=== PATIENT | male | born 1950 | race Two or more races ===

== ENCOUNTER 2024-02-25 15:04 | Inpatient (IN) | payer MEDICARE, MEDICAID ==
[~2024-02-25] VITALS: Ht 172.7 cm; Wt 60.9 kg
[2024-02-25] MEDS ORDERED: METHADONE HCL 10 MG TAB PO ONE ×2 (17:00)
[2024-02-25] MEDS ORDERED: SODIUM CHLORIDE 0.9% 1,000 ML IV ONE (17:00)
--- NOTE | 2024-02-25 17:06 | ED.PDOC ---
History of Present Illness HPI Comments 73 year old male brought in by EMS presents to the ED with a chief complaint of generalized weakness onset today. Patient states he woke up today experiencing weakness. Patient has been experiencing a productive cough for the past 3 months that has not improved. Upon ED arrival O2 sat was 98% with no respiratory distress noted. PMHx HTN, anemia, GERD, HLD, Liver cirrhosis, DM. Denies chest pain, shortness of breath, fever, congestion, sore throat, dizziness, headache, nausea, vomiting, diarrhea. No other symptoms or modifying factors present at this time. Chief Complaint: Shortness of Breath Time Seen by MD: 16:47 Primary Care Provider: GA Reviewed Notes: Medications, Allergies Allergies: Coded Allergies: Sulfamethoxazole w/Trimethoprim (Verified Allergy, Intermediate, 02/25/24) Codeine (Verified Allergy, Mild, 02/25/24) Information Source: Patient, Emergency Med Personnel Mode of Arrival: EMS Severity: Moderate Timing: Hours Duration: Since onset Prehospital treatment: None Past Medical History PAST MEDICAL HISTORY: Anemia, DM, GERD, High Lipids, HTN, Liver Surgical History (Other): RT leg bypass Family History Family History: Unknown Social History Smoker: Non-Smoker Alcohol: Denies ETOH Use Drugs: Denies Drug Use Constitutional: reports: weakness; denies: chills, diaphoresis, fatigue, fever, malaise, sweats, others EENTM: denies: blurred vision, double vision, ear bleeding, ear discharge, ear drainage, ear pain, ear ringing, eye pain, eye redness, hearing loss, mouth pain, mouth swelling, nasal discharge, nose bleeding, nose congestion, nose pain, photophobia, tearing, throat pain, throat swelling, voice changes, others Respiratory: reports: cough; denies: hemoptysis, orthopnea, SOB at rest, shortness of breath, SOB with excertion, stridor, wheezing, others Cardiovascular: denies: chest pain, dizzy spells, diaphoresis, Dyspnea on exertion, edema, irregular heart beat, left arm pain, lightheadedness, palpitations, PND, syncope, others Gastrointestinal: denies: abdomen distended, abdominal pain, blood streaked bowels, constipated, diarrhea, dysphagia, difficulty swallowing, hematemesis, melena, nausea, poor appetite, poor fluid intake, rectal bleeding, rectal pain, vomiting, others Genitourinary: denies: burning, dysuria, flank pain, frequency, hematuria, incontinence, penile discharge, penile sore, pain, testicle pain, testicle swelling, urgency, others Neurological: reports: weakness; denies: dizziness, fainting, headache, left sided numbness, left sided weakness, numbness, paresthesia, pre-existing deficit, right sided numbness, right sided weakness, seizure, speech problems, tingling, tremors, others Musculoskeletal: denies: back pain, gout, joint pain, joint swelling, muscle pain, muscle stiffness, neck pain, others Integumetry: denies: bruises, change in color, change in hair/nails, dryness, laceration, lesions, lumps, rash, wounds, others Allergic/Immunocompromised: denies: Difficulty Healing, Frequent Infections, Hives, Itching, others Hematologic/Lymphatic: denies: anemia, blood clots, easy bleeding, easy bruising, swollen glands, others Endocrine: denies: excessive hunger, excessive sweating, excessive thirst, excessive urination, flushing, intolerance to cold, intolerance to heat, unexplained weight gain, unexplained weight loss, others Psychiatric: denies: anxiety, bipolar disorder, depression, hopeless, panic disorder, schizophrenia, sleepless, suicidal, others All Other Systems: Reviewed and Negative Physical Exam General Appearance: No Apparent Distress, Thin HEENT: Normal ENT Inspection, PERRL/EOMI Neck: Full Range of Motion, Non-Tender, Normal, Normal Inspection Respiratory: Chest Non-Tender, Lungs Clear, No Accessory Muscle Use, No Respiratory Distress, Normal Breath Sounds Cardiovascular: No Edema, No JVD, No Murmur, No Gallop, Normal Peripheral Pulses, Regular Rate/Rhythm Breast Exam: Deferred Gastrointestinal: No Organomegaly, Non Tender, No Pulsatile Mass, Normal Bowel Sounds, Soft Genitalia: Deferred Pelvic: Deferred Rectal: Deferred Extremities: No calf tenderness, Normal capillary refill, Normal inspection, Normal range of motion, Non-tender, No pedal edema Neurologic: Alert, turf sales person II-XII nml as Tested, No Motor Deficits, Normal Affect, Normal Mood, No Sensory Deficits Cerebellar Function: Normal Reflexes: Normal Skin: Dry, Normal Color, Warm Peripheral Pulses: 1+ carotid (R), 1+ carotid (L) Lymphatic: No Adenopathy Was a procedure done? Was a procedure done?: No EKG EKG : Pulse Rate (adult): 53 Shanks: RAD Cardiac Rhythm: PAC's Block: RBBB Differential Dx Considerations may include: Electrolyte disorder myocardial infarction angina pneumonia CHF pulmonary embolism atrial fibrillation COPD exacerbation X-Ray, Labs, Meds, VS Vital Signs Date Time Temp Pulse Resp B/P (MAP) Pulse Ox O2 Delivery O2 Flow Rate FiO2 02/25/24 17:43 53 02/25/24 15:15 18 98 Room Air* 0 21 02/25/24 15:13 53 02/25/24 15:10 98.1 59 16 133/70 (91) 98 Lab Test 02/25/24 17:44 Range/Units White Blood Count 13.4 H 4.4-10.8 10^3/uL Red Blood Count 4.02 L 4.5-5.90 10^6/uL Hemoglobin 13.1 L 13.5-17.5 g/dL Hematocrit 39.3 L 41.0-53.0 % Mean Corpuscular Volume 97.9 80.0-100.0 fL Mean Corpuscular Hemoglobin 32.7 H 28.0-32.0 pg Mean Corpuscular Hemoglobin Concent 33.4 32.0-36.0 g/dL Red Cell Distribution Width 14.5 H 11.8-14.3 % Platelet Count 377 140-450 10^3/uL Mean Platelet Volume 7.3 6.9-10.8 fL Neutrophils (%) (Auto) 61.1 37.0-80.0 % Lymphocytes (%) (Auto) 30.0 10.0-50.0 % Monocytes (%) (Auto) 7.4 0.0-12.0 % Eosinophils (%) (Auto) 1.3 0.0-7.0 % Basophils (%) (Auto) 0.2 0.0-2.0 % Neutrophils # (Auto) 8.2 1.6-8.6 10 ^3/uL Lymphocytes # (Auto) 4.0 0.4-5.4 10 ^3/uL Monocytes # (Auto) 1.0 0-1.3 10 ^3/uL Eosinophils # (Auto) 0.2 0-0.8 10 ^3/uL Basophils # (Auto) 0 0-0.2 10 ^3/uL Nucleated Red Blood Cells 0.2 % D-Dimer, Quantitative 0.37 0.0-0.49 mg/L FEU Sodium Level 144 136-145 mmol/L Potassium Level 4.5 3.5-5.1 mmol/L Chloride Level 108 H 98-107 mmol/L Carbon Dioxide Level 29 20-31 mmol/L Anion Gap 7 5-15 Blood Urea Nitrogen 12 9-23 mg/dL Creatinine 0.93 0.700-1.30 mg/dL Glomerular Filtration Rate Calc 87 >90 mL/min BUN/Creatinine Ratio 12.9 10.0-20.0 Serum Glucose 82 74-106 mg/dL Calcium Level 10.0 8.7-10.4 mg/dL Magnesium Level 2.1 1.6-2.6 mg/dL Total Bilirubin 0.5 0.2-1.0 mg/dL Aspartate Amino Transferase (AST) 26 13-40 U/L Alanine Aminotransferase (ALT) 42 H 7-40 U/L Alkaline Phosphatase 97 46-116 U/L Troponin I High Sensitivity 4 </=54 ng/L Total Protein 6.0 5.7-8.2 g/dL Albumin 4.2 3.2-4.8 g/dL [place] [id number] Ph: [phone] DIAGNOSTIC IMAGING Diagnostic Imaging Report : [id number] Signed PATIENT: TIERA SALMERON ACCT: [id number] UNIT: [id number] : 1950 LOC: ER ROOM / BED: / AGE / SEX: 73 / M ADM STATUS: REG ER SERVICE 51 ORDERING PHYSICIAN: JUDY MARI MD PROCEDURE(s): CXR2 - CHEST TWO VIEWS ROUTINE REASON: sob ORDER NUMBER(s): [id number], ACCESSION NUMBER(s): [id number] EXAM: XR Chest, 2 Views CLINICAL INDICATION: sob TECHNIQUE: Frontal and lateral views of the chest. COMPARISON: None FINDINGS: LUNGS AND PLEURAL SPACES: Unremarkable. No consolidation. No pneumothorax. HEART: Unremarkable. No cardiomegaly. MEDIASTINUM: Unremarkable. Normal mediastinal contour. BONES/JOINTS: Unremarkable. No acute fracture. OTHER FINDINGS: . . . IMPRESSION: No acute cardiopulmonary process. HS:Y ATED BY: JAMES MARTINEZ MD DICTATED DATE/TIME: 02/25/241719 SIGNED BY: JAMES MARTINEZ MD SIGNED DATE/TIME: 02/25/241719 CC: X-Ray, Labs, Meds, VS Comment Course in the emergency department eventful patient came in complaining of generalized weakness shortness of breath chest pain and for the past three months cough and congestion patient with a history of irregular heartbeat hypertension COPD DM and CHF The chest x-ray is normal EKG shows normal sinus rhythm next 53 with PACs right bundle-branch block and right axis deviation Troponin at four CMP normal D-dimer 0.37 Urine pending Magnesium 2.1 CBC [id number] with 61% neutrophils normal H&H Patient will be admitted for further care Time of 1ST Reevaluation: 17:17 Reevaluation 1ST: Unchanged Time of 2ND Reevaluation: 18:38 Reevaluation 2ND: Improved Patient Education/Counseling: Diagnosis, Treatment, Prognosis Family Education/Counseling: No Family Present Additional Information The following tests were ordered, and results were reviewed by me: TROP. CBC, CMP, D-DIMER, UA, XY CHEST 2 VIEWS, MAGNESIUM, EKG, BLOOD CULTURE Additional Information was gathered from interviewing the following independent historians: EMS I reviewed and agreed with the following test results read by other providers: XY CHEST 2 VIEWS I discussed treatment and results with medical personnel and: patient Departure 1 Departure Time of Disposition: 18:39 Impression: Primary Impression: COPD with exacerbation Additional Impressions: Generalized weakness Chest pain Disposition: ADMITTED INPATIENT Admit to: Tele Condition: Fair Critical Care Note Critical Care Time?: No Stability Stability form required: Yes Unstable for transfer: Telemetry monitoring (Telemetry monitoring required), Requires medication (Requires Med for stabilization) Heart Score Heart Score: Heart Score Response (Comments) Value History Moderate Suspicious 1 EKG Repolarization Disturb 1 Age >65 2 Risk Factors >3 or Hx ASHD 2 Troponin Normal limit 0 Total 6 I personally scribed for JUDY MARI MD ([email or web address]) on 02/25/24 at 17:06. Electronically submitted by Breanna Mcconnell ([email or web address]). I personally scribed for JUDY MARI MD ([email or web address]) on 02/25/24 at 17:11. Electronically submitted by Breanna Mcconnell ([email or web address]). I personally scribed for JUDY MARI MD ([email or web address]) on 02/25/24 at 17:35. Electronically submitted by Breanna Mcconnell ([email or web address]). JUDY MARI MD Feb 25, 2024 17:06
--- NOTE | 2024-02-25 17:22 | DVH ---
EXAM: XR Chest, 2 Views CLINICAL INDICATION: sob TECHNIQUE: Frontal and lateral views of the chest. COMPARISON: None FINDINGS: LUNGS AND PLEURAL SPACES: Unremarkable. No consolidation. No pneumothorax. HEART: Unremarkable. No cardiomegaly. MEDIASTINUM: Unremarkable. Normal mediastinal contour. BONES/JOINTS: Unremarkable. No acute fracture. OTHER FINDINGS: . . . IMPRESSION: No acute cardiopulmonary process. HS:Y
[2024-02-25 18:12] LABS: Basophils # (auto) 0 10 ^3/uL (0-0.2); Basophils % (auto) 0.2 % (0.0-2.0); Eosinophils # (auto) 0.2 10 ^3/uL (0-0.8); Eosinophils % (auto) 1.3 % (0.0-7.0); Hematocrit 39.3 % (41.0-53.0); Hemoglobin 13.1 g/dL (13.5-17.5); Mean Corpuscular Hemoglobin 32.7 pg (28.0-32.0); Mean Corpuscular Hgb Conc. 33.4 g/dL (32.0-36.0); Mean Corpuscular Volume 97.9 fL (80.0-100.0); Monocytes % (auto) 7.4 % (0.0-12.0); Neutrophils # (auto) 8.2 10 ^3/uL (1.6-8.6); Neutrophils % (auto) 61.1 % (37.0-80.0); Nucleated Red Blood Cells % 0.2 %; Platelet Count (auto) 377 10^3/uL (140-450); Red Blood Cells 4.02 10^6/uL (4.5-5.90); Red Cell Distribution Width 14.5 % (11.8-14.3); White Blood Cell 13.4 10^3/uL (4.4-10.8)
[2024-02-25 18:17] LABS: Albumin 4.2 g/dL (3.2-4.8); Alkaline Phosphatase 97 U/L (46-116); Anion Gap 7 (5-15); Aspartate Aminotransferase 26 U/L (13-40); BUN/Creatinine Ratio 12.9 (10.0-20.0); Bilirubin, Total 0.5 mg/dL (0.2-1.0); Blood Urea Nitrogen 12 mg/dL (9-23); Carbon Dioxide 29 mmol/L (20-31); Glucose 82 mg/dL (74-106); Magnesium 2.1 mg/dL (1.6-2.6); Potassium 4.5 mmol/L (3.5-5.1); Sodium 144 mmol/L (136-145)
[2024-02-25 18:23] LABS: Alanine Aminotransferase 42 U/L (7-40); Chloride 108 mmol/L (98-107)
--- NOTE | 2024-02-25 23:28 | DVHHPRES ---
History of Present Illness Resident Creating Document: ALEKSANDRA NAJERA RESIDENT History of Present Illness Patient is a 73-year-old male with past medical history of hypertension, questionable liver cirrhosis, peripheral arterial disease, chronic sinusitis, dyslipidemia, anemia, GERD who came in due to shortness of breath generalized weakness. According to the patient, since January he has been experiencing a productive cough with yellowish phlegm along with shortness of breaths and dizziness. Patient notes that his doctor [facility] informed him that he has "nodules in his lung". Patient also notes a weight loss of approximately 20 lb in the past 6 months. On review of systems, patient complains of fatigue, chills, productive cough, dyspnea, wheezing, palpitations. Past Medical History hypertension, questionable liver cirrhosis, peripheral arterial disease, chronic sinusitis, dyslipidemia, anemia, GERD Past Surgical History Appendectomy, right leg angioplasty in 2016, bunion surgery, hammertoe repair surgery Past Social History Smoking, half pack per day for the last 50 years Alcohol: Quit drinking in 2011, prior to that was drinking heavily. 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 Dyspnea, Edema, Lt Headedness, Other Gastrointestinal: No: Nausea, Vomiting, Abdominal Pain, Diarrhea, Constipation, Melena, Hematochezia, Other Genitourinary: No Dysuria, No Frequency, No Incontinence, No Hematuria, No Retention, No Other Musculoskeletal: No: other, neck pain, shoulder pain, arm pain, back pain, hand pain, leg pain, foot pain Skin: No: Rash, Lesions, Jaundice, Bruising, Other Neurological: No: Weakness, Numbness, Incoordination, Change in speech, Confusion, Seizures, Other Allergies: Coded Allergies: Sulfamethoxazole w/Trimethoprim (Verified Allergy, Intermediate, 02/25/24) Codeine (Verified Allergy, Mild, 02/25/24) Exam Vital Signs Vital Signs Date Time Temp Pulse Resp B/P (MAP) Pulse Ox O2 Delivery O2 Flow Rate FiO2 02/25/24 17:43 53 02/25/24 15:15 18 98 Room Air* 0 21 02/25/24 15:10 98.1 133/70 (91) General Appearance: Alert, Oriented X3, Cooperative, No acute distress, Other (Temporal wasting noted) HEENT: Atraumatic, PERRLA, EOMI, Mucous membr. moist/pink Respiratory: Clear to auscultation Cardiovascular: Regular rate, Normal S1, Normal S2, No murmurs Abdominal: Normal bowel sounds, Soft, No tenderness Extremities: No cyanosis, No edema Skin: No rashes, No breakdown, No significant lesion Neuro: Normal speech, Strength at 5/5 X4 ext, Sensation intact Psych/Mental Status: Mental status NL, Mood NL Labs/Xrays Labs Test 02/25/24 17:44 Range/Units White Blood Count 13.4 H 4.4-10.8 10^3/uL Red Blood Count 4.02 L 4.5-5.90 10^6/uL Hemoglobin 13.1 L 13.5-17.5 g/dL Hematocrit 39.3 L 41.0-53.0 % Mean Corpuscular Volume 97.9 80.0-100.0 fL Mean Corpuscular Hemoglobin 32.7 H 28.0-32.0 pg Mean Corpuscular Hemoglobin Concent 33.4 32.0-36.0 g/dL Red Cell Distribution Width 14.5 H 11.8-14.3 % Platelet Count 377 140-450 10^3/uL Mean Platelet Volume 7.3 6.9-10.8 fL Neutrophils (%) (Auto) 61.1 37.0-80.0 % Lymphocytes (%) (Auto) 30.0 10.0-50.0 % Monocytes (%) (Auto) 7.4 0.0-12.0 % Eosinophils (%) (Auto) 1.3 0.0-7.0 % Basophils (%) (Auto) 0.2 0.0-2.0 % Neutrophils # (Auto) 8.2 1.6-8.6 10 ^3/uL Lymphocytes # (Auto) 4.0 0.4-5.4 10 ^3/uL Monocytes # (Auto) 1.0 0-1.3 10 ^3/uL Eosinophils # (Auto) 0.2 0-0.8 10 ^3/uL Basophils # (Auto) 0 0-0.2 10 ^3/uL Nucleated Red Blood Cells 0.2 % D-Dimer, Quantitative 0.37 0.0-0.49 mg/L FEU Sodium Level 144 136-145 mmol/L Potassium Level 4.5 3.5-5.1 mmol/L Chloride Level 108 H 98-107 mmol/L Carbon Dioxide Level 29 20-31 mmol/L Anion Gap 7 5-15 Blood Urea Nitrogen 12 9-23 mg/dL Creatinine 0.93 0.700-1.30 mg/dL Glomerular Filtration Rate Calc 87 >90 mL/min BUN/Creatinine Ratio 12.9 10.0-20.0 Serum Glucose 82 74-106 mg/dL Calcium Level 10.0 8.7-10.4 mg/dL Magnesium Level 2.1 1.6-2.6 mg/dL Total Bilirubin 0.5 0.2-1.0 mg/dL Aspartate Amino Transferase (AST) 26 13-40 U/L Alanine Aminotransferase (ALT) 42 H 7-40 U/L Alkaline Phosphatase 97 46-116 U/L Troponin I High Sensitivity 4 </=54 ng/L Total Protein 6.0 5.7-8.2 g/dL Albumin 4.2 3.2-4.8 g/dL Assessment/Plan Assessment/Plan COPD exacerbation Possible community-acquired pneumonia: Gram-positive versus Gram-negative - CXR: No acute cardiopulmonary process - IV azithromycin, IV ceftriaxone - ipratropium and albuterol med nebs - did sputum culture, ESR, CRP 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 Cirrhotic liver. - HIV negative, ordered hepatitis panel - ordered AFP, CEA, CA 19 9 Peripheral arterial disease Dyslipidemia - resumed home medication Plavix 75 mg - atorvastatin 40 mg p.o. daily Goals of care: Full code, discussed for >16 minutes on 02/25/24 Plan discussed with patient Plan discussed with Dr. Menezes Plan discussed with: Patient, Other (RN) Date of Service: Feb 25, 2024 Billing Provider: SHUKRI MENEZES MD Common Visit Codes: 97702-[id number] INP/OBS CARE (HIGH) Secondary Visit Codes: 73751-[id number] CARE PLAN 30 MINUTES ALEKSANDRA NAJERA RESIDENT Feb 25, 2024 23:28 SHUKRI MENEZES MD Feb 26, 2024 10:07
[2024-02-26] VITALS (15 sets, daily range): BP systolic 95–151; BP diastolic 47–75; PULSE 53–83; RESP 16–20; TEMP 97.7–98.5; O2SAT 95–100
--- NOTE | 2024-02-26 00:08 | DVH ---
INDICATION: cirrhosis TECHNIQUE: Multiple real-time sonographic images were obtained of the right upper quadrant. COMPARISON: None FINDINGS: The liver demonstrates heterogeneous coarse echotexture without focal mass lesions. The li colleen measures 13.8 cm. There is no intrahepatic or extrahepatic ductal dilatation. The common duct measures 0.5 cm. The gallbladder is without evidence of stone or sludge. The gallbladder wall measures 0.2 cm and is within normal limits. The right kidney measures 9.1 cm. The right kidney is normal in contour, size, and shape. The echog enicity is normal. There is no hydronephrosis. Multiple simple cysts are seen in the right kidney, t he largest measuring up to 1.5 cm. The pancreas is not well visualized due to overlying bowel gas. IMPRESSION: 1. No evidence of cholecystitis. 2. Cirrhotic liver.
[2024-02-26 00:32] LABS: INR 1.06 (0.9-1.15); Prothrombin Time 11.2 sec (9.3-11.8)
[2024-02-26 00:33] LABS: Albumin 3.8 g/dL (3.2-4.8)
[2024-02-26 00:54] LABS: Erythrocyte Sedimentation Rate 7 mm/hr (0-20)
[2024-02-26 01:34] LABS: CRP High Sensitivity 0.3 mg/dL (<1.0)
[2024-02-26] MEDS: cefTRIAXone 1GM/50ML D5W 50 ML IV ONE (01:36)
[2024-02-26] MEDS: AZITHROMYCIN 500MG/ 250ML 250 ML IV ONE (01:41)
[2024-02-26 05:00] LABS: Urine Bacteria None Seen /hpf (None Seen)
[2024-02-26 05:30] LABS: Calcium 8.7 mg/dL (8.7-10.4); Sodium 141 mmol/L (136-145)
[2024-02-26 05:31] LABS: Anion Gap 6 (5-15); Carbon Dioxide 26 mmol/L (20-31)
[2024-02-26 05:36] LABS: BUN/Creatinine Ratio 16.9 (10.0-20.0); Blood Urea Nitrogen 15 mg/dL (9-23)
[2024-02-26 05:37] LABS: Chloride 109 mmol/L (98-107); Glucose 152 mg/dL (74-106); Potassium 3.3 mmol/L (3.5-5.1)
[2024-02-26 05:56] LABS: Urine Blood Negative /uL (Negative); Urine Clarity Clear (Clear); Urine Color Yellow (Yellow); Urine Mucus FEW (None Seen); Urine Protein, UAD Negative (Negative); Urine Squamous Epithelial Cell FEW /hpf (<5); Urine Urobilinogen Normal (Negative); Urine WBC 1 /hpf (0 - 3)
[2024-02-26] MEDS: POTASSIUM EFFERVESENT TAB 25 MEQ PO ONE (06:08)
[2024-02-26] MEDS: ALBUTEROL SULF 2.5 MG/0.5ML(0.5%) NEB SOLN NEB SCH (06:50)
[2024-02-26] MEDS: IPRATROPIUM BROM 0.5 MG/2.5ML INH SOL NEB SCH (06:51)
--- NOTE | 2024-02-26 09:40 | DVH ---
EXAM: CT Chest Without Intravenous Contrast CLINICAL INDICATION: recent weight loss with previos hx of lung nodules TECHNIQUE: Axial computed tomography images of the chest without intravenous contrast. This CT exam was performed using one or more of the following dose reduction techniques: automated exposure cont rol, adjustment of the mA and/or kV according to patient size, and/or use of iterative reconstruction technique. RADIATION DOSE: CTDlvol= 6 mGy, DLP= 255.08 mGy-cm COMPARISON: None FINDINGS: LUNGS AND PLEURAL SPACES: Moderate centrilobular emphysema. No consolidation. No pneumothorax. No significant effusion. No suspicious pulmonary nodules. HEART: Unremarkable. No cardiomegaly. No significant pericardial effusion. No significant coronar y artery calcifications. MEDIASTINUM: Small esophageal hiatal hernia. BONES/JOINTS: Unremarkable. No acute fracture. No dislocation. SOFT TISSUES: Unremarkable. VASCULATURE: Aortic disease . No thoracic aortic aneurysm. LYMPH NODES: Unremarkable. No enlarged lymph nodes. OTHER FINDINGS: . . . IMPRESSION: 1. No suspicious pulmonary nodules. 2. Small esophageal hiatal hernia. 3. Moderate centrilobular emphysema. HS:Y
[2024-02-26] MEDS: KETOROLAC TROMETH 30 MG/ML 1ML VIAL IV ONE (09:53)
[2024-02-26] MEDS: CLOPIDOGREL BISULFATE 75 MG TAB PO SCH (09:55)
--- NOTE | 2024-02-26 11:09 | DVHPNRES ---
Progress Note Date Seen: Feb 26, 2024 Resident Creating Document: MARIA LUZ GIL RESIDENT Has the PT tested + for MRSA If YES, has PT been informed?: No Medical Necessity Reason Pt with a Central, PICC or Fol: No Subjective Review of Systems This is a 73-year-old male with past medical history of hypertension, COPD, liver cirrhosis, peripheral arterial disease, chronic sinusitis, dyslipidemia, anemia, GERD who came in due to shortness of breath generalized weakness. According to the patient, since January he has been experiencing a productive cough with yellowish phlegm along with shortness of breaths and dizziness. Patient notes that his doctor at the [facility] informed him that he has "nodules in his lung". Patient also notes a weight loss of approximately 20 lb in the past 6 months. Upon admission, The patient was complaining of fatigue, gen weakness, chills and reported fever at home. He also mentioned that woke up sweating the night before coming to the ED. CT of the chest was ordered and showed emphysematous changes but no evidence of pulmonary nodules, consolidations, pleural effusions or any other lung abnormalities. The patient was started on IV antibiotics for possible pneumonia, which seems like a COPD exacerbation. The patient was admitted for assessment and management. Patient seen and examined at bedside. The patient is complaining of mild shortness of breath, cough, generalized weakness and fatigue. The patient also reported associated headache for which one dose of ketorolac 50 mg IV was administered. We will start the patient on methylprednisolone 40 mg daily, continue respiratory therapy with albuterol and ipratropium med nebs and IV antibiotics. CT of the chest ruled out previous possible pulmonary nodules, there are no consolidations, pleural effusion or other lung abnormalities. We will keep monitoring closely saturation. Patient is currently on room air saturating 98%. ROS Constitutional: Reports generalized weakness, fatigue and recent weight loss in the last six months. Denies fever and chills. HEENT: Denies changes in vision and hearing. Respiratory: Reports mild shortness of breath and cough Cardiovascular: Denies chest discomfort or palpitations GI: Denies abdominal pain, nausea, vomiting and diarrhea. : Denies dysuria and urinary frequency. Musculoskeletal: Denies myalgias and joint pain Skin: Denies rash and pruritus. Neurological: Reports headache.Denies dizziness, vision or hearing problems Objective vital signs Vital Sign Date Time Temp Pulse Resp B/P (MAP) Pulse Ox O2 Delivery O2 Flow Rate FiO2 02/26/24 10:00 99 Room Air* 0 21 02/26/24 09:00 98.5 53 16 95/47 (63) 98.5 medications Current Medications Medications Dose Ordered Sig/Georgie Route Start Time Stop Time Status Last Admin Dose Admin Albuterol 2.5 mg Q6HWA NEB 02/26/24 06:00 02/26/24 06:50 2.5 MG Ipratropium [place] 0.5 mg Q6HWA NEB 02/26/24 06:00 02/26/24 06:51 0.5 MG Azithromycin 250 ml @ 125 mls/hr DAILY IV 02/27/24 10:00 Ceftriaxone Sodium 50 ml @ 100 mls/hr DAILY@09 IV 02/27/24 09:00 Clopidogrel Bisulfate 75 mg DAILY PO 02/26/24 10:00 02/26/24 09:55 75 MG Atorvastatin Calcium 40 mg HS PO 02/26/24 22:00 Examination Physical Examination General: Patient alert and oriented in person, place and time. Patient has generalized weakness and fatigue. Patient following commands. HEENT: Normocephalic, atraumatic, moist mucous membranes Respiratory/pulmonary: There is decreased bilateral lung sounds and decreased air movement on bilateral lung gudino. No crackles, wheezes or bronchus auscultated at this time. Cardiovascular: Normal heart sounds S1 and S2 with no associated murmurs Abdomen: Abdomen nondistended, there is no pain to palpation in any of the abdominal quadrants, no palpable masses. Extremities: There is no peripheral edema present at the lower extremities. Peripheral Pulses: 3+ Radial (R). 3+ Radial (L). 3+ Dorsalis pedis (R). 3+ Dorsalis pedis(L) Skin: No rashes or pruritus, there is no sacral edema present at this time. Neurological: Intact cranial nerves with no focal neurologic deficits laboratory and microbiology Laboratory Tests 02/26/24 04:00 02/25/24 17:44 Test 02/26/24 04:00 Range/Units Serum Glucose 152 H 74-106 mg/dL Problem List/Assessment/Plan Problem List/Assessment/Plan Assessment/plan Acute respiratory distress likely due to COPD exacerbation R/O bacterial gram +/- pneumonia -initial chest x-ray was showing bilateral hyperinflation of the lungs without any evidence of consolidations or vascular congestion. -CT scan of the chest was ordered to rule out possible previous pulmonary nodules, which came back showing no evidence of consolidations, pleural effusions, pulmonary nodules or any other lung abnormalities aside from emphysematous changes. -continue azithromycin IV -start methylprednisolone 40 mg IV daily -respiratory therapy with albuterol and ipratropium med nebs -close monitor of saturation Possible pulmonary nodules -patient stated that in previous [facility] they mentioned pulmonary nodules -CT scan of the chest was ordered to rule out possible previous pulmonary nodules, which came back showing no evidence of consolidations, pleural effusions, pulmonary nodules or any other lung abnormalities aside from emphysematous changes. Primary hypertension -blood pressure is currently running on the lower side, we will hold medications and reassess -monitor blood pressure closely Liver cirrhosis -AST and ALT were 26 and 42 respectively -ultrasound of the liver showed changes consistent of liver cirrhosis and there was no cholecystitis or cholelithiasis -monitor liver enzymes History of peripheral artery disease -continue on clopidogrel 75 mg daily -continue atorvastatin 40 mg daily Dyslipidemia -ordered lipid panel -continue atorvastatin 40 mg daily GERD -Pantoprazole 40mg daily Goals of care discussed with the patient at bedside for 25min, FULL CODE Plan discussed with Dr. Fitzpatrick Plan discussed with: Patient My Orders My Orders Orders - MARIA LUZ GIL Procedure Category Date Status Time Chest Without Contrast CT 02/26/24 Resulted 09:01 Covid19 Antigen Neetu LAB 02/26/24 Logged Rapid Influenza A&B LAB 02/26/24 Logged 10:27 Methylprednisolone PHA 02/26/24 Transmitted Sod Succ (Solu Medrol 11:00 MARIA LUZ GIL RESIDENT Feb 26, 2024 11:09
[2024-02-26 11:52] LABS: COVID19 ANTIGEN SOFIA FIA NEGATIVE (NEGATIVE); Rapid Influenza A Negative (Negative); Rapid Influenza B Negative (Negative)
[2024-02-26 11:55] LABS: Triglycerides 48 mg/dL (< 150)
[2024-02-26 11:56] LABS: LDL Cholesterol 25 mg/dL (< 100)
[2024-02-26 11:57] LABS: Cholesterol 73 mg/dL (< 200)
[2024-02-26 12:16] LABS: HDL Cholesterol 36 mg/dL (40-59)
[2024-02-26] MEDS: methylPREDNISolone SOD SUCC 40 MG/ML VL IV SCH (12:20)
[2024-02-26] MEDS ORDERED: CLOP75TA70 PO (17:49)
[2024-02-26] MEDS ORDERED: LISI40TA16 PO (17:49)
[2024-02-26] MEDS ORDERED: HYDR-4795 PO (17:49)
[2024-02-26] MEDS ORDERED: CYCL-839 PO (17:49)
[2024-02-26] MEDS ORDERED: FERR325T24 PO (17:49)
[2024-02-26] MEDS: ATORVASTATIN 20 MG TAB PO SCH (21:55)
[2024-02-27] VITALS (10 sets, daily range): BP systolic 123–134; BP diastolic 61–86; PULSE 56–82; RESP 16–20; TEMP 36.6; O2SAT 96–100
[2024-02-27] MEDS: PANTOPRAZOLE 40 MG TAB PO SCH (05:36)
[2024-02-27 07:44] LABS: Alanine Aminotransferase 33 U/L (7-40); Albumin 3.7 g/dL (3.2-4.8); Alkaline Phosphatase 88 U/L (46-116); Anion Gap 6 (5-15); Aspartate Aminotransferase 21 U/L (13-40); BUN/Creatinine Ratio 18.6 (10.0-20.0); Blood Urea Nitrogen 16 mg/dL (9-23); Calcium 9.9 mg/dL (8.7-10.4); Carbon Dioxide 26 mmol/L (20-31); Glucose 104 mg/dL (74-106); Magnesium 2.3 mg/dL (1.6-2.6); Potassium 4.7 mmol/L (3.5-5.1); Sodium 140 mmol/L (136-145)
[2024-02-27 07:45] LABS: Bilirubin, Total 0.5 mg/dL (0.2-1.0)
[2024-02-27 07:55] LABS: Basophils # (auto) 0 10 ^3/uL (0-0.2); Eosinophils # (auto) 0 10 ^3/uL (0-0.8); Hematocrit 37.3 % (41.0-53.0); Hemoglobin 12.7 g/dL (13.5-17.5); Lymphocytes # (auto) 2.7 10 ^3/uL (0.4-5.4); Lymphocytes % (auto) 13.4 % (10.0-50.0); Mean Corpuscular Hemoglobin 32.9 pg (28.0-32.0); Mean Corpuscular Hgb Conc. 34.1 g/dL (32.0-36.0); Mean Corpuscular Volume 96.4 fL (80.0-100.0); Monocytes # (auto) 0.9 10 ^3/uL (0-1.3); Monocytes % (auto) 4.7 % (0.0-12.0); Neutrophils # (auto) 16.4 10 ^3/uL (1.6-8.6); Neutrophils % (auto) 81.9 % (37.0-80.0); Nucleated Red Blood Cells % 0.1 %; Platelet Count (auto) 379 10^3/uL (140-450); Red Blood Cells 3.87 10^6/uL (4.5-5.90); Red Cell Distribution Width 14.1 % (11.8-14.3)
[2024-02-27 07:59] LABS: Chloride 108 mmol/L (98-107)
[2024-02-27] MEDS: cefTRIAXone 1GM/50ML D5W 50 ML IV SCH (10:59)
[2024-02-27] MEDS ORDERED: PRED20TA2 PO (14:06)
[2024-02-27] MEDS ORDERED: AZIT500T66 PO (14:06)
[2024-02-27] MEDS ORDERED: PANT40TA2 PO (14:06)
[2024-02-27] MEDS ORDERED: ATOR40TA52 PO (14:06)
[2024-02-27] MEDS ORDERED: ALBUAER3 IN (14:10)
[2024-02-27] MEDS ORDERED: BUDE1AER5 IN (14:10)
[2024-02-27] MEDS: AZITHROMYCIN 500MG/ 250ML 250 ML IV SCH (14:17)
--- NOTE | 2024-02-27 15:03 | DVHDSRES ---
Discharge Summary Date of Admission Resident Creating Document: MARIA LUZ GIL RESIDENT Feb 25, 2024 at 23:24 Date of Discharge: Feb 27, 2024 Admitting Diagnosis Acute respiratory failure secondary to COPD exacerbation Wounds: No wound was present Labs/Diagnostic Data: Laboratory Results Test 02/27/24 06:39 02/26/24 10:45 02/26/24 04:00 02/26/24 00:00 White Blood Count 20.0 10^3/uL (4.4-10.8) Red Blood Count 3.87 10^6/uL (4.5-5.90) Hemoglobin 12.7 g/dL (13.5-17.5) Hematocrit 37.3 % (41.0-53.0) Mean Corpuscular Volume 96.4 fL (80.0-100.0) Mean Corpuscular Hemoglobin 32.9 pg (28.0-32.0) Mean Corpuscular Hemoglobin Concent 34.1 g/dL (32.0-36.0) Red Cell Distribution Width 14.1 % (11.8-14.3) Platelet Count 379 10^3/uL (140-450) Mean Platelet Volume 7.4 fL (6.9-10.8) Neutrophils (%) (Auto) 81.9 % (37.0-80.0) Lymphocytes (%) (Auto) 13.4 % (10.0-50.0) Monocytes (%) (Auto) 4.7 % (0.0-12.0) Eosinophils (%) (Auto) 0.0 % (0.0-7.0) Basophils (%) (Auto) 0.0 % (0.0-2.0) Neutrophils # (Auto) 16.4 10 ^3/uL (1.6-8.6) Lymphocytes # (Auto) 2.7 10 ^3/uL (0.4-5.4) Monocytes # (Auto) 0.9 10 ^3/uL (0-1.3) Eosinophils # (Auto) 0 10 ^3/uL (0-0.8) Basophils # (Auto) 0 10 ^3/uL (0-0.2) Nucleated Red Blood Cells 0.1 % Sodium Level 140 mmol/L (136-145) Potassium Level 4.7 mmol/L (3.5-5.1) Chloride Level 108 mmol/L (98-107) Carbon Dioxide Level 26 mmol/L (20-31) Anion Gap 6 (5-15) Blood Urea Nitrogen 16 mg/dL (9-23) Creatinine 0.86 mg/dL (0.700-1.30) Glomerular Filtration Rate Calc 91 mL/min (>90) BUN/Creatinine Ratio 18.6 (10.0-20.0) Serum Glucose 104 mg/dL (74-106) Calcium Level 9.9 mg/dL (8.7-10.4) Magnesium Level 2.3 mg/dL (1.6-2.6) Total Bilirubin 0.5 mg/dL (0.2-1.0) Aspartate Amino Transferase (AST) 21 U/L (13-40) Alanine Aminotransferase (ALT) 33 U/L (7-40) Alkaline Phosphatase 88 U/L (46-116) Total Protein 6.0 g/dL (5.7-8.2) Albumin 3.7 g/dL (3.2-4.8) Influenza Type A Antigen Negative (Negative) Influenza Type B Antigen Negative (Negative) SARS-CoV-2 Antigen (Rapid) Negative (NEGATIVE) Hemoglobin A1c 5.3 % A1C (<5.7) Triglycerides Level 48 mg/dL (< 150) Cholesterol Level 73 mg/dL (< 200) LDL Cholesterol 25 mg/dL (< 100) HDL Cholesterol 36 mg/dL (40-59) Urine Color Yellow (Yellow) Urine Clarity Clear (Clear) Urine pH 6.0 (5.0-9.0) Urine Specific [place] 1.020 (1.001-1.035) Urine Protein Negative (Negative) Urine Ketones Negative (Negative) Urine Blood Negative /uL (Negative) Urine Nitrite Negative (Negative) Urine Bilirubin Negative (Negative) Urine Urobilinogen Normal mg/dL (Negative) Urine Leukocyte Esterase Negative /uL (Negative) Urine RBC <1 /hpf (0 - 3) Urine WBC 1 /hpf (0 - 3) Urine Squamous Epithelial Cells Few /hpf (<5) Urine Bacteria None seen /hpf (None Seen) Urine Mucus Few (None Seen) Urine Glucose Normal mg/dL (Normal) Test 02/25/24 23:59 02/25/24 17:44 Erythrocyte Sedimentation Rate 7 mm/hr (0-20) Prothrombin Time 11.2 sec (9.3-11.8) Prothrombin Time INR 1.06 (0.9-1.15) Activated Partial Thromboplast Time 27.0 SEC (24.5-34.5) C-Reactive Protein High Sensitivity 0.30 mg/dL (<1.0) Carcinoembryonic Antigen 2.00 ng/mL (<=5.0) HIV (1&2) Antibody Negative (Negative) D-Dimer, Quantitative 0.37 mg/L FEU (0.0-0.49) Troponin I High Sensitivity 4 ng/L (</=54) Other Laboratory Tests 02/27/24 06:39 Brief Hx & Hospital Course: This is a 73-year-old male with past medical history of hypertension, COPD, liver cirrhosis, peripheral arterial disease, chronic sinusitis, dyslipidemia, anemia, GERD who came in due to shortness of breath generalized weakness. According to the patient, since January he has been experiencing a productive cough with yellowish phlegm along with shortness of breaths and dizziness. Patient notes that his doctor at the [facility] informed him that he has "nodules in his lung". Patient also notes a weight loss of approximately 20 lb in the past 6 months. Upon admission, The patient was complaining of fatigue, gen weakness, chills and reported fever at home. CT of the chest showed emphysematous changes but no evidence of pulmonary nodules, consolidations, pleural effusions or any other lung abnormalities. Patient was treated with med neb with albuterol and ipratropium q.6hr., IV methylprednisolone 40 mg daily and IV ceftriaxone and IV azithromycin . Today morning patient mentioned improvement of his symptoms in terms of breathing and cough and discharge plan was discussed with the patient and all questions were answered. Patient is being discharged to home. Discharge diagnosis: Acute respiratory failure secondary to COPD exacerbation Ruled out community acquired bacterial gram +/- pneumonia Ruled out Possible pulmonary nodules Primary hypertension History of liver cirrhosis History of peripheral artery disease Dyslipidemia GERD Discharge disposition : Home Medications : Azithromycin 500 mg p.o. daily for 4 days, prednisolone 40 mg daily for 5 days, atorvastatin 40 mg at HS for 1 month, Protonix 40 mg p.o. daily for 1 month, inhaler 1 puff as needed for 1 month and budesonide formoterol fumarate inhaler 1 puff daily for 30 days. Follow up : Follow up with PCP in 1 week. Consults/Reason for consult No consultation was done. Operations or Procedures EXAM: CT Chest Without Intravenous Contrast CLINICAL INDICATION: recent weight loss with previos hx of lung nodules TECHNIQUE: Axial computed tomography images of the chest without intravenous contrast. This CT exam was performed using one or more of the following dose reduction techniques: automated exposure control, adjustment of the mA and/or kV according to patient size, and/or use of iterative reconstruction technique. RADIATION DOSE: CTDlvol= 6 mGy, DLP= 255.08 mGy-cm COMPARISON: None FINDINGS: LUNGS AND PLEURAL SPACES: Moderate centrilobular emphysema. No consolidation. No pneumothorax. No significant effusion. No suspicious pulmonary nodules. HEART: Unremarkable. No cardiomegaly. No significant pericardial effusion. No significant coronary artery calcifications. MEDIASTINUM: Small esophageal hiatal hernia. BONES/JOINTS: Unremarkable. No acute fracture. No dislocation. SOFT TISSUES: Unremarkable. VASCULATURE: Aortic disease . No thoracic aortic aneurysm. LYMPH NODES: Unremarkable. No enlarged lymph nodes. OTHER FINDINGS: . . . IMPRESSION: 1. No suspicious pulmonary nodules. 2. Small esophageal hiatal hernia. 3. Moderate centrilobular emphysema. EXAM: XR Chest, 2 Views CLINICAL INDICATION: sob TECHNIQUE: Frontal and lateral views of the chest. COMPARISON: None FINDINGS: LUNGS AND PLEURAL SPACES: Unremarkable. No consolidation. No pneumothorax. HEART: Unremarkable. No cardiomegaly. MEDIASTINUM: Unremarkable. Normal mediastinal contour. BONES/JOINTS: Unremarkable. No acute fracture. OTHER FINDINGS: . . . IMPRESSION: No acute cardiopulmonary process. INDICATION: cirrhosis TECHNIQUE: Multiple real-time sonographic images were obtained of the right upper quadrant. COMPARISON: None FINDINGS: The liver demonstrates heterogeneous coarse echotexture without focal mass lesions. The liver measures 13.8 cm. There is no intrahepatic or extrahepatic ductal dilatation. The common duct measures 0.5 cm. The gallbladder is without evidence of stone or sludge. The gallbladder wall measures 0.2 cm and is within normal limits. The right kidney measures 9.1 cm. The right kidney is normal in contour, size, and shape. The echogenicity is normal. There is no hydronephrosis. Multiple simple cysts are seen in the right kidney, the largest measuring up to 1.5 cm. The pancreas is not well visualized due to overlying bowel gas. IMPRESSION: 1. No evidence of cholecystitis. 2. Cirrhotic liver. Condition at Discharge: Fair Final Diagnosis/Problems List Acute respiratory failure secondary to COPD exacerbation Ruled out community acquired bacterial gram +/- pneumonia Ruled out Possible pulmonary nodules Primary hypertension History of liver cirrhosis History of peripheral artery disease Dyslipidemia GERD Discharge Disposition: Home Discharge Instruct/Medications Diet: Cardiac 2g Na,low cholest Activity: No Restrictions, As Tolerated Follow Up/Referral: Follow up with PCP in 1 week. Medications: Azithromycin 500 mg PO daily for 5 days. Prednisolone 40 mg daily for 5 days. Discharge Statement: "Patient was advised to return to the ER or call 911 if any headaches, dizziness, shortness of breath, chest pain, abdominal pain, bleeding, fevers, or worsening of medical condition. Patient was counseled about treatment plan, medications, possible side effects, patientverbalized understanding. All questions were answered to the best of my ability. This discharge took greater then 30 minutes in planning, reviewing documentation, counseling the patient, and discussing with other team members." ASSESSMENT ASSESSMENT Assessment Acute respiratory failure secondary to COPD exacerbation Ruled out community acquired bacterial gram +/- pneumonia Ruled out Possible pulmonary nodules Primary hypertension History of liver cirrhosis History of peripheral artery disease Dyslipidemia GERD GLORIA MAS RESIDENT Feb 27, 2024 15:03
[2024-02-28 09:31] LABS: Hepatitis B Surface Antigen Negative (Negative)
--- NOTE | 2024-02-28 09:50 | ECG ---
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
[2024-02-28 10:08] LABS: Hepatitis A Ab IgM Negative; Hepatitis B Core IgM Negative (Negative); Hepatitis C Antibody Negative (Negative)
[2024-02-28] MEDS ORDERED: ALBUAER3 IN (15:51)
[2024-02-28] MEDS ORDERED: BUDE1AER4 IN (15:51)
[2024-02-29 01:06] LABS: AFP Serum Tumor Marker 2.3 ng/mL (0.0-8.4)
== END 2024-02-27 18:01 | disposition home or self-care (01) | DRG 189 ==
LOC: ER 15:04 → EDBD 15:04 → OVERFLOW 23:24 → WEST WING 02-26 16:35
PROVIDERS: ADMIT Hospitalist; ATTEND Hospitalist
DX: J96.00 Acute respiratory failure, unspecified whether with hypoxia or hypercapnia (principal); J44.1 Chronic obstructive pulmonary disease with (acute) exacerbation; K74.60 Unspecified cirrhosis of liver; Z20.822 Contact with and (suspected) exposure to COVID-19; E78.5 Hyperlipidemia, unspecified; I10 Essential (primary) hypertension; K21.9 Gastro-esophageal reflux disease without esophagitis; E11.51 Type 2 diabetes mellitus with diabetic peripheral angiopathy without gangrene; Z79.4 Long term (current) use of insulin; Z79.899 Other long term (current) drug therapy; Z88.5 Allergy status to narcotic agent; Z88.2 Allergy status to sulfonamides
CPT/HCPCS: 36415; 71046; 71250; 76705; 80048; 80053; 80061; 80074; 81001; 82040; 82105; 82378; 83036; 83735; 84484; 85025; 85379; 85610; 85652; 85730; 86141; 86301; 86703; 87040; 87426; 87804; 93005; 94640; G0378; J1885

== ENCOUNTER 2024-03-27 17:48 | Emergency (ER) | payer MEDICARE, MEDICAID ==
[~2024-03-27] VITALS: Ht 177.8 cm; Wt 75.0 kg
[~2024-03-27 17:48] MED LIST: ALBUAER3 IN; ATOR40TA52 PO; AZIT500T66 PO; BUDE1AER4 IN; CLOP75TA70 PO; CYCL-839 PO; FERR325T24 PO; HYDR-4795 PO; LISI40TA16 PO; PANT40TA2 PO; PRED20TA2 PO
--- NOTE | 2024-03-27 18:33 | ECG ---
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
--- NOTE | 2024-03-27 20:51 | DVH ---
EXAM: CT HEAD WITHOUT CONTRAST INDICATION: nielsen TECHNIQUE: CT of the head without intravenous contrast. Radiation Dose Information: CT Dose: CTDI volume is 61.41 mGy. Dose-length product is 1107.17 mGy*cm The dose indicators for CT are the volume Computed Tomography (CT) Dose Index (CTDIvol) and the Dose Length Product (DLP), and are measured in units of mGy and mGy-cm, respectively. These indicators are not patient dose, but values generated from the CT scanner acquisition factors. The report includes radiation exposure data for exposures received during this examination. COMPARISON: None FINDINGS: There is no evidence of acute intracranial hemorrhage, extra-axial collection, mass effect, midline s hift, herniation or hydrocephalus. Partially calcified dural mass left frontal lobe ( series 2 images 45- 50) this may represent a small meningioma. The ventricles, sulci and cisterns are age appropriate. The peña-white differentiation is intact. Patchy periventricular and subcortical white matter hypoattenuation is nonspecific but may be related to small vessel ischemic disease. The visualized paranasal sinuses and mastoid air cells are clear. The surrounding soft tissues and osseous structures are unremarkable. IMPRESSION: 1. Partially calcified dural-based mass left frontal lobe measuring 2.3 x 1.3 cm. (series 2 images 45 - 50)
--- NOTE | 2024-03-27 21:37 | ED.PDOC ---
HPI (NEURO) HPI Comments 74-year-old male brought in by EMS. Patient states he has been having headache, came on randomly. States he was concerned because it was started having dizziness and blurred vision. Upon arrival EMS states he was blood pressure was 200s over 100. 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 Seen at [facility]. Patient denies any weakness in his extremities. Chief Complaint: Headache Time Seen by MD: 17:56 Primary Care Provider: ABAD Osuna Notes: Nurses Notes Information Source: Patient Mode of Arrival: EMS Severity: Mild Past Medical History PAST MEDICAL HISTORY: Anemia, DM, GERD, High Lipids, HTN, Liver Family History Family History: Unknown Social History Smoker: Non-Smoker Alcohol: Denies ETOH Use Drugs: Denies Drug Use Constitutional: denies: chills, diaphoresis, fatigue, fever, malaise, sweats, weakness, others EENTM: reports: blurred vision; denies: double vision, ear bleeding, ear discharge, ear drainage, ear pain, ear ringing, eye pain, eye redness, hearing loss, mouth pain, mouth swelling, nasal discharge, nose bleeding, nose congestion, nose pain, photophobia, tearing, throat pain, throat swelling, voice changes, others Respiratory: denies: cough, hemoptysis, orthopnea, SOB at rest, shortness of breath, SOB with excertion, stridor, wheezing, others Cardiovascular: denies: chest pain, dizzy spells, diaphoresis, Dyspnea on exertion, edema, irregular heart beat, left arm pain, lightheadedness, palpitations, PND, syncope, others Gastrointestinal: denies: abdomen distended, abdominal pain, blood streaked bowels, constipated, diarrhea, dysphagia, difficulty swallowing, hematemesis, melena, nausea, poor appetite, poor fluid intake, rectal bleeding, rectal pain, vomiting, others Genitourinary: denies: burning, dysuria, flank pain, frequency, hematuria, incontinence, penile discharge, penile sore, pain, testicle pain, testicle swelling, urgency, others Neurological: reports: headache; denies: dizziness, fainting, left sided numbness, left sided weakness, numbness, paresthesia, pre-existing deficit, right sided numbness, right sided weakness, seizure, speech problems, tingling, tremors, weakness, others Musculoskeletal: denies: back pain, gout, joint pain, joint swelling, muscle pain, muscle stiffness, neck pain, others Integumetry: denies: bruises, change in color, change in hair/nails, dryness, laceration, lesions, lumps, rash, wounds, others Allergic/Immunocompromised: denies: Difficulty Healing, Frequent Infections, Hives, Itching, others Hematologic/Lymphatic: denies: anemia, blood clots, easy bleeding, easy bruising, swollen glands, others Endocrine: denies: excessive hunger, excessive sweating, excessive thirst, excessive urination, flushing, intolerance to cold, intolerance to heat, unexplained weight gain, unexplained weight loss, others Physical Exam General Appearance: No Apparent Distress, Normal HEENT: Normal ENT Inspection, Pharynx Normal, TMs Normal Neck: Full Range of Motion, Non-Tender, Normal, Normal Inspection Respiratory: Chest Non-Tender, Lungs Clear, No Accessory Muscle Use, No Re spiratory Distress, Normal Breath Sounds Cardiovascular: No Edema, No JVD, No Murmur, No Gallop, Normal Peripheral Pulses, Regular Rate/Rhythm Breast Exam: Deferred Gastrointestinal: No Organomegaly, Non Tender, No Pulsatile Mass, Normal Bowel Sounds, Soft Genitalia: Deferred Pelvic: Deferred Rectal: Deferred Extremities: No calf tenderness, Normal capillary refill, Normal inspection, Normal range of motion, Non-tender, No pedal edema Musculoskeletal : Apperance: Normal Neurologic: Alert, 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 Was a procedure done?: No Differential Diagnosis (SZ) Seizure: N/A Headache: Migraine, Closed Head Injury, CVA, Epidural Hemorrhage, Subdural Hemorrhage, Mass Lesion, Sinusitis X-Ray, Labs, Meds, VS Vital Signs Date Time Temp Pulse Resp B/P (MAP) Pulse Ox O2 Delivery O2 Flow Rate FiO2 03/27/24 17:51 90 03/27/24 17:48 98.0 72 18 162/69 (100) 98 X-Ray, Labs, Meds, VS Comment Imaging: X-rays and CT scans were reviewed and interpreted by this provider, imaging shows no fractures and no pathological disease. Pending radiology review. Laboratory: Labs reviewed and interpreted by this provider. No significant abn ormalities noted. Patient has prior medical visits reviewed. Med reconciliation performed Vital signs reviewed Time of 1ST Reevaluation: 21:35 Reevaluation 1ST: Improved Patient Education/Counseling: Diagnosis, Treatment, Need For Follow Up (Patient advised to follow-up in the emergency room in the next 24 to 48 hours if symptoms do not improve. Advised follow-up with PCP in the next 3 to 5 days. Patient verbalized understanding. ) Family Education/Counseling: Diagnosis Departure 1 Departure Time of Disposition: 21:33 Impression: Primary Impression: Headache Qualified Codes: G44.209 - Tension-type headache, unspecified, not intractable Additional Impression: Hypertensive urgency Disposition: 01 HOME / SELF CARE / HOMELESS Condition: Fair Discharged With: Self Critical Care Note Critical Care Time?: No Stability Stability form required: No Heart Score Heart Score: Heart Score Response (Comments) Value History N/A 0 EKG N/A 0 Age N/A 0 Risk Factors N/A 0 Troponin N/A 0 Total 0 SILVIANO QUINTANAP Mar 27, 2024 21:37
[2024-03-27] MEDS: KETOROLAC TROMETH 30 MG/ML 1ML VIAL IM ONE (22:45)
[2024-03-27 23:14] VITALS: BP 138/79; PULSE 98; RESP 18; TEMP 97.8; O2SAT 98
== END 2024-03-27 23:15 | disposition home or self-care (01) ==
LOC: ER 17:48 → EDBD 17:48 → EDUNIT# 17:48 → ER 23:15
DX: I16.0 Hypertensive urgency (principal); R51.9 Headache, unspecified; E11.9 Type 2 diabetes mellitus without complications; K21.9 Gastro-esophageal reflux disease without esophagitis; E78.5 Hyperlipidemia, unspecified; I10 Essential (primary) hypertension
CPT/HCPCS: 70450; 93005; 96372; 99285; J1885

== ENCOUNTER 2024-05-11 09:13 | Inpatient (IN) | payer OTHER, MEDICAID ==
[~2024-05-11] VITALS: Ht 172.7 cm; Wt 60.7 kg
--- NOTE | 2024-05-11 09:30 | ED.PDOC ---
HPI Comments 74 year old male presents to the ED via EMS with a chief complaint of chest pain onset today. PMHx HTN, HLD, DM, anemia, liver, GERD. Per EMS, patient woke up experiencing chest pain, rates pain 2/10, was bradycardiac. Patient states he feels as if he is being "shocked" and noticed chest pain radiates to LT shoulder. Denies fevers, chills, nausea, vomiting, diarrhea, headache, dizziness, shortness of breath. No other symptoms or modifying factors present at this time. Chief Complaint: Chest Pain Time Seen by MD: 09:20 Primary Care Provider: ABAD Reviewed Notes: Medications, Allergies Allergies: Coded Allergies: Sulfamethoxazole w/Trimethoprim (Verified Allergy, Intermediate, 02/26/24) Codeine (Verified Allergy, Mild, 02/26/24) Home Meds Active Scripts Budesonide-Formoterol Fumarate (Budesonide/Formoterol Fum 160-4.5 Mcg/Act) 1 Aer Aer, 1 AER IN BID for 30 Days, #1 AER Prov:GLORIA MAS RESIDENT 02/28/24 Albuterol Sulfate (VENTOLIN MDI) 90 Mcg Ih, 90 MCG IN DAILYP PRN for 30 Days, #1 INH [facility] 02/28/24 Pantoprazole Sodium Sesquihydr (Protonix) 40 Mg Tab, 40 MG PO DAILY for 30 Days, #30 TAB Prov:GREGG MASRA RESIDENT 02/27/24 Prednisone (Prednisone) 20 Mg Tab, 40 MG PO DAILY for 5 Days, #5 MG Prov:GLORIA MAS [facility] 02/27/24 Azithromycin (Azithromycin) 500 Mg Tab, 1 TAB PO DAILY for 4 Days, #4 TAB Prov:GLORIA MAS [facility] 02/27/24 Atorvastatin Calcium (ATORVASTATIN CALCIUM) 40 Mg Tab, 1 TAB PO DAILY for 30 Days, #30 TAB 5 Refills Prov:GLORIA MAS RESIDENT 02/27/24 Reported Medications Clopidogrel Bisulfate (CLOPIDOGREL) 75 Mg Tab, 75 MG PO DAILY for 30 Days, MG 02/26/24 Ferrous Sulfate (Ferrous Sulfate) 325 Mg Tab, 325 MG PO DAILY for 30 Days, MG 02/26/24 Lisinopril (Lisinopril) 40 Mg Tab, 40 MG PO DAILY for 30 Days, MG 02/26/24 Hydrocodone-Acetaminophen (Hydrocodone Bitartrate/AC 7.5-325 mg) 1 Tab Tab, 1 TAB PO Q12HP PRN for PAIN SCALE 1 THRU 6, TAB 02/26/24 Cyclobenzaprine Hcl (Cyclobenzaprine Hcl) 10 Mg Tab, 10 MG PO Q12HP PRN for FOR MUSCLE SPASM for 30 Days, MG 02/26/24 Information Source: Patient, Emergency Med Personnel Mode of Arrival: EMS Severity: Moderate Timing: Hours Duration: Since onset Prehospital treatment: None Location: Chest (L) Radiation: Shoulder (L) Quality: Sharp Onset: At Rest Cardiac Risk Factors: Hyperlipidemia, HTN, Diabetes PE Risk Factors: None History of: None Modifying Factors: Nothing Past Medical History PAST MEDICAL HISTORY: Anemia, DM, GERD, High Lipids, HTN, Liver Surgical History: Denies all surgeries Family History Family History: Unknown Social History Smoker: Non-Smoker Alcohol: Denies ETOH Use Drugs: Denies Drug Use Lives In: Home Constitutional: denies: chills, diaphoresis, fatigue, fever, malaise, sweats, weakness, others EENTM: denies: blurred vision, double vision, ear bleeding, ear discharge, ear drainage, ear pain, ear ringing, eye pain, eye redness, hearing loss, mouth pain, mouth swelling, nasal discharge, nose bleeding, nose congestion, nose pain, photophobia, tearing, throat pain, throat swelling, voice changes, others Respiratory: denies: cough, hemoptysis, orthopnea, SOB at rest, shortness of breath, SOB with excertion, stridor, wheezing, others Cardiovascular: reports: chest pain; denies: dizzy spells, diaphoresis, Dyspnea on exertion, edema, irregular heart beat, left arm pain, lightheadedness, palpitations, PND, syncope, others Gastrointestinal: denies: abdomen distended, abdominal pain, blood streaked bowels, constipated, diarrhea, dysphagia, difficulty swallowing, hematemesis, melena, nausea, poor appetite, poor fluid intake, rectal bleeding, rectal pain, vomiting, others Genitourinary: denies: burning, dysuria, flank pain, frequency, hematuria, incontinence, penile discharge, penile sore, pain, testicle pain, testicle swelling, urgency, others Neurological: denies: dizziness, fainting, headache, left sided numbness, left sided weakness, numbness, paresthesia, pre-existing deficit, right sided numbness, right sided weakness, seizure, speech problems, tingling, tremors, weakness, others Musculoskeletal: denies: back pain, gout, joint pain, joint swelling, muscle pain, muscle stiffness, neck pain, others Integumetry: denies: bruises, change in color, change in hair/nails, dryness, laceration, lesions, lumps, rash, wounds, others Allergic/Immunocompromised: denies: Difficulty Healing, Frequent Infections, Hives, Itching, others Hematologic/Lymphatic: denies: anemia, blood clots, easy bleeding, easy bruising, swollen glands, others Endocrine: denies: excessive hunger, excessive sweating, excessive thirst, excessive urination, flushing, intolerance to cold, intolerance to heat, unexplained weight gain, unexplained weight loss, others Psychiatric: denies: anxiety, bipolar disorder, depression, hopeless, panic disorder, schizophrenia, sleepless, suicidal, others All Other Systems: Reviewed and Negative Physical Exam General Appearance: No Apparent Distress, Normal HEENT: Normal ENT Inspection, Pharynx Normal, TMs Normal Neck: Full Range of Motion, Non-Tender, Normal, Normal Inspection Respiratory: Chest Non-Tender, Lungs Clear, No Accessory Muscle Use, No Respiratory Distress, Normal Breath Sounds Cardiovascular: No Edema, No JVD, No Murmur, No Gallop, Normal Peripheral Pulses, Regular Rate/Rhythm Breast Exam: Deferred Gastrointestinal: No Organomegaly, Non Tender, No Pulsatile Mass, Normal Bowel Sounds, Soft Genitalia: Deferred Pelvic: Deferred Rectal: Deferred Extremities: No calf tenderness, Normal capillary refill, Normal inspection, Normal range of motion, Non-tender, No pedal edema Musculoskeletal : Apperance: Normal Neurologic: Alert, instructional systems specialist II-XII nml as Tested, No Motor Deficits, Normal Affect, Normal Mood, No Sensory Deficits Cerebellar Function: Normal Reflexes: Normal Skin: Dry, Normal Color, Warm Lymphatic: No Adenopathy Was a procedure done? Was a procedure done?: No CP Differential Dx Differential Diagnosis: FL, PAC's Differential Diagnosis: HTN Essential, HTN Accelerated Differential Diagnosis: Gastritis, Myocardial Infarction, Pericarditis, Pneumonia X-Ray, Labs, Meds, VS Vital Signs Date Time Temp Pulse Resp B/P (MAP) Pulse Ox O2 Delivery O2 Flow Rate FiO2 05/11/24 10:16 47 05/11/24 10:08 49 05/11/24 09:28 97.8 46 18 175/74 (107) 98 97.8 05/11/24 09:17 50 Lab Test 05/11/24 11:07 05/11/24 10:04 05/11/24 10:01 Range/Units Troponin I High Sensitivity Pending 4 </=54 ng/L Sodium Level 142 136-145 mmol/L Potassium Level 4.2 3.5-5.1 mmol/L Chloride Level 111 H 98-107 mmol/L Carbon Dioxide Level 24 20-31 mmol/L Anion Gap 7 5-15 Blood Urea Nitrogen 10 9-23 mg/dL Creatinine 0.82 0.700-1.30 mg/dL Glomerular Filtration Rate Calc 92 >90 mL/min BUN/Creatinine Ratio 12.2 10.0-20.0 Serum Glucose 82 74-106 mg/dL Calcium Level 9.7 8.7-10.4 mg/dL White Blood Count 9.3 4.4-10.8 10^3/uL Red Blood Count 4.11 L 4.5-5.90 10^6/uL Hemoglobin 13.5 13.5-17.5 g/dL Hematocrit 40.5 L 41.0-53.0 % Mean Corpuscular Volume 98.7 80.0-100.0 fL Mean Corpuscular Hemoglobin 32.9 H 28.0-32.0 pg Mean Corpuscular Hemoglobin Concent 33.3 32.0-36.0 g/dL Red Cell Distribution Width 14.5 H 11.8-14.3 % Platelet Count 253 140-450 10^3/uL Mean Platelet Volume 6.8 L 6.9-10.8 fL Neutrophils (%) (Auto) 63.1 37.0-80.0 % Lymphocytes (%) (Auto) 22.3 10.0-50.0 % Monocytes (%) (Auto) 6.2 0.0-12.0 % Eosinophils (%) (Auto) 6.6 0.0-7.0 % Basophils (%) (Auto) 1.8 0.0-2.0 % Neutrophils # (Auto) 5.9 1.6-8.6 10 ^3/uL Lymphocytes # (Auto) 2.1 0.4-5.4 10 ^3/uL Monocytes # (Auto) 0.6 0-1.3 10 ^3/uL Eosinophils # (Auto) 0.6 0-0.8 10 ^3/uL Basophils # (Auto) 0.2 0-0.2 10 ^3/uL Nucleated Red Blood Cells 0.4 % [address] [address] Ph: [phone] DIAGNOSTIC IMAGING Diagnostic Imaging Report : [id number] Signed PATIENT: TIERA SALMERON ACCT: [id number] UNIT: [id number] : 1950 LOC: ER ROOM / BED: / AGE / SEX: 74 / M ADM STATUS: REG ER SERVICE 0935 ORDERING PHYSICIAN: ROULA FUNEZ MD PROCEDURE(s): CXRP - CHEST PORTABLE REASON: chest pain ORDER NUMBER(s): [id number], ACCESSION NUMBER(s): [id number] CHEST RADIOGRAPH Indication: chest pain Technique: Single frontal view of the chest was obtained Comparison: None FINDINGS: Lines and Tubes: None Lungs: No focal consolidation. Pleura: No effusion. No pneumothorax. Cardiomediastinal contours: Unremarkable Bones: No acute osseous abnormality. IMPRESSION: 1. No acute cardiopulmonary disease. ATED BY: WALTER MOODY MD DICTATED DATE/TIME: 05/11/24 1013 SIGNED BY: WALTER MOODY MD SIGNED DATE/TIME: 05/11/24 1013 CC: Time of 1ST Reevaluation: 09:50 Reevaluation 1ST: Unchanged Patient Education/Counseling: Diagnosis, Treatment, Prognosis Family Education/Counseling: No Family Present Additional Information The following tests were ordered, and results were reviewed by me: EKG-X3, BMP, CBC,TROP -x3, XY CHEST Additional Information was gathered from interviewing the following independent historians: EMS I reviewed and agreed with the following test results read by other providers: XY CHEST I discussed treatment and results with medical personnel and: Patient Comprehensive systems review obtained and negative except for what is stated in the HPI. Departure 1 Departure Time of Disposition: 11:39 (Patient presented with chest pain that was concerning for possible STEMI, ACS, PE, Pneumonia, Muscle Strain, COPD, Dissection. Data: 1. I ordered and reviewed the result of at least 3 labs including a CBC, BMP, and Troponin. 2. I independently interpreted the following tests: EKG which shows normal sinus rhythm and Chest X-ray which shows benign chest.Risk:This patient has a high risk of morbidity due to further diagnostic testing or treatment and may suffer from an acute cardiac or respiratory disorder. Workup reveals concern for ACS and patient should be admitted for further workup and possible expert consultation. ) Impression: Primary Impression: Acute chest pain Disposition: ADMITTED INPATIENT Admit to: Med Surg Condition: Serious Critical Care Note Critical Care Time?: Yes Critical care comment: Acute chest pain Authorized and Performed by: Roula Funez MD Total critical care time: Approximately 38 minutes Due to a high probability of clinically significant, life threatening deterioration, the patient required my highest level of preparedness to intervene emergently and I personally spent this critical care time directly and personally managing the patient. This critical care time included obtaining a history; examining the patient; pulse oximetry; ordering and review of studies; arranging urgent treatment with development of a management plan; evaluation of patient's response to treatment; frequent reassessment; and, discussions with other providers. This critical care time was performed to assess and manage the high probability of imminent, life-threatening deterioration that could result in multi-organ failure. It was exclusive of separately billable procedures and treating other patients and teaching time. Please see my other sections and the rest of the note for further information on patient assessment and treatment. Stability Stability form required: No Heart Score Heart Score: Heart Score Response (Comments) Value History Moderate Suspicious 1 EKG Repolarization Disturb 1 Age >65 2 Risk Factors 1 or 2 risk factors 1 Troponin Normal limit 0 Total 5 I personally scribed for ROULA FUNEZ MD ([email or web address]) on 05/11/24 at 09:30. Electronically submitted by Breanna Mcconnell ([email or web address]). I personally scribed for ROULA FUNEZ MD ([email or web address]) on 05/11/24 at 09:51. Electronically submitted by Breanna Mcconnell ([email or web address]). I personally scribed for ROULA FUNEZ MD ([email or web address]) on 05/11/24 at 09:58. Electronically submitted by Breanna Mcconnell ([email or web address]). I personally scribed for ROULA FUNEZ MD ([email or web address]) on 05/11/24 at 10:38. Electronically submitted by Breanna Mcconnell ([email or web address]). ROULA FUNEZ MD May 11, 2024 09:30
[2024-05-11 10:00] VITALS: PULSE 57; RESP 17; O2SAT 97
--- NOTE | 2024-05-11 10:15 | DVH ---
CHEST RADIOGRAPH Indication: chest pain Technique: Single frontal view of the chest was obtained Comparison: None FINDINGS: Lines and Tubes: None Lungs: No focal consolidation. Pleura: No effusion. No pneumothorax. Cardiomediastinal contours: Unremarkable Bones: No acute osseous abnormality. IMPRESSION: 1. No acute cardiopulmonary disease.
[2024-05-11 10:17] LABS: Basophils # (auto) 0.2 10 ^3/uL (0-0.2); Basophils % (auto) 1.8 % (0.0-2.0); Eosinophils # (auto) 0.6 10 ^3/uL (0-0.8); Eosinophils % (auto) 6.6 % (0.0-7.0); Hematocrit 40.5 % (41.0-53.0); Hemoglobin 13.5 g/dL (13.5-17.5); Lymphocytes # (auto) 2.1 10 ^3/uL (0.4-5.4); Lymphocytes % (auto) 22.3 % (10.0-50.0); Mean Corpuscular Hemoglobin 32.9 pg (28.0-32.0); Mean Corpuscular Hgb Conc. 33.3 g/dL (32.0-36.0); Mean Corpuscular Volume 98.7 fL (80.0-100.0); Monocytes # (auto) 0.6 10 ^3/uL (0-1.3); Monocytes % (auto) 6.2 % (0.0-12.0); Neutrophils # (auto) 5.9 10 ^3/uL (1.6-8.6); Neutrophils % (auto) 63.1 % (37.0-80.0); Nucleated Red Blood Cells % 0.4 %; Platelet Count (auto) 253 10^3/uL (140-450); Red Blood Cells 4.11 10^6/uL (4.5-5.90); Red Cell Distribution Width 14.5 % (11.8-14.3); White Blood Cell 9.3 10^3/uL (4.4-10.8)
[2024-05-11 10:43] LABS: Potassium 4.2 mmol/L (3.5-5.1); Sodium 142 mmol/L (136-145)
[2024-05-11 10:44] LABS: Anion Gap 7 (5-15); Calcium 9.7 mg/dL (8.7-10.4); Carbon Dioxide 24 mmol/L (20-31)
[2024-05-11 10:46] LABS: Chloride 111 mmol/L (98-107)
[2024-05-11 10:49] LABS: BUN/Creatinine Ratio 12.2 (10.0-20.0); Blood Urea Nitrogen 10 mg/dL (9-23); Glucose 82 mg/dL (74-106)
[2024-05-11 12:52] LABS: Urine Bacteria None Seen /hpf (None Seen)
[2024-05-11 13:03] LABS: Urine Blood Negative /uL (Negative); Urine Clarity Clear (Clear); Urine Color Light-Yellow (Yellow); Urine Protein, UAD Negative (Negative); Urine Specific Gravity 1.013 (1.001-1.035); Urine Squamous Epithelial Cell None Seen /hpf (<5); Urine Urobilinogen Normal (Negative); Urine WBC < 1 /HPF (0-3); Urine pH 6.5 (5.0-9.0)
[2024-05-11] MEDS: MORPHINE SULFATE 4 MG/ML SYR/VIAL IV ONE (14:05)
[2024-05-11] MEDS: ONDANSETRON HCL 4 MG/2 ML VIAL IV ONE (14:05)
[2024-05-11] MEDS ORDERED: ONDANSETRON HCL 4 MG/2 ML VIAL IV PRN (15:45)
[2024-05-11] MEDS ORDERED: MORPHINE SULFATE INJ 2 MG/ml SYRG IV PRN (15:45)
[2024-05-11] MEDS ORDERED: MORPHINE SULFATE 4 MG/ML SYR/VIAL IV PRN (15:45)
[2024-05-11] MEDS ORDERED: NITROGLYCERIN 0.4 MG SL TAB SL PRN ×2 (15:45)
--- NOTE | 2024-05-11 15:59 | DVHHP2 ---
History of Present Illness Reason for Visit: Chest pain History of Present Illness aJleel Pond is a 74-year-old male with past medical history hypertension, hyperlipidemia, CVA with left-sided weakness, vertigo, chronic back pain, chronic sinusitis, anemia, GERD, sleep apnea, appendectomy, right leg angioplasty in 2016, bunion surgery, and hammertoe repair surgery who presents to the ED with chest pain for 2 weeks. Patient reports that the pain is 2/10 in his midsternum radiates to the left side and left shoulder. Upon examination patient states that the pain is 0/10. Patient also reports productive phlegm and greenish in color. Patient denies any recent trauma or injury, fever or chills, lightheadedness, weakness, dizziness, abdominal pain, nausea, vomiting, diarrhea, or shortness of breath. Patient reports that his brother was recently sick with a cold and COVID. Patient also states that he ambulates with a cane. Patient states that he quit smoking, uses a nicotine patch or lozenges,,quit drinking, and does not use illicit drugs. 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 vertigo) GI: GERD Heme/Onc: Anemia NOS Past Medical History Chronic back pain Chronic sinusitis Past Surgical History: Appendectomy, Other (Right leg angioplasty in 2016, bunion surgery, and hammertoe repair surgery) Family History: Other (Mom with emphysema and dad with lupus) Smoke: Quit ALCOHOL: none (Quit) Drugs: None Lives: Alone Domestic Violence: Neg Review of Systems Cardiovascular: Chest Pain Allergies: Coded Allergies: Sulfamethoxazole w/Trimethoprim (Verified Allergy, Intermediate, 02/26/24) Medications Current Medications Medications Dose Ordered Sig/Georgie Route Start Time Stop Time Status Last Admin Dose Admin Aspirin 81 mg DAILY PO 05/12/24 10:00 UNV Atorvastatin Calcium 40 mg HS PO 05/11/24 22:00 UNV Morphine Sulfate 2 mg Q30MP PRN IV 05/11/24 15:45 UNV Acetaminophen 650 mg Q6HP PRN PO 05/11/24 15:45 UNV Nitroglycerin 0.4 mg Q5MINP PRN SL 05/11/24 15:45 UNV Ondansetron HCl 4 mg Q4HP PRN IV 05/11/24 15:45 UNV Nitroglycerin 0.4 mg Q5MINP PRN SL 05/11/24 15:45 UNV Morphine Sulfate 2 mg Q30M PRN IV 05/11/24 15:45 UNV Enoxaparin Sodium 30 mg DAILY SC 05/12/24 10:00 UNV Exam Vital Signs Vital Signs Date Time Temp Pulse Resp B/P (MAP) Pulse Ox O2 Delivery O2 Flow Rate FiO2 05/11/24 14:05 70 14 168/66 05/11/24 10:00 97 Room Air* 0 21 05/11/24 10:00 98.2 98.2 General Appearance: Alert, Oriented X3, Cooperative, No acute distress HEENT: Atraumatic, PERRLA, EOMI, Mucous membr. moist/pink Respiratory: Clear to auscultation, Normal air movement Cardiovascular: Normal S1, Normal S2, No murmurs Abdominal: Normal bowel sounds, Soft, No tenderness, No hepatospenomegaly, No masses Extremities: Normal pulses Neuro: Normal speech, Normal tone, Sensation intact Psych/Mental Status: Mental status NL, Mood NL Labs/Xrays Labs Test 05/11/24 13:24 05/11/24 12:47 05/11/24 10:04 05/11/24 10:01 Range/Units Troponin I High Sensitivity 5 </=54 ng/L Urine Color Light-yellow Yellow Urine Clarity Clear Clear Urine pH 6.5 5.0-9.0 Urine Specific [place] 1.013 1.001-1.035 Urine Protein Negative Negative Urine Ketones Negative Negative Urine Blood Negative Negative /uL Urine Nitrite Negative Negative Urine Bilirubin Negative Negative Urine Urobilinogen Normal Negative mg/dL Urine Leukocyte Esterase Negative Negative /uL Urine RBC None seen 0 - 3 /hpf Urine Microscopic WBC < 1 0-3 /HPF Urine Squamous Epithelial Cells None seen <5 /hpf Urine Bacteria None seen None Seen /hpf Urine Glucose Normal Normal mg/dL Sodium Level 142 136-145 mmol/L Potassium Level 4.2 3.5-5.1 mmol/L Chloride Level 111 H 98-107 mmol/L Carbon Dioxide Level 24 20-31 mmol/L Anion Gap 7 5-15 Blood Urea Nitrogen 10 9-23 mg/dL Creatinine 0.82 0.700-1.30 mg/dL Glomerular Filtration Rate Calc 92 >90 mL/min BUN/Creatinine Ratio 12.2 10.0-20.0 Serum Glucose 82 74-106 mg/dL Calcium Level 9.7 8.7-10.4 mg/dL White Blood Count 9.3 4.4-10.8 10^3/uL Red Blood Count 4.11 L 4.5-5.90 10^6/uL Hemoglobin 13.5 13.5-17.5 g/dL Hematocrit 40.5 L 41.0-53.0 % Mean Corpuscular Volume 98.7 80.0-100.0 fL Mean Corpuscular Hemoglobin 32.9 H 28.0-32.0 pg Mean Corpuscular Hemoglobin Concent 33.3 32.0-36.0 g/dL Red Cell Distribution Width 14.5 H 11.8-14.3 % Platelet Count 253 140-450 10^3/uL Mean Platelet Volume 6.8 L 6.9-10.8 fL Neutrophils (%) (Auto) 63.1 37.0-80.0 % Lymphocytes (%) (Auto) 22.3 10.0-50.0 % Monocytes (%) (Auto) 6.2 0.0-12.0 % Eosinophils (%) (Auto) 6.6 0.0-7.0 % Basophils (%) (Auto) 1.8 0.0-2.0 % Neutrophils # (Auto) 5.9 1.6-8.6 10 ^3/uL Lymphocytes # (Auto) 2.1 0.4-5.4 10 ^3/uL Monocytes # (Auto) 0.6 0-1.3 10 ^3/uL Eosinophils # (Auto) 0.6 0-0.8 10 ^3/uL Basophils # (Auto) 0.2 0-0.2 10 ^3/uL Nucleated Red Blood Cells 0.4 % CHEST RADIOGRAPH Indication: chest pain Technique: Single frontal view of the chest was obtained Comparison: None FINDINGS: Lines and Tubes: None Lungs: No focal consolidation. Pleura: No effusion. No pneumothorax. Cardiomediastinal contours: Unremarkable Bones: No acute osseous abnormality. IMPRESSION: 1. No acute cardiopulmonary disease. Assessment/Plan Assessment/Plan Assessment Chest pain Sinus bradycardia ?Pneumonia Rule out influenza Rule out COVID Ex tobacco use History of hypertension History of hyperlipidemia History of CVA with left-sided deficits History of vertigo History of chronic back pain History of chronic sinusitis History of anemia History of GERD History of appendectomy History of right leg angioplasty in 2016 History of bunion surgery History of hammertoe repair fracture Plan Admit to tele Chest x-ray noted IV antibiotics-ceftriaxone Influenza test COVID test Antiemetics Pain management Troponin negative x3 EKG IV antibiotics-ceftriaxone Mag level Lipid panel UDS A1c Echo ordered DVT prophylaxis-Lovenox PUD prophylaxis-Protonix Home medications reconciled Discussed plan of care with patient and nurse Counseled patient on continuous of cessation of tobacco use Nicotine patch ordered Plan discussed with: Patient My Orders Orders - 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 Procedure Category Date Status Time Admit ADMIT 05/11/24 Transmitted 15:45 Code Status CODE 05/11/24 Transmitted 15:45 Vital Signs LILIAN 05/11/24 Transmitted 15:45 Manager Of Procurement LILIAN 05/11/24 Transmitted 15:45 Cardiac DIET 05/11/24 Transmitted Diet-2gna,Lofat,Lochol Dinner Aspirin Tablet PHA 05/12/24 Logged 10:00 Atorvastatin (Lipitor) PHA 05/11/24 Logged 22:00 Morphine Sulfate PHA 05/11/24 Logged Injection 15:45 Acetaminophen Tablet PHA 05/11/24 Logged (Tylenol Tablet) 15:45 Complete Blood Count LAB 05/11/24 Transmitted 04:00 Basic Metabolic Panel LAB 05/12/24 Verified 04:00 Magnesium LAB 05/12/24 Verified 04:00 Lipid Panel LAB 05/12/24 Verified 04:00 Echo 2d Mode Cardiac US 05/11/24 Logged DOP 15:45 Nitroglycerin PHA 05/11/24 Logged Sublingual (Ntrostat 15:45 Ondansetron Hcl PHA 05/11/24 Logged (Zofran) 15:45 Electrocardigram EKG 05/12/24 Logged 04:00 Troponin-I Hs LAB 05/11/24 Transmitted 15:45 Cardiac LILIAN 05/11/24 Transmitted Rehabilitation - Outpa Nitroglycerin PHA 05/11/24 Logged Sublingual (Ntrostat 15:45 Morphine Sulfate PHA 05/11/24 Logged Injection 15:45 Stat Ekg For Chest LILIAN 05/11/24 Transmitted Pain 15:45 Notify Md Of Changes [facility] 05/11/24 Transmitted From Base 15:45 Truck Mechanic For LILIAN 05/11/24 Transmitted 24 Hours 15:45 Emergency Dysrhythmia LILIAN 05/11/24 Transmitted Protocol 15:45 Rhythm Strips Once LILIAN 05/11/24 Transmitted Every Shift 15:45 Oxygen By Nasal RT 05/11/24 Transmitted Cannula 15:45 Enoxaparin Sodium PHA 05/12/24 Logged (Lovenox) 10:00 Drug Screen LAB 05/11/24 Transmitted 15:45 Date of Service: May 11, 2024 Billing Provider: OZZY HOWELL Common Visit Codes: [id number] INP/OBS CARE (HIGH) OZZY HOWELL May 11, 2024 15:58
[2024-05-11 16:26] LABS: Basophils # (auto) 0 10 ^3/uL (0-0.2); Basophils % (auto) 0.5 % (0.0-2.0); Eosinophils # (auto) 0.5 10 ^3/uL (0-0.8); Eosinophils % (auto) 5.7 % (0.0-7.0); Hematocrit 38.4 % (41.0-53.0); Hemoglobin 12.9 g/dL (13.5-17.5); Lymphocytes # (auto) 2.4 10 ^3/uL (0.4-5.4); Lymphocytes % (auto) 27.5 % (10.0-50.0); Mean Corpuscular Hemoglobin 32.4 pg (28.0-32.0); Mean Corpuscular Hgb Conc. 33.5 g/dL (32.0-36.0); Mean Corpuscular Volume 96.7 fL (80.0-100.0); Monocytes # (auto) 0.7 10 ^3/uL (0-1.3); Neutrophils % (auto) 58.3 % (37.0-80.0); Nucleated Red Blood Cells % 0.1 %; Platelet Count (auto) 257 10^3/uL (140-450); Red Blood Cells 3.97 10^6/uL (4.5-5.90); Red Cell Distribution Width 14.8 % (11.8-14.3); White Blood Cell 8.6 10^3/uL (4.4-10.8)
[2024-05-11 16:58] VITALS: BP 148/74; PULSE 54; RESP 18; TEMP 98.1; O2SAT 94
[2024-05-11] MEDS ORDERED: MECL-126 PO (17:26)
[2024-05-11 17:28] LABS: Amphetamine Screen, Urine Neg (NEGATIVE); Barbiturate Scree,Urine Neg (NEGATIVE); Benzodiazephine Screen, Urine Neg (NEGATIVE); Cannabinoid Screen, Urine Neg (NEGATIVE); Cocaine Screen, Urine Neg (NEGATIVE); Opiate Scree,Urine Neg (NEGATIVE); Phencyclidine Screen, Urine Neg (NEGATIVE)
[2024-05-11] MEDS: PANTOPRAZOLE 40 MG/10 ML VIAL INJ IV SCH (17:55)
[2024-05-11] MEDS: NICOTINE 7MG/24HR TOPICAL PATCH TD SCH (17:56)
--- NOTE | 2024-05-11 18:55 | ECG ---
[facility] Test Date: 2024-05-11 Test Time: 10:16:54 Pat Name: TIERA SALMERON Department: ED Room: 0286T A Gender: M Adult Crossing Guard: chaya : 1950 Requested By: EMERGENCY EMERGENCY Order Number: [id number] Reading MD: Jose Jiménez Measurements Intervals [place] Rate: 47 P: 76 FL: 123 QRS: 92 QRSD: 126 T: 70 QT: 451 QTc: 399 Interpretive Statements Sinus bradycardia Right bundle branch block ST elevation, consider inferior injury Baseline wander in lead(s) V1 Electronically Signed On 05-12-2024 18:45:32 PDT by Jose Jiménez Please click the below link to view image of tracing.
--- NOTE | 2024-05-11 18:55 | ECG ---
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
--- NOTE | 2024-05-11 18:57 | ECG ---
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
[2024-05-11 19:15] LABS: COVID19 ANTIGEN SOFIA FIA NEGATIVE (NEGATIVE); Rapid Influenza A Negative (Negative); Rapid Influenza B Negative (Negative)
[2024-05-11 20:00] VITALS: PULSE 50
[2024-05-11 21:00] VITALS: BP 110/55; PULSE 55; TEMP 97.9; O2SAT 94
[2024-05-11] MEDS: HYDROcodone-ACET 5/325MG TAB PO PRN (21:20)
[2024-05-11] MEDS: ATORVASTATIN 20 MG TAB PO SCH (21:20)
[2024-05-11 22:13] VITALS: PULSE 51; RESP 18; O2SAT 93
[2024-05-11] MEDS: BUDESONIDE (INHALATION) 0.5 MG/2 ML NEB NEB SCH (22:15)
[2024-05-11] MEDS: ALBUTEROL SULF 2.5 MG/0.5ML(0.5%) NEB SOLN NEB PRN (22:16)
[2024-05-11] MEDS: IPRATROPIUM BROM 0.5 MG/2.5ML INH SOL NEB PRN (22:16)
[2024-05-11 22:20] VITALS: PULSE 55; RESP 18; O2SAT 100
[2024-05-12] VITALS (15 sets, daily range): BP systolic 101–126; BP diastolic 53–66; PULSE 44–70; RESP 15–18; TEMP 97.4–98.3; O2SAT 93–100
[2024-05-12 06:35] LABS: Anion Gap 6 (5-15); Calcium 9.4 mg/dL (8.7-10.4); Carbon Dioxide 28 mmol/L (20-31); Potassium 4.3 mmol/L (3.5-5.1); Sodium 142 mmol/L (136-145)
[2024-05-12 06:38] LABS: Chloride 108 mmol/L (98-107)
[2024-05-12 06:41] LABS: BUN/Creatinine Ratio 17.2 (10.0-20.0); Blood Urea Nitrogen 15 mg/dL (9-23); Glucose 81 mg/dL (74-106)
[2024-05-12 06:42] LABS: Cholesterol 87 mg/dL (< 200); LDL Cholesterol 31 mg/dL (< 100); Triglycerides 26 mg/dL (< 150)
[2024-05-12 06:43] LABS: HDL Cholesterol 42 mg/dL (40-59)
[2024-05-12] MEDS: ENOXAPARIN SOD 40 MG/0.4 ML SYRINGE SC SCH (09:12)
[2024-05-12] MEDS: FERROUS SULFATE 325mg EC TAB PO SCH (09:13)
[2024-05-12] MEDS: CLOPIDOGREL BISULFATE 75 MG TAB PO SCH (09:13)
[2024-05-12] MEDS: LISINOPRIL 20 MG TAB PO SCH (09:14)
[2024-05-12] MEDS: ASPirin 81 mg TAB PO SCH (09:14)
[2024-05-12] MEDS ORDERED: PATIENTS OWN MEDICATION (Atorvastatin Calcium 1 TAB) PO SCH (10:00)
--- NOTE | 2024-05-12 18:05 | DVHPN2 ---
Subjective I am assuming the care of the patient from today onwards. Patient's heart rate is running between 40-45. Patient is currently not on any beta myrna. 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 Medications Current Medications Medications Dose Ordered Sig/Georgie Route Start Time Stop Time Status Last Admin Dose Admin Aspirin 81 mg DAILY PO 05/12/24 10:00 05/12/24 09:14 81 MG Atorvastatin Calcium 40 mg HS PO 05/11/24 22:00 05/11/24 21:20 40 MG Acetaminophen 650 mg Q6HP PRN PO 05/11/24 15:45 Ondansetron HCl 4 mg Q4HP PRN IV 05/11/24 15:45 Nitroglycerin 0.4 mg Q5MINP PRN SL 05/11/24 15:45 Morphine Sulfate 2 mg Q30M PRN IV 05/11/24 15:45 Enoxaparin Sodium 40 mg DAILY SC 05/12/24 10:00 05/12/24 09:12 40 MG Pantoprazole Sodium 40 mg DAILY IV 05/11/24 17:30 05/12/24 09:12 40 MG Nicotine 1 patch DAILY@1800 TD 05/11/24 18:00 05/12/24 17:50 1 PATCH Clopidogrel Bisulfate 75 mg DAILY PO 05/12/24 10:00 05/12/24 09:13 75 MG Ferrous Sulfate 325 mg DAILY PO 05/12/24 10:00 05/12/24 09:13 325 MG Lisinopril 40 mg DAILY PO 05/12/24 10:00 05/12/24 09:14 40 MG Budesonide 0.5 mg BID NEB 05/11/24 22:00 05/12/24 08:17 0.5 MG Albuterol 2.5 mg Q4HPRN PRN NEB 05/11/24 17:30 05/12/24 08:15 2.5 MG Ipratropium [place] 0.5 mg Q4HPRN PRN NEB 05/11/24 17:30 05/12/24 08:15 0.5 MG Acetaminophen/ Hydrocodone Bitart 1 tab Q6HPRN PRN PO 05/11/24 20:45 05/12/24 16:24 1 TAB Laboratory Results Laboratory Tests 05/11/24 16:10 05/12/24 04:45 Chemistry Test 05/12/24 04:45 Calcium Level 9.4 mg/dL (8.7-10.4) Magnesium Level 2.0 mg/dL (1.6-2.6) Lipid panel Test 05/12/24 04:45 Cholesterol Level 87 mg/dL (< 200) HDL Cholesterol 42 mg/dL (40-59) Triglycerides Level 26 mg/dL (< 150) Urinalysis Test 05/11/24 12:47 Urine Color Light-yellow (Yellow) Urine Clarity Clear (Clear) Urine pH 6.5 (5.0-9.0) Urine Specific [place] 1.013 (1.001-1.035) Urine Protein Negative (Negative) Urine Ketones Negative (Negative) Urine Blood Negative /uL (Negative) Urine Nitrite Negative (Negative) Urine Bilirubin Negative (Negative) Urine Urobilinogen Normal mg/dL (Negative) Urine Leukocyte Esterase Negative /uL (Negative) Urine RBC None seen /hpf (0 - 3) Urine Microscopic WBC < 1 /HPF (0-3) Urine Squamous Epithelial Cells None seen /hpf (<5) Urine Bacteria None seen /hpf (None Seen) Urine Glucose Normal mg/dL (Normal) Assessment/Plan Assessment/Plan 74-year-old male with a known history of hypertension, dyslipidemia, 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 Chest pain ruled out [place] was negative troponins 2. Bradycardia 3. Hypertension 4. Dyslipidemia 5. History of CVA with mild residual left-sided deficit 6. Chronic back pain 7. GERD -avoid AV hilda agents, continue current management, 2D echo and cardiology consultation Plan discussed with: Patient Date of Service: May 12, 2024 Billing Provider: ROWAN DAVALOS MD Common Visit Codes: [id number] INP/OBS CARE(MOD) ROWAN DAVALOS MD May 12, 2024 18:05
[2024-05-12] MEDS: ACETAMINOPHEN 325 MG TAB PO PRN (20:00)
[2024-05-13] VITALS (13 sets, daily range): BP systolic 111–144; BP diastolic 57–80; PULSE 45–113; RESP 16–19; TEMP 97.4–98.4; O2SAT 94–100
--- NOTE | 2024-05-13 14:34 | DVHPN2 ---
Subjective I am assuming the care of the patient from today onwards. Patient's heart rate is running between 40-45. Patient is currently not on any beta myrna. 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 Medications Current Medications Medications Dose Ordered Sig/Georgie Route Start Time Stop Time Status Last Admin Dose Admin Aspirin 81 mg DAILY PO 05/12/24 10:00 05/13/24 09:39 81 MG Atorvastatin Calcium 40 mg HS PO 05/11/24 22:00 05/12/24 21:39 40 MG Acetaminophen 650 mg Q6HP PRN PO 05/11/24 15:45 05/12/24 20:00 650 MG Ondansetron HCl 4 mg Q4HP PRN IV 05/11/24 15:45 Nitroglycerin 0.4 mg Q5MINP PRN SL 05/11/24 15:45 Morphine Sulfate 2 mg Q30M PRN IV 05/11/24 15:45 Enoxaparin Sodium 40 mg DAILY SC 05/12/24 10:00 05/13/24 09:39 40 MG Pantoprazole Sodium 40 mg DAILY IV 05/11/24 17:30 05/13/24 09:38 40 MG Nicotine 1 patch DAILY@1800 TD 05/11/24 18:00 05/12/24 17:50 1 PATCH Clopidogrel Bisulfate 75 mg DAILY PO 05/12/24 10:00 05/13/24 09:39 75 MG Ferrous Sulfate 325 mg DAILY PO 05/12/24 10:00 05/13/24 09:39 325 MG Lisinopril 40 mg DAILY PO 05/12/24 10:00 05/13/24 09:40 40 MG Budesonide 0.5 mg BID NEB 05/11/24 22:00 05/13/24 10:59 0.5 MG Albuterol 2.5 mg Q4HPRN PRN NEB 05/11/24 17:30 05/12/24 08:15 2.5 MG Ipratropium [place] 0.5 mg Q4HPRN PRN NEB 05/11/24 17:30 05/12/24 08:15 0.5 MG Acetaminophen/ Hydrocodone Bitart 1 tab Q6HPRN PRN PO 05/11/24 20:45 05/13/24 08:26 1 TAB Laboratory Results Laboratory Tests 05/11/24 16:10 05/12/24 04:45 Urinalysis Test 05/11/24 12:47 Urine Color Light-yellow (Yellow) Urine Clarity Clear (Clear) Urine pH 6.5 (5.0-9.0) Urine Specific [place] 1.013 (1.001-1.035) Urine Protein Negative (Negative) Urine Ketones Negative (Negative) Urine Blood Negative /uL (Negative) Urine Nitrite Negative (Negative) Urine Bilirubin Negative (Negative) Urine Urobilinogen Normal mg/dL (Negative) Urine Leukocyte Esterase Negative /uL (Negative) Urine RBC None seen /hpf (0 - 3) Urine Microscopic WBC < 1 /HPF (0-3) Urine Squamous Epithelial Cells None seen /hpf (<5) Urine Bacteria None seen /hpf (None Seen) Urine Glucose Normal mg/dL (Normal) Assessment/Plan Assessment/Plan 74-year-old male with a known history of hypertension, dyslipidemia, 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 Chest pain ruled out [place] was negative troponins 2. Bradycardia 3. Hypertension 4. Dyslipidemia 5. History of CVA with mild residual left-sided deficit 6. Chronic back pain 7. GERD -avoid AV hilda agents, continue current management, 2D echo and cardiology consultation Plan discussed with: Patient My Orders Orders - ROWAN DAVALOS MD Procedure Category Date Status Time * Cardiology Consult CONS 05/13/24 Transmitted 14:13 Date of Service: May 13, 2024 Billing Provider: ROWAN DAVALOS MD Common Visit Codes: [id number] INP/OBS CARE(MOD) ROWAN DAVALOS MD May 13, 2024 14:34
--- NOTE | 2024-05-13 15:34 | DVHSR ---
APPROVED REPORT EXAM: Two-dimensional and M-mode echocardiogram with Doppler and color Doppler. Blood Pressure: 101/53 mmHg INDICATION Chest Pain RISK FACTORS Height: 5'8", Weight: 134 DIMENSIONS LVDd4.6 (3.8-5.7cm)LA (2D)3.4 (1.9-4.0cm)Aortic Root3.2 (2.0-3.7cm) LVDs2.6 (2.5-4.0cm)LA (MM) (1.9-4.0cm)Aortic Cusp Exc1.6 (1.5-2.0cm) EF (%) 73.0 (55-70%)Rt. Atrium4.1 (1.9-4.0cm)Asc. Aorta cm IVSd0.8 (0.7-1.1cm)RV (D)4.0 (1.8-2.4cm) PWd1.1 (0.7-1.1cm) Mitral Valve MitralMitral Stenosis E wave0.97m/sMV Mean GR.mmHg A wave1.07m/sMV Peak GR.mmHg E/A ratio0.92D MVAcm2 DECEL [id number] 1/2 Timems Aortic Valve Aortic ValveAortic Stenosis V11.30m/Angela Mean GR.8mmHg V21.98m/Angela Peak GR.16mmHg LVOT Diameter1.9 (1.8-2.4cm)Doppler AVA1.86cm2 Pulmonic Valve V20.88m/s Tricuspid Valve TR Velocity2.66m/s [id number] Other Information Quality : Technically LimitedRhythm : Technically limited study due to body habitus. Conclusion Sinus rhythm. Right atrial and right ventricular enlargement. Mild LVH. Mild aortic sclerosis. Mild thickening of the lateral annulus of the tricuspid valve. EF of 55-60% with normal RV function. Mild TR. No pericardial effusion masses or vegetations.
[2024-05-13] MEDS: MELATONIN 5 MG TAB PO ONE (21:53)
[2024-05-13] MEDS: CYCLOBENZAPRINE HCL 10 MG TAB PO ONE (21:53)
[2024-05-14] VITALS (10 sets, daily range): BP systolic 91–126; BP diastolic 58–72; PULSE 51–72; RESP 16–18; TEMP 97.3–98.2; O2SAT 93–100
--- NOTE | 2024-05-14 14:47 | DVHDS2 ---
Discharge Summary Date of Admission May 11, 2024 at 15:45 Date of Discharge: May 14, 2024 Labs/Diagnostic Data: Laboratory Results Test 05/12/24 04:45 05/11/24 18:23 05/11/24 16:10 05/11/24 12:47 Sodium Level 142 mmol/L (136-145) Potassium Level 4.3 mmol/L (3.5-5.1) Chloride Level 108 mmol/L (98-107) Carbon Dioxide Level 28 mmol/L (20-31) Anion Gap 6 (5-15) Blood Urea Nitrogen 15 mg/dL (9-23) Creatinine 0.87 mg/dL (0.700-1.30) Glomerular Filtration Rate Calc 91 mL/min (>90) BUN/Creatinine Ratio 17.2 (10.0-20.0) Serum Glucose 81 mg/dL (74-106) Calcium Level 9.4 mg/dL (8.7-10.4) Magnesium Level 2.0 mg/dL (1.6-2.6) Triglycerides Level 26 mg/dL (< 150) Cholesterol Level 87 mg/dL (< 200) LDL Cholesterol 31 mg/dL (< 100) HDL Cholesterol 42 mg/dL (40-59) Influenza Type A Antigen Negative (Negative) Influenza Type B Antigen Negative (Negative) SARS-CoV-2 Antigen (Rapid) Negative (NEGATIVE) White Blood Count 8.6 10^3/uL (4.4-10.8) Red Blood Count 3.97 10^6/uL (4.5-5.90) Hemoglobin 12.9 g/dL (13.5-17.5) Hematocrit 38.4 % (41.0-53.0) Mean Corpuscular Volume 96.7 fL (80.0-100.0) Mean Corpuscular Hemoglobin 32.4 pg (28.0-32.0) Mean Corpuscular Hemoglobin Concent 33.5 g/dL (32.0-36.0) Red Cell Distribution Width 14.8 % (11.8-14.3) Platelet Count 257 10^3/uL (140-450) Mean Platelet Volume 6.9 fL (6.9-10.8) Neutrophils (%) (Auto) 58.3 % (37.0-80.0) Lymphocytes (%) (Auto) 27.5 % (10.0-50.0) Monocytes (%) (Auto) 8.0 % (0.0-12.0) Eosinophils (%) (Auto) 5.7 % (0.0-7.0) Basophils (%) (Auto) 0.5 % (0.0-2.0) Neutrophils # (Auto) 5.0 10 ^3/uL (1.6-8.6) Lymphocytes # (Auto) 2.4 10 ^3/uL (0.4-5.4) Monocytes # (Auto) 0.7 10 ^3/uL (0-1.3) Eosinophils # (Auto) 0.5 10 ^3/uL (0-0.8) Basophils # (Auto) 0 10 ^3/uL (0-0.2) Nucleated Red Blood Cells 0.1 % Troponin I High Sensitivity 5 ng/L (</=54) Urine Color Light-yellow (Yellow) Urine Clarity Clear (Clear) Urine pH 6.5 (5.0-9.0) Urine Specific [place] 1.013 (1.001-1.035) Urine Protein Negative (Negative) Urine Ketones Negative (Negative) Urine Blood Negative /uL (Negative) Urine Nitrite Negative (Negative) Urine Bilirubin Negative (Negative) Urine Urobilinogen Normal mg/dL (Negative) Urine Leukocyte Esterase Negative /uL (Negative) Urine RBC None seen /hpf (0 - 3) Urine Microscopic WBC < 1 /HPF (0-3) Urine Squamous Epithelial Cells None seen /hpf (<5) Urine Bacteria None seen /hpf (None Seen) Urine Glucose Normal mg/dL (Normal) Urine Opiates Screen Neg (NEGATIVE) Urine Fentanyl Screen Neg (NEGATIVE) Urine Barbiturates Screen Neg (NEGATIVE) Urine Phencyclidine Screen Neg (NEGATIVE) Urine Amphetamines Screen Neg (NEGATIVE) Urine Benzodiazepines Screen Neg (NEGATIVE) Urine Cocaine Screen Neg (NEGATIVE) Urine Cannabinoids Screen Neg (NEGATIVE) Test 05/11/24 10:01 Hemoglobin A1c 5.1 % A1C (<5.7) Other Laboratory Tests 05/12/24 04:45 05/11/24 16:10 Brief Hx & Hospital Course: 74-year-old male with a known history of hypertension, dyslipidemia, 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 Patient's has a bradycardia into 40s to 45. 2D echo was done which shows normal EF. Cardiology evaluated the patient and cleared the patient to be discharged. Patient denies any use of beta blockers or AV hilda agents at home. 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 Chest pain ruled out [place] was negative troponins 2. Bradycardia resolved 3. Hypertension 4. Dyslipidemia 5. History of CVA with mild residual left-sided deficit 6. Chronic back pain 7. GERD Discharge Disposition: Home SNF Discharge Will this Physician continue t: No Discharge Instruct/Medications Diet: Cardiac 2g Na,low cholest Activity: No Restrictions, As Tolerated Follow Up/Referral: Follow up with the PCP in one week Follow up with the Cardiology in 1-2 weeks Medications: Resume home medications Discharge Statement: "Patient was advised to return to the ER or call 911 if any headaches, dizziness, shortness of breath, chest pain, abdominal pain, bleeding, fevers, or worsening of medical condition. Patient was counseled about treatment plan, medications, possible side effects, patientverbalized understanding. All questions were answered to the best of my ability. 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 Chest pain ruled out MS was negative troponins 2. Bradycardia resolved 3. Hypertension 4. Dyslipidemia 5. History of CVA with mild residual left-sided deficit 6. Chronic back pain 7. GERD Date of Service: May 14, 2024 Billing Provider: ROAWN DAVALOS MD Common Visit Codes: [id number] DISCH DAY >30min ROWAN DAVALOS MD May 14, 2024 14:47
--- NOTE | 2024-05-14 15:47 | DVHINCON2 ---
Date Seen: May 14, 2024 Referring Physician Anna Reason for Consultation Chest Pain History of Present Illness 74-year-old male with PMH for HTN, HLD, CVA with left-sided deficits, vertigo, chronic back pain, sleep apnea, PAD fem-pop bypass right lower extremity, left superior frontal cerebral meningioma presented to the hospital with chest pain. Patient states chest pain retrosternal, mild sharp intermittent in nature, radiating to left chest area, worsens with cough associated with shortness of breath. Patient states he has been having symptoms of upper URI with some congestion and sputum production. Denies fevers chills. Patient does endorse he has also been having episodes of dizziness for which he was recently following up when [facility] and found to have a meningioma. [facility] Troponins trending negative x4. CXR unremarkable. EKG reviewed and shows sinus bradycardia at 48 beats per minute, RBBB. No acute ST and T-wave abnormality. Past Medical History As stated above. Past Surgical History Right lower extremity fem-pop bypass Family History: Patient reports no known family medical history. Family History Denies pertinent family cardiac history Social History Denies active tobacco, alcohol, or illicit drug use. Allergies: Coded Allergies: Sulfamethoxazole w/Trimethoprim (Verified Allergy, Intermediate, 02/26/24) Home Meds Active Scripts Budesonide-Formoterol Fumarate (Budesonide/Formoterol Fum 160-4.5 Mcg/Act) 1 Aer Aer, 1 AER IN BID for 30 Days, #1 AER Prov:CAYETANOGLORIA RESIDENT 02/28/24 Albuterol Sulfate (VENTOLIN MDI) 90 Mcg Ih, 90 MCG IN DAILYP PRN for 30 Days, #1 INH Prov:[facility] 02/28/24 Pantoprazole Sodium Sesquihydr (Protonix) 40 Mg Tab, 40 MG PO DAILY for 30 Days, #30 TAB Prov:[facility] 02/27/24 Prednisone (Prednisone) 20 Mg Tab, 40 MG PO DAILY for 5 Days, #5 MG Prov:[facility] 02/27/24 Azithromycin (Azithromycin) 500 Mg Tab, 1 TAB PO DAILY for 4 Days, #4 TAB Prov:[facility]HE[facility]AL [facility] 02/27/24 Atorvastatin Calcium (ATORVASTATIN CALCIUM) 40 Mg Tab, 1 TAB PO DAILY for 30 Days, #30 TAB 5 Refills Prov:GLORIA MAS RESIDENT 02/27/24 Reported Medications Meclizine HCl (Meclizine Hydrochloride) 25 Mg Tab, 1 TAB PO TID PRN 05/11/24 Clopidogrel Bisulfate (CLOPIDOGREL) 75 Mg Tab, 75 MG PO DAILY for 30 Days, MG 02/26/24 Ferrous Sulfate (Ferrous Sulfate) 325 Mg Tab, 325 MG PO DAILY for 30 Days, MG 02/26/24 Lisinopril (Lisinopril) 40 Mg Tab, 40 MG PO DAILY for 30 Days, MG 02/26/24 Hydrocodone-Acetaminophen (Hydrocodone Bitartrate/AC 7.5-325 mg) 1 Tab Tab, 1 TAB PO Q12HP PRN for PAIN SCALE 1 THRU 6, TAB 02/26/24 Cyclobenzaprine Hcl (Cyclobenzaprine Hcl) 10 Mg Tab, 10 MG PO Q12HP PRN for FOR MUSCLE SPASM for 30 Days, MG 02/26/24 Review of Systems Constitutional: No: Fever, Chills, Sweats, Weakness, Malaise, Other Eyes: No: Pain, Vision change, Conjunctivae inflammation, Eyelid inflammation, Other, Redness ENT: No: Ear pain, Ear discharge, Nose pain, Nose discharge, Nose congestion, Mouth pain, Mouth swelling, Throat pain, Throat swelling, Other Respiratory: No: Cough, Dry, Shortness of breath, SOB with exertion, Wheezing, Hemoptysis, Pleuritic Pain, Sputum, Wheezing, Other Cardiovascular: ; No: Chest Pain Palpitations, Orthopnea, Paroxysmal Noc. Dyspnea, Edema, Lt Headedness, Other Gastrointestinal: No: Nausea, Vomiting, Abdominal Pain, Diarrhea, Constipation, Melena, Hematochezia, Other Genitourinary: No Dysuria, No Frequency, No Incontinence, No Hematuria, No Retention, No Other Musculoskeletal: neck pain; No: other, shoulder pain, arm pain, back pain, hand pain, leg pain, foot pain Skin: No: Rash, Lesions, Jaundice, Bruising, Other Neurological: Other (Dizziness, headache.); No: Weakness, Numbness, Incoordination, Change in speech, Confusion, Seizures Vital Signs Vital Signs Date Time Temp Pulse Resp B/P (MAP) Pulse Ox O2 Delivery O2 Flow Rate FiO2 05/14/24 13:03 98.2 63 17 119/66 (83) 97 98.2 05/14/24 10:00 Room Air 0.0 05/14/24 10:00 21 Physical Exam General appearance: Patient is well-developed, well-nourished, in no acute distress. HEENT: Exam shows: Normocephalic, atraumatic, PERRLA, EOMI Neck: Supple, no bruits Chest: Equal chest excursion bilaterally. Breath sounds normal-no rales or wheezes. Heart: Rhythm: Bradycardia; no murmur or gallop Abdomen: Exam shows: Soft, nontender, nondistended Musculoskeletal: No clubbing, no cyanosis, no lower extremity edema Dermatology: Skin warm, moist. Neurological: Exam shows: Alert and oriented x4, normal speech Available prior records, labs, EKG, rhythm strips reviewed and interpreted Labs/Diagnostic Data Labs Test 05/12/24 04:45 05/11/24 18:23 05/11/24 16:10 05/11/24 12:47 Range/Units Sodium Level 142 136-145 mmol/L Potassium Level 4.3 3.5-5.1 mmol/L Chloride Level 108 H 98-107 mmol/L Carbon Dioxide Level 28 20-31 mmol/L Anion Gap 6 5-15 Blood Urea Nitrogen 15 9-23 mg/dL Creatinine 0.87 0.700-1.30 mg/dL Glomerular Filtration Rate Calc 91 >90 mL/min BUN/Creatinine Ratio 17.2 10.0-20.0 Serum Glucose 81 74-106 mg/dL Calcium Level 9.4 8.7-10.4 mg/dL Magnesium Level 2.0 1.6-2.6 mg/dL Triglycerides Level 26 < 150 mg/dL Cholesterol Level 87 < 200 mg/dL LDL Cholesterol 31 < 100 mg/dL HDL Cholesterol 42 40-59 mg/dL Influenza Type A Antigen Negative Negative Influenza Type B Antigen Negative Negative SARS-CoV-2 Antigen (Rapid) Negative NEGATIVE White Blood Count 8.6 4.4-10.8 10^3/uL Red Blood Count 3.97 L 4.5-5.90 10^6/uL Hemoglobin 12.9 L 13.5-17.5 g/dL Hematocrit 38.4 L 41.0-53.0 % Mean Corpuscular Volume 96.7 80.0-100.0 fL Mean Corpuscular Hemoglobin 32.4 H 28.0-32.0 pg Mean Corpuscular Hemoglobin Concent 33.5 32.0-36.0 g/dL Red Cell Distribution Width 14.8 H 11.8-14.3 % Platelet Count 257 140-450 10^3/uL Mean Platelet Volume 6.9 6.9-10.8 fL Neutrophils (%) (Auto) 58.3 37.0-80.0 % Lymphocytes (%) (Auto) 27.5 10.0-50.0 % Monocytes (%) (Auto) 8.0 0.0-12.0 % Eosinophils (%) (Auto) 5.7 0.0-7.0 % Basophils (%) (Auto) 0.5 0.0-2.0 % Neutrophils # (Auto) 5.0 1.6-8.6 10 ^3/uL Lymphocytes # (Auto) 2.4 0.4-5.4 10 ^3/uL Monocytes # (Auto) 0.7 0-1.3 10 ^3/uL Eosinophils # (Auto) 0.5 0-0.8 10 ^3/uL Basophils # (Auto) 0 0-0.2 10 ^3/uL Nucleated Red Blood Cells 0.1 % Troponin I High Sensitivity 5 </=54 ng/L Urine Color Light-yellow Yellow Urine Clarity Clear Clear Urine pH 6.5 5.0-9.0 Urine Specific [place] 1.013 1.001-1.035 Urine Protein Negative Negative Urine Ketones Negative Negative Urine Blood Negative Negative /uL Urine Nitrite Negative Negative Urine Bilirubin Negative Negative Urine Urobilinogen Normal Negative mg/dL Urine Leukocyte Esterase Negative Negative /uL Urine RBC None seen 0 - 3 /hpf Urine Microscopic WBC < 1 0-3 /HPF Urine Squamous Epithelial Cells None seen <5 /hpf Urine Bacteria None seen None Seen /hpf Urine Glucose Normal Normal mg/dL Urine Opiates Screen Neg NEGATIVE Urine Fentanyl Screen Neg NEGATIVE Urine Barbiturates Screen Neg NEGATIVE Urine Phencyclidine Screen Neg NEGATIVE Urine Amphetamines Screen Neg NEGATIVE Urine Benzodiazepines Screen Neg NEGATIVE Urine Cocaine Screen Neg NEGATIVE Urine Cannabinoids Screen Neg NEGATIVE Test 05/11/24 10:01 Range/Units Hemoglobin A1c 5.1 <5.7 % A1C Assessment * Chest pain - troponins negative. EKG negative for acute ischemic changes. Normal EF on echo. Continue aspirin and statin. Outpatient follow up for ischemic workup. [facility]. * Bradycardia - avoid AV hilda blockers. Positive chronotropic response with ambulation in flores. Normal EF on echo no significant valvular structural abnormalities. Outpatient event monitoring. * Dizziness - resolved. Patient continue on meclizine. Scheduled [facility]. * HX cerebral Meningioma - management per primary team. * PAD - continue aspirin and statin and Plavix. Case Discussed with Dr Jiménez. ACS ruled out. Normal EF on echo. Continue on aspirin and Plavix and statin. Outpatient follow up for ischemic workup. Avoid AV hilda blockers, positive chronotropic response with ambulation in the flores. Dizziness has resolved. There is no further cardiac work-up indicated at this time. Thank you for allowing us to participate in this patient's care. Will sign off. Critical care, time spent: 40 minutes This medical document was created using an electronic medical record system with voice recognition software and computerized dictation system. Although this document has been carefully reviewed, there might still be some phonetic and typographical errors. Occasional wrong-word or ``sound-alike substitutions may have occurred due to the inherent limitations of voice recognition software. These areas are purely typographical due to imperfections of the software programs and do not reflect any compromise in the patient's medical care. Please read the chart carefully and recognize, using context, where these substitutions have occurred. Thank you for allowing me to participate in the management of this patient. The treatment plan was discussed with and agreed upon by patient/family including requesting consultants and ordering of imaging/procedures. Plan discussed with: Patient NYHA Physical activity limitations: NA Date of Service: May 14, 2024 Billing Provider: SOLITARIO COE Cardiology Common Codes: [id number] INP/OBS CARE (High), [id number] CARE 30-74 MIN SOLITARIO COE May 14, 2024 15:47
== END 2024-05-14 17:19 | disposition home or self-care (01) | DRG 392 ==
LOC: ER 09:13 → EDBD 09:13 → EDUNIT# 09:13 → OVERFLOW 15:45 → TELE-WESTW 16:48
PROVIDERS: ADMIT Internal Medicine; ATTEND Internal Medicine
DX: K21.9 Gastro-esophageal reflux disease without esophagitis (principal); I69.354 Hemiplegia and hemiparesis following cerebral infarction affecting left non-dominant side; I10 Essential (primary) hypertension; G47.30 Sleep apnea, unspecified; J32.9 Chronic sinusitis, unspecified; G89.29 Other chronic pain; R00.1 Bradycardia, unspecified; M54.9 Dorsalgia, unspecified; Z20.822 Contact with and (suspected) exposure to COVID-19; E11.51 Type 2 diabetes mellitus with diabetic peripheral angiopathy without gangrene; D64.9 Anemia, unspecified; I45.10 Unspecified right bundle-branch block; E78.5 Hyperlipidemia, unspecified; Z88.5 Allergy status to narcotic agent; Z88.2 Allergy status to sulfonamides; Z88.8 Allergy status to other drugs, medicaments and biological substances; Z79.899 Other long term (current) drug therapy; Z79.891 Long term (current) use of opiate analgesic; Z79.1 Long term (current) use of non-steroidal anti-inflammatories (NSAID); Z87.891 Personal history of nicotine dependence; Z82.5 Family history of asthma and other chronic lower respiratory diseases; Z82.69 Family history of other diseases of the musculoskeletal system and connective tissue; Z88.3 Allergy status to other anti-infective agents; Z98.62 Peripheral vascular angioplasty status; Z90.49 Acquired absence of other specified parts of digestive tract
CPT/HCPCS: 36415; 71045; 80048; 80061; 80307; 81001; 83036; 83735; 84484; 85025; 87426; 87804; 93005; 93306; 94640; 96374; 96375; 99291; G0378; J2405; J2470

== ENCOUNTER 2024-08-04 12:13 | Inpatient (IN) | payer OTHER, MEDICAID ==
[~2024-08-04] VITALS: Ht 172.7 cm; Wt 62.7 kg
[~2024-08-04 12:13] MED LIST changes: +MECL-126 PO
--- NOTE | 2024-08-04 12:31 | ED.PDOC ---
History of Present Illness HPI Comments 74-year-old male brought in by EMS presents with a chief complaint of headache and dizziness. Patient states that he has been feeling dizzy recently and describes the dizziness as "if the room was spinning". Patient denies any injuries or trauma prior to onset of symptoms. Patient has history of AFib and takes Eliquis for it. No other symptoms or modifying factors present at this time. Chief Complaint: Dizziness Time Seen by MD: 12:11 Primary Care Provider: ABAD Osuna Notes: Medications, Allergies Allergies: Coded Allergies: Sulfamethoxazole w/Trimethoprim (Verified Allergy, Intermediate, 02/26/24) Home Meds Active Scripts Budesonide-Formoterol Fumarate (Budesonide/Formoterol Fum 160-4.5 Mcg/Act) 1 Aer Aer, 1 AER IN BID for 30 Days, #1 AER [facility] 02/28/24 Albuterol Sulfate (VENTOLIN MDI) 90 Mcg Ih, 90 MCG IN DAILYP PRN for 30 Days, #1 INH [facility] 02/28/24 Pantoprazole Sodium Sesquihydr (Protonix) 40 Mg Tab, 40 MG PO DAILY for 30 Days, #30 TAB [facility] 02/27/24 Prednisone (Prednisone) 20 Mg Tab, 40 MG PO DAILY for 5 Days, #5 MG Prov:[facility] 02/27/24 Azithromycin (Azithromycin) 500 Mg Tab, 1 TAB PO DAILY for 4 Days, #4 TAB [facility] 02/27/24 Atorvastatin Calcium (ATORVASTATIN CALCIUM) 40 Mg Tab, 1 TAB PO DAILY for 30 Days, #30 TAB 5 Refills [facility] 02/27/24 Reported Medications Meclizine HCl (Meclizine Hydrochloride) 25 Mg Tab, 1 TAB PO TID PRN 05/11/24 Clopidogrel Bisulfate (CLOPIDOGREL) 75 Mg Tab, 75 MG PO DAILY for 30 Days, MG 02/26/24 Ferrous Sulfate (Ferrous Sulfate) 325 Mg Tab, 325 MG PO DAILY for 30 Days, MG 02/26/24 Lisinopril (Lisinopril) 40 Mg Tab, 40 MG PO DAILY for 30 Days, MG 02/26/24 Hydrocodone-Acetaminophen (Hydrocodone Bitartrate/AC 7.5-325 mg) 1 Tab Tab, 1 TAB PO Q12HP PRN for PAIN SCALE 1 THRU 6, TAB 02/26/24 Cyclobenzaprine Hcl (Cyclobenzaprine Hcl) 10 Mg Tab, 10 MG PO Q12HP PRN for FOR MUSCLE SPASM for 30 Days, MG 02/26/24 Information Source: Patient Mode of Arrival: EMS Severity: Moderate Timing: Hours Duration: Since onset Prehospital treatment: [employer] [facility] Past Medical History PAST MEDICAL HISTORY: Anemia, DM, GERD, High Lipids, HTN, Liver Surgical History: Denies all surgeries Family History Family History: Unknown Social History Smoker: Non-Smoker Alcohol: Denies ETOH Use Drugs: Denies Drug Use Lives In: Home Constitutional: denies: chills, diaphoresis, fatigue, fever, malaise, sweats, weakness, others EENTM: denies: blurred vision, double vision, ear bleeding, ear discharge, ear drainage, ear pain, ear ringing, eye pain, eye redness, hearing loss, mouth pain, mouth swelling, nasal discharge, nose bleeding, nose congestion, nose pain, photophobia, tearing, throat pain, throat swelling, voice changes, others Respiratory: denies: cough, hemoptysis, orthopnea, SOB at rest, shortness of breath, SOB with excertion, stridor, wheezing, others Cardiovascular: denies: chest pain, dizzy spells, diaphoresis, Dyspnea on exertion, edema, irregular heart beat, left arm pain, lightheadedness, palpitations, PND, syncope, others Gastrointestinal: denies: abdomen distended, abdominal pain, blood streaked bowels, constipated, diarrhea, dysphagia, difficulty swallowing, hematemesis, melena, nausea, poor appetite, poor fluid intake, rectal bleeding, rectal pain, vomiting, others Genitourinary: denies: burning, dysuria, flank pain, frequency, hematuria, incontinence, penile discharge, penile sore, pain, testicle pain, testicle swelling, urgency, others Neurological: reports: dizziness, headache; denies: fainting, left sided numbness, left sided weakness, numbness, paresthesia, pre-existing deficit, right sided numbness, right sided weakness, seizure, speech problems, tingling, tremors, weakness, others Musculoskeletal: denies: back pain, gout, joint pain, joint swelling, muscle pain, muscle stiffness, neck pain, others Integumetry: denies: bruises, change in color, change in hair/nails, dryness, laceration, lesions, lumps, rash, wounds, others Allergic/Immunocompromised: denies: Difficulty Healing, Frequent Infections, Hives, Itching, others Hematologic/Lymphatic: denies: anemia, blood clots, easy bleeding, easy bruising, swollen glands, others Endocrine: denies: excessive hunger, excessive sweating, excessive thirst, excessive urination, flushing, intolerance to cold, intolerance to heat, unexplained weight gain, unexplained weight loss, others Psychiatric: denies: anxiety, bipolar disorder, depression, hopeless, panic disorder, schizophrenia, sleepless, suicidal, others All Other Systems: Reviewed and Negative Physical Exam General Appearance: Moderate Distress, Normal HEENT: Normal ENT Inspection, Pharynx Normal, TMs Normal Neck: Full Range of Motion, Non-Tender, Normal, Normal Inspection Respiratory: Chest Non-Tender, Lungs Clear, No Accessory Muscle Use, No Respiratory Distress, Normal Breath Sounds Cardiovascular: Irregular, No Edema, No JVD, No Murmur, No Gallop, Normal Peripheral Pulses Breast Exam: Deferred Gastrointestinal: No Organomegaly, Non Tender, No Pulsatile Mass, Normal Bowel Sounds, Soft Genitalia: Deferred Pelvic: Deferred Rectal: Deferred Extremities: No calf tenderness, Normal capillary refill, Normal inspection, Normal range of motion, Non-tender, No pedal edema Musculoskeletal : Apperance: Normal Neurologic: Alert, paper box maker II-XII nml as Tested, No Motor Deficits, Normal Affect, Normal Mood, No Sensory Deficits Cerebellar Function: NOT DONE Reflexes: NOT DONE Skin: Dry, Normal Color, Warm Peripheral Pulses: 3+ Radial (R), 3+ Radial (L) Lymphatic: No Adenopathy Was a procedure done? Was a procedure done?: No EKG EKG : Pulse Rate (adult): 59 [place]: Normal Cardiac Rhythm: NSR Block: RBBB Hypertrophy: None ST: Normal Differential Dx Considerations may include: Autonomic disorder Electrolyte imbalance X-Ray, Labs, Meds, VS Vital Signs Date Time Temp Pulse Resp B/P (MAP) Pulse Ox O2 Delivery O2 Flow Rate FiO2 08/04/24 12:31 59 08/04/24 12:29 98.4 78 18 132/84 (100) 97 98.4 08/04/24 12:13 59 Patient alert pain Complaining of dizziness. EKG does show premature atrial contraction. Vitals stable. He is on blood thinner. Heart rate does fluctuate. Possibly autonomic disorder. Was given meclizine. Explained to the patient. Continue monitoring. Time of 1ST Reevaluation: 13:11 Reevaluation 1ST: Unchanged Patient Education/Counseling: Diagnosis, Treatment, Need For Follow Up Family Education/Counseling: No Family Present SEPSIS Sepsis Screen Physician Orders Electrocardigram (08/04/24 12:20) Complete Blood Count (08/04/24 12:32) Urinalysis (08/04/24 12:32) Basic Metabolic Panel (08/04/24 12:32) Ct Ab Pel Wo Con-No Oral Or Iv (08/04/24 12:32) Vital Signs Date Time Temp Pulse Resp B/P (MAP) Pulse Ox O2 Delivery O2 Flow Rate FiO2 08/04/24 12:31 59 08/04/24 12:29 98.4 78 18 132/84 (100) 97 98.4 08/04/24 12:13 59 Departure 1 Departure Time of Disposition: 13:12 Impression: Primary Impression: Symptomatic bradycardia Additional Impressions: Autonomic disorder Premature atrial contraction Disposition: ADMITTED INPATIENT Admit to: Med Surg Condition: Guarded Critical Care Note Critical Care Time?: Yes (90 min-critical care time only) Critical care comment: Continue to monitor Stability Stability form required: No Heart Score Heart Score: Heart Score Response (Comments) Value History Slightly Suspicious 0 EKG Normal 0 Age >65 2 Risk Factors >3 or Hx ASHD 2 Troponin Normal limit 0 Total 4 I personally scribed for JOSSY KATZ MD ([email or web address]) on 08/04/24 at 12:31. Electronically submitted by Tony Genao [email or web address]). JOSSY KATZ MD Aug 04, 2024 12:31
[2024-08-04 13:28] LABS: Hematocrit 37.6 % (41.0-53.0); Hemoglobin 12.9 g/dL (13.5-17.5); Mean Corpuscular Hemoglobin 32.8 pg (28.0-32.0); Mean Corpuscular Volume 96.0 fL (80.0-100.0); Nucleated Red Blood Cells % 0.0 %
[2024-08-04 13:42] LABS: Anion Gap 8 (5-15); Carbon Dioxide 26 mmol/L (20-31); Potassium 4.2 mmol/L (3.5-5.1); Sodium 143 mmol/L (136-145)
[2024-08-04 13:43] LABS: Calcium 9.9 mg/dL (8.7-10.4); Chloride 109 mmol/L (98-107)
[2024-08-04 13:48] LABS: Glucose 132 mg/dL (74-106)
[2024-08-04 13:49] LABS: BUN/Creatinine Ratio 14.3 (10.0-20.0); Blood Urea Nitrogen 13 mg/dL (9-23)
[2024-08-04] MEDS: MECLIZINE HCL 25 MG TAB PO ONE (14:00)
--- NOTE | 2024-08-04 14:02 | DVH ---
Exam: CT CT AB PEL WO CON-NO ORAL OR IV History: dizzy Comparison Study: None Technique: Multidetector spiral CT of the abdomen was performed from lung bases to pubic symphysis. I maging was performed without IV contrast. Axial, coronal and sagittal multiplanar reformats were obta ined from the axial data set by the technologist. Radiation Dose : 1. Abdomen/Pelvis: CTDIvol 5.96 mGy, DLP 285.73 mGy*cm. Findings: Evaluation of solid organs is limited due to lack of intravenous contrast use. Lung Bases: Severe emphysema. Liver: The liver is normal in size. No focal lesions. Gallbladder and Biliary Tree: Unremarkable Spleen: Unremarkable Pancreas: The pancreas is grossly normal in appearance. Adrenal Glands: Unremarkable Kidneys: No hydronephrosis. Punctate 0.1 cm nonobstructing stone in the mid right kidney. Left renal cyst measures 2.1 cm. Bladder: Diffuse urinary bladder wall thickening. Bowel: Small hiatal hernia. Moderate colonic stool. The appendix is not visualized; however, no secon atilio findings of acute appendicitis identified. Ascites: Absent Lymphadenopathy: No mesenteric, retroperitoneal or periportal lymphadenopathy. Abdominal Wall and Mesentery: Unremarkable. Vasculature: Bilateral femoral femoral bypass graft. The visualized abdominal aorta is normal in size and caliber. There is extensive atherosclerotic calcification of the aorta and its branches. Evalua tion of abdominal and pelvic vessels is limited due to lack of intravenous contrast. Pelvic Organs: Unremarkable Musculoskeletal: No aggressive focal bony lesions, acute fractures or dislocation. IMPRESSION: Moderate volume colonic stool. Moderate colonic stool. Severe emphysema. Nonspecific diffuse urinary bladder wall thickening. This can be seen in cystitis or chronic bladder outlet obstruction.
[2024-08-04 16:01] VITALS: PULSE 52; RESP 16; O2SAT 99
--- NOTE | 2024-08-04 18:58 | ECG ---
[facility] Test Date: 2024-08-04 Test Time: 12:12:40 Pat Name: TIERA SALMERON Department: ED Room: 0277T Gender: M Sustainability Communicator: JEFFREY : 1950 Requested By: JOSSY KATZ Order Number: [id number] Reading MD: Jose Jiménez Measurements Intervals [place] Rate: 59 P: 77 CO: 136 QRS: 96 QRSD: 128 T: 35 QT: 384 QTc: 381 Interpretive Statements Unknown rhythm, irregular rate RBBB and LPFB Electronically Signed On 08-05-2024 20:12:56 PDT by Jose Jiménez Please click the below link to view image of tracing.
[2024-08-04 19:07] LABS: Urine Protein, UAD Negative (Negative)
[2024-08-04] MEDS: HYDROcodone-ACET 5/325MG TAB PO ONE (20:14)
[2024-08-05] VITALS (16 sets, daily range): BP systolic 118–164; BP diastolic 62–85; PULSE 48–67; RESP 12–20; TEMP 97.4–98.4; O2SAT 93–100
--- NOTE | 2024-08-05 02:00 | DVHHPRES ---
History of Present Illness Resident Creating Document: ROBYN SOLIS RESIDENT History of Present Illness 74-year-old male patient with past medical history of hypertension, dyslipidemia, stroke, back pain, GERD, peripheral artery disease status post angiogram, COPD, AFib on Eliquis, possible pulmonary nodules, PTSD, hypertensio n, possible liver cirrhosis, insomnia, possible obstructive sleep apnea presented with complaints of dizziness and vertigo last two days. Mentioned that he started having feeling of "room spinning" associated with headache and dizziness. Patient also mentioned that palpitation when he gets episodes of dizziness. Patient denied any chest pain, shortness of breath, vomiting, abdom inal pain. Patient also mentions of complaints of cough with sputum which correlated to nasal congestion. Patient mentioned here that he had slurred speech that started after stroke. Past medical history hypertension, dyslipidemia, stroke, back pain, GERD, peripheral artery disease status post angiogram, COPD, AFib on Eliquis, possible pulmonary nodules, PTSD, hypertension, possible liver cirrhosis, insomnia, possible obstructive sleep apnea Surgical history Denied any recent surgery Angiogram and and placement for peripheral arterial disease Medication history Albuterol Atorvastatin Iron sulfate Lisinopril Allergic history Bactrim Family history Significant to the above illness Social history Patient smokes one cigarette every day for last 40 years Occasional alcohol use Review of Systems Review of Systems As described in the HPI. Allergies: Coded Allergies: Sulfamethoxazole w/Trimethoprim (Verified Allergy, Intermediate, 02/26/24) Exam Vital Signs Vital Signs Date Time Temp Pulse Resp B/P (MAP) Pulse Ox O2 Delivery O2 Flow Rate FiO2 08/05/24 01:16 98.3 52 12 133/72 (92) 99 98.3 08/05/24 00:30 Room Air* 0 21 Exam Examination General Appearance: Alert, Oriented X3, Cooperative, No acute distress HEENT: EOMI Respiratory: Clear to auscultation, Normal air movement Cardiovascular: Regular rate, Normal S1, Normal S2 Abdominal: Normal bowel sounds Extremities: No cyanosis, No edema, Normal pulses, No tenderness/swelling Skin: No rashes, No breakdown Neuro: Normal gait, Normal speech, Strength at 5/5 X4 ext, Normal tone, Sensation intact, Cranial nerves 3-12 NL, Reflexes 2+ Psych/Mental Status: Mental status NL, Mood NL Labs/Xrays Labs Test 08/04/24 21:42 08/04/24 18:30 08/04/24 13:13 Range/Units POC Glucose 116 H 70-106 mg/dl Urine Color Light-yellow Yellow Urine Clarity Clear Clear Urine pH 6.0 5.0-9.[address] [place] 1.018 1.001-1.035 Urine Protein Negative Negative Urine Ketones Negative Negative Urine Blood Negative Negative /uL Urine Nitrite Negative Negative Urine Bilirubin Negative Negative Urine Urobilinogen Normal Negative mg/dL Urine Leukocyte Esterase Negative Negative /uL Urine RBC 1 0 - 3 /hpf Urine Microscopic WBC < 1 0-3 /HPF Urine Squamous Epithelial Cells None seen <5 /hpf Urine Bacteria None seen None Seen /hpf Urine Glucose Normal Normal mg/dL White Blood Count 7.3 4.4-10.8 10^3/uL Red Blood Count 3.92 L 4.5-5.90 10^6/uL Hemoglobin 12.9 L 13.5-17.5 g/dL Hematocrit 37.6 L 41.0-53.0 % Mean Corpuscular Volume 96.0 80.0-100.0 fL Mean Corpuscular Hemoglobin 32.8 H 28.0-32.0 pg Mean Corpuscular Hemoglobin Concent 34.2 32.0-36.0 g/dL Red Cell Distribution Width 14.4 H 11.8-14.3 % Platelet Count 250 140-450 10^3/uL Mean Platelet Volume 7.1 6.9-10.8 fL Neutrophils (%) (Auto) 64.9 37.0-80.0 % Lymphocytes (%) (Auto) 26.1 10.0-50.0 % Monocytes (%) (Auto) 6.3 0.0-12.0 % Eosinophils (%) (Auto) 1.9 0.0-7.0 % Basophils (%) (Auto) 0.8 0.0-2.0 % Neutrophils # (Auto) 4.7 1.6-8.6 10 ^3/uL Lymphocytes # (Auto) 1.9 0.4-5.4 10 ^3/uL Monocytes # (Auto) 0.5 0-1.3 10 ^3/uL Eosinophils # (Auto) 0.1 0-0.8 10 ^3/uL Basophils # (Auto) 0.1 0-0.2 10 ^3/uL Nucleated Red Blood Cells 0.0 % Sodium Level 143 136-145 mmol/L Potassium Level 4.2 3.5-5.1 mmol/L Chloride Level 109 H 98-107 mmol/L Carbon Dioxide Level 26 20-31 mmol/L Anion Gap 8 5-15 Blood Urea Nitrogen 13 9-23 mg/dL Creatinine 0.91 0.700-1.30 mg/dL Glomerular Filtration Rate Calc 88 >90 mL/min BUN/Creatinine Ratio 14.3 10.0-20.0 Serum Glucose 132 H 74-106 mg/dL Calcium Level 9.9 8.7-10.4 mg/dL Assessment/Plan Assessment/Plan Assessment/plan # dizziness, ? Symptomatic bradycardia EKG Tele monitoring Tropes Echo Cardiology consult head CT TSH, B12 and Folate Marlo Hallpike negative #Moderate volume colonic stool. #Moderate colonic stool. -seen on CT stool softeners #Nonspecific diffuse urinary bladder wall thickening. -seen on CT #hypertension -normal Bp resume home meds #dyslipidemia resume home meds #history of stroke resume home meds #back pain resume home meds #GERD resume home meds #peripheral artery disease status post angiogram resume home meds #COPD -stable #possible pulmonary nodules CXR #PTSD resume home meds #possible liver cirrhosis -CMP #insomnia resume home meds #possible obstructive sleep apnea CPAP at night Case discussion with Dr Hassan Plan discussed with: Patient, Other My Orders Orders - ROBYN SOLIS RESIDENT Procedure Category Date Status Time Cardiac DIET 08/05/24 Transmitted Diet-2gna,Lofat,Lochol Breakfast Admit ADMIT 08/04/24 Transmitted 22:16 Oxygen By Nasal RT 08/04/24 Transmitted Cannula 22:16 Stat Ekg For Chest [facility] 08/04/24 In Process Pain 22:16 Notify Of Changes [facility] 08/04/24 In Process From Base 22:16 Client Specialist For [facility] 08/04/24 In Process 24 Hours 22:16 Emergency Dysrhythmia [facility] 08/04/24 In Process Protocol 22:16 Rhythm Strips Once [facility] 08/04/24 In Process Every Shift 22:16 Date of Service: Aug 04, 2024 Billing Provider: SHUKRI HASSAN MD Common Visit Codes: [id number] INP/OBS CARE (HIGH) Secondary Visit Codes: [id number] CARE PLAN 30 MINUTES ROBYN SOLIS RESIDENT Aug 05, 2024 02:00
[2024-08-05] MEDS ORDERED: CYCL-839 PO (02:02)
[2024-08-05] MEDS ORDERED: CLOP75TA70 PO (02:02)
[2024-08-05] MEDS ORDERED: ATOR-47 PO ×2 (02:02)
[2024-08-05] MEDS ORDERED: DONE5TAB80 PO (02:02)
[2024-08-05] MEDS ORDERED: ASCO500T16 PO (02:02)
[2024-08-05] MEDS ORDERED: TAMS0.4C39 PO (02:02)
[2024-08-05] MEDS ORDERED: FAMO-12 PO (02:02)
[2024-08-05] MEDS ORDERED: AMLO1TAB22 PO (02:02)
[2024-08-05] MEDS ORDERED: ASPI-543 PO (02:02)
[2024-08-05] MEDS ORDERED: MECL-90 PO (02:02)
[2024-08-05] MEDS ORDERED: ONDANSETRON HCL 4 MG/2 ML VIAL IV PRN (02:45)
[2024-08-05] MEDS ORDERED: DOCUSATE SOD 100 MG CAP PO PRN (02:45)
[2024-08-05] MEDS: ACETAMINOPHEN 325 MG TAB PO ONE (02:45)
[2024-08-05] MEDS: ONDANSETRON HCL 4 MG/2 ML VIAL IV ONE (02:45)
[2024-08-05] MEDS: HYDROcodone-ACET 5/325MG TAB PO PRN (03:53)
[2024-08-05] MEDS: ACETAMINOPHEN 325 MG TAB PO SCH (04:03)
[2024-08-05 06:26] LABS: Hematocrit 38.5 % (41.0-53.0); Hemoglobin 13.0 g/dL (13.5-17.5); Mean Corpuscular Hemoglobin 32.3 pg (28.0-32.0); Mean Corpuscular Volume 95.3 fL (80.0-100.0); Nucleated Red Blood Cells % 0.1 %
[2024-08-05 06:45] LABS: Alanine Aminotransferase 20 U/L (7-40); Albumin 4.1 g/dL (3.2-4.8); Alkaline Phosphatase 83 U/L (46-116); Anion Gap 8 (5-15); BUN/Creatinine Ratio 17.0 (10.0-20.0); Blood Urea Nitrogen 18 mg/dL (9-23); Calcium 9.7 mg/dL (8.7-10.4); Carbon Dioxide 26 mmol/L (20-31); Cholesterol 114 mg/dL (< 200); Glucose 82 mg/dL (74-106); HDL Cholesterol 51 mg/dL (40-59); Magnesium 2.1 mg/dL (1.6-2.6); Potassium 4.4 mmol/L (3.5-5.1); Sodium 144 mmol/L (136-145); Total Protein 6.1 g/dL (5.7-8.2); Triglycerides 45 mg/dL (< 150)
[2024-08-05 06:46] LABS: Bilirubin, Total 0.4 mg/dL (0.2-1.0)
[2024-08-05 06:54] LABS: Chloride 110 mmol/L (98-107)
--- NOTE | 2024-08-05 08:43 | DVH ---
CT HEAD WITHOUT CONTRAST INDICATION: persistent dizziness EXAM DATE: 08/05/2024 08:06 AM COMPARISON: CT HEAD WITHOUT CONTRAST on DOS: 03/27/24 RADIATION DOSE: CTDIvol: 53.99 mGy, DLP: 863.9 mGy*cm PROCEDURE: CT scans of the head were obtained from the vertex to the skull base. Sagittal and coronal reconstructions were provided. All CT scans at this medical facility are performed using dose modulation techniques as appropriate t o a performed exam including the following: Automated exposure control was utilized; adjustment of th e MA and/or KV according to patient size; and use of iterative reconstruction technique. FINDINGS: There is no acute intracranial hemorrhage, extra-axial fluid collection, mass effect, or midline shif t. There is a rim partial rim calcified 2.4 x 1.3 cm left frontal extra-axial mass. There is patchy periventricular and subcortical white matter hypoattenuation, nonspecific. 7 mm old r ight thalamic infarct. Paranasal sinuses and mastoid air cells are clear. Calvarium is intact. IMPRESSION: 1. No acute intracranial findings 2. Unchanged size of the left frontal meningioma when compared to 03/17/2024 3. Mild chronic schematic white matter change 4. Old small right thalamic infarct
[2024-08-05] MEDS: FAMOTIDINE 20 MG TAB PO SCH (09:41)
[2024-08-05] MEDS: ENOXAPARIN SOD 40 MG/0.4 ML SYRINGE SC SCH (09:42)
[2024-08-05] MEDS: ALBUTEROL SULF 2.5 MG/0.5ML(0.5%) NEB SOLN NEB PRN (10:06)
[2024-08-05] MEDS: IPRATROPIUM BROM 0.5 MG/2.5ML INH SOL NEB PRN (10:06)
--- NOTE | 2024-08-05 13:18 | DVHINCON2 ---
Date Seen: Aug 05, 2024 Referring Physician Janae Reason for Consultation Bradycardia, dizziness History of Present Illness 74-year-old male with PMH for HTN, HLD, CVA, vertigo COPD on Eliquis, CAD, dementia presents to the hospital with dizziness and vertigo for the last 2 days. Patient states he has been having feelings of the room spinning and headaches and dizziness, no episodes of syncope or near-syncope only dizziness. Patient denies any chest pain, palpitation, shortness of breath. Patient recently had event monitoring in place and [facility] has not been able to set up transportation for follow up appointment. Patient has recurrent hospitalization with dizziness for which patient states meclizine helps for short term. Denies any chest pain, palpitation, shortness of breath. EKG reviewed and shows sinus rhythm with PACs at 59 beats per minute. Possible WAP Past Medical History As stated above Past Surgical History Denies previous cardiac surgeries Family History: FH: colon cancer G8 BROTHER FH: emphysema G8 BROTHER FH: heart attack uncles uncles uncles FH: stroke G8 FATHER Social History Denies alcohol or illicit drug use, previous tobacco smoker Allergies: Coded Allergies: Sulfamethoxazole w/Trimethoprim (Verified Allergy, Intermediate, 02/26/24) Home Meds Active Scripts Budesonide-Formoterol Fumarate (Budesonide/Formoterol Fum 160-4.5 Mcg/Act) 1 Aer Aer, 1 AER IN BID for 30 Days, #1 AER Prov:GLORIA MAS RESIDENT 02/28/24 Albuterol Sulfate (VENTOLIN MDI) 90 Mcg Ih, 90 MCG IN DAILYP PRN for 30 Days, #1 INH Prov:GLORIA MAS RESIDENT 02/28/24 Reported Medications Clopidogrel Bisulfate (CLOPIDOGREL) 75 Mg Tab, 75 MG PO DAILY for 30 Days, MG 08/05/24 Ascorbic Acid (Ascorbic Acid) 500 Mg Tab, 500 MG PO DAILY for 30 Days, MG 08/05/24 Tamsulosin Hcl (Tamsulosin Hcl) 0.4 Mg Cap, 0.4 MG PO QPM for 30 Days, MG 08/05/24 Famotidine (Famotidine) 20 Mg Tab, 20 MG PO DAILY for 30 Days, MG 08/05/24 Aspirin (Aspir-Low) 81 Mg Tab, 81 MG PO DAILY for 30 Days, MG 08/05/24 Atorvastatin Calcium (ATORVASTATIN CALCIUM) 80 Mg Tab, 1 TAB PO DAILY, #30 TAB 5 Refills 08/05/24 Donepezil Hydrochloride (DONEPEZIL HCL) 5 Mg Tab, 5 MG PO DAILY for 30 Days, MG 08/05/24 Amlodipine Besylate (Amlodipine Besylate) 5 Mg Tab, 10 MG PO DAILY for 30 Days, MG 08/05/24 Meclizine HCl (Meclizine Hydrochloride) 25 Mg Tab, 1 TAB PO TID PRN 05/11/24 Hydrocodone-Acetaminophen (Hydrocodone Bitartrate/AC 7.5-325 mg) 1 Tab Tab, 1 TAB PO Q12HP PRN for PAIN SCALE 1 THRU 6, TAB 02/26/24 Cyclobenzaprine Hcl (Cyclobenzaprine Hcl) 10 Mg Tab, 10 MG PO Q12HP PRN for FOR MUSCLE SPASM for 30 Days, MG 02/26/24 Current Medications Current Medications Medications (Trade) Dose Ordered Sig/Georgie Route PRN Reason Start Time Stop Time Status Last Admin Ondansetron HCl (Zofran) 4 mg Q4HPRN PRN IV NAUSEA / VOMITING 08/05/24 02:45 Acetaminophen/ Hydrocodone Bitart ([place] 5/325MG Tab) 1 tab Q4HPRN PRN PO MODERATE PAIN (4-6 PAIN SCALE) 08/05/24 02:45 08/05/24 03:53 Acetaminophen (Tylenol Tablet) 650 mg Q6HP PO 08/05/24 06:00 08/05/24 11:50 Docusate Sodium (Colace Capsule) 100 mg BIDPRN PRN PO FOR CONSTIPATION 08/05/24 02:45 Albuterol (Ventolin Medneb) 2.5 mg Q4HPRN PRN NEB SHORTNESS OF BREATH 08/05/24 03:15 08/05/24 10:06 Ipratropium [place] (Atrovent Medneb) 0.5 mg Q4HPRN PRN NEB SHORTNESS OF BREATH 08/05/24 03:15 08/05/24 10:06 Aspirin 81 mg DAILY PO 08/05/24 10:00 08/05/24 09:41 Atorvastatin Calcium (Lipitor) 80 mg HS PO 08/05/24 22:00 Meclizine HCl (Antivert Tablet) 25 mg Q6HPRN PRN PO DIZZINESS 08/05/24 03:15 Famotidine (Pepcid Tablet) 20 mg DAILY PO 08/05/24 10:00 08/05/24 09:41 Enoxaparin Sodium (Lovenox) 40 mg DAILY SC 08/05/24 10:00 08/05/24 09:42 Review of Systems Constitutional: No: Fever, Chills, Sweats, Weakness, Malaise, Other Eyes: No: Pain, Vision change, Conjunctivae inflammation, Eyelid inflammation, Other, Redness ENT: No: Ear pain, Ear discharge, Nose pain, Nose discharge, Nose congestion, Mouth pain, Mouth swelling, Throat pain, Throat swelling, Other Respiratory: No: Cough, Dry, Shortness of breath, SOB with exertion, Wheezing, Hemoptysis, Pleuritic Pain, Sputum, Wheezing, Other Cardiovascular: ; No: Chest Pain Palpitations, Orthopnea, Paroxysmal Noc. Dyspnea, Edema, Lt Headedness, Other Gastrointestinal: No: Nausea, Vomiting, Abdominal Pain, Diarrhea, Constipation, Melena, Hematochezia, Other Genitourinary: No Dysuria, No Frequency, No Incontinence, No Hematuria, No Retention, No Other Musculoskeletal: neck pain; No: other, shoulder pain, arm pain, back pain, hand pain, leg pain, foot pain Skin: No: Rash, Lesions, Jaundice, Bruising, Other Neurological: Other (Dizziness, headache.); No: Weakness, Numbness, Incoordination, Change in speech, Confusion, Seizures Vital Signs Vital Signs Date Time Temp Pulse Resp B/P (MAP) Pulse Ox O2 Delivery O2 Flow Rate FiO2 08/05/24 10:12 51 14 100 08/05/24 10:06 Room Air* 0 21 08/05/24 09:00 97.4 118/62 (80) 97.4 Physical Exam General appearance: Patient is well-developed, well-nourished, in no acute distress. HEENT: Exam shows: Normocephalic, atraumatic, PERRLA, EOMI Neck: Supple, no bruits Chest: Equal chest excursion bilaterally. Breath sounds normal-no rales or wheezes. Heart: Rhythm: Regular rate; bradycardia, PACs; no murmur or gallop Abdomen: Exam shows: Soft, nontender, nondistended Musculoskeletal: No clubbing, no cyanosis, no lower extremity edema Dermatology: Skin warm, moist. Neurological: Exam shows: Alert and oriented x3, normal speech Available prior records, labs, EKG, rhythm strips reviewed and interpreted Labs/Diagnostic Data Labs Test 08/05/24 06:05 08/04/24 21:42 08/04/24 18:30 Range/Units White Blood Count 7.9 4.4-10.8 10^3/uL Red Blood Count 4.04 L 4.5-5.90 10^6/uL Hemoglobin 13.0 L 13.5-17.5 g/dL Hematocrit 38.5 L 41.0-53.0 % Mean Corpuscular Volume 95.3 80.0-100.0 fL Mean Corpuscular Hemoglobin 32.3 H 28.0-32.0 pg Mean Corpuscular Hemoglobin Concent 33.9 32.0-36.0 g/dL Red Cell Distribution Width 14.3 11.8-14.3 % Platelet Count 268 140-450 10^3/uL Mean Platelet Volume 6.9 6.9-10.8 fL Neutrophils (%) (Auto) 49.3 37.0-80.0 % Lymphocytes (%) (Auto) 33.9 10.0-50.0 % Monocytes (%) (Auto) 10.2 0.0-12.0 % Eosinophils (%) (Auto) 5.9 0.0-7.0 % Basophils (%) (Auto) 0.7 0.0-2.0 % Neutrophils # (Auto) 3.9 1.6-8.6 10 ^3/uL Lymphocytes # (Auto) 2.7 0.4-5.4 10 ^3/uL Monocytes # (Auto) 0.8 0-1.3 10 ^3/uL Eosinophils # (Auto) 0.5 0-0.8 10 ^3/uL Basophils # (Auto) 0.1 0-0.2 10 ^3/uL Nucleated Red Blood Cells 0.1 % Sodium Level 144 136-145 mmol/L Potassium Level 4.4 3.5-5.1 mmol/L Chloride Level 110 H 98-107 mmol/L Carbon Dioxide Level 26 20-31 mmol/L Anion Gap 8 5-15 Blood Urea Nitrogen 18 9-23 mg/dL Creatinine 1.06 0.700-1.30 mg/dL Glomerular Filtration Rate Calc 74 >90 mL/min BUN/Creatinine Ratio 17.0 10.0-20.0 Serum Glucose 82 74-106 mg/dL Hemoglobin A1c 5.3 <5.7 % A1C Calcium Level 9.7 8.7-10.4 mg/dL Magnesium Level 2.1 1.6-2.6 mg/dL Total Bilirubin 0.4 0.2-1.0 mg/dL Aspartate Amino Transferase (AST) 23 <34 U/L Alanine Aminotransferase (ALT) 20 7-40 U/L Alkaline Phosphatase 83 46-116 U/L Total Protein 6.1 5.7-8.2 g/dL Albumin 4.1 3.2-4.8 g/dL Triglycerides Level 45 < 150 mg/dL Cholesterol Level 114 < 200 mg/dL LDL Cholesterol 48 < 100 mg/dL HDL Cholesterol 51 40-59 mg/dL Thyroid Stimulating Hormone (TSH) 2.21 0.55-4.78 uIU/mL POC Glucose 116 H 70-106 mg/dl Urine Color Light-yellow Yellow Urine Clarity Clear Clear Urine pH 6.0 5.0-9.0 Urine Specific [place] 1.018 1.001-1.035 Urine Protein Negative Negative Urine Ketones Negative Negative Urine Blood Negative Negative /uL Urine Nitrite Negative Negative Urine Bilirubin Negative Negative Urine Urobilinogen Normal Negative mg/dL Urine Leukocyte Esterase Negative Negative /uL Urine RBC 1 0 - 3 /hpf Urine Microscopic WBC < 1 0-3 /HPF Urine Squamous Epithelial Cells None seen <5 /hpf Urine Bacteria None seen None Seen /hpf Urine Glucose Normal Normal mg/dL Assessment * Sinus bradycardia, possible WAP - continue telemetry monitoring. Avoid AV hilda blockers. Patient with history of event monitoring [facility] Continue outpatient follow up. Noted to have positive chronotropic response with ambulation. * Dizziness, vertigo - CT head with chronic findings no acute pathology. Carotid Doppler pending. Continued on meclizine. * HTN - BP stable off meds, continue monitoring. Case Discussed with Dr Romo. Continue telemetry monitoring. TSH normal. No signs of significant pauses on monitor. Positive chronotropic response while getting up out of bed. Continues to have intermittent episodes of dizziness, blood pressure stable, likely continued episodes of vertigo. Cardiology etiology unlikely. Patient with previous stress test negative 05/2024. Echo pending. Critical care, time spent: 40 minutes This medical document was created using an electronic medical record system with voice recognition software and computerized dictation system. Although this document has been carefully reviewed, there might still be some phonetic and typographical errors. Occasional wrong-word or ``sound-alike substitutions may have occurred due to the inherent limitations of voice recognition software. These areas are purely typographical due to imperfections of the software programs and do not reflect any compromise in the patient's medical care. Please read the chart carefully and recognize, using context, where these substitutions have occurred. Thank you for allowing me to participate in the management of this patient. The treatment plan was discussed with and agreed upon by patient/family including requesting consultants and ordering of imaging/procedures. Plan discussed with: Patient NYHA Physical activity limitations: NA Date of Service: Aug 05, 2024 Billing Provider: SOLITARIO COE Cardiology Common Codes: 64984-[id number] INP/OBS CARE (High) SOLITARIO COE Aug 05, 2024 13:18
--- NOTE | 2024-08-05 15:10 | DVH ---
US CAROTID DOPPLER CLINICAL INDICATION: Dizziness TECHNIQUE: Multiple grayscale, color Doppler and spectral Doppler ultrasound images were obtained thr oughout both carotid systems. COMPARISON: None FINDINGS: RIGHT: CCA PSV: 74 cm/s ECA PSV: 64 cm/s ICA PSV: 103 cm/s ICA EDV: 39 cm/s ICA/CCA Ratio: 1.4 Vertebral artery: Patent, antegrade flow. Calcified plaque at the carotid bifurcation. Grayscale images demonstrate no visible stenosis. Spectr al analysis demonstrates no hemodynamically significant CCA or ICA stenosis. LEFT: CCA PSV: 75 cm/s ECA PSV: 45 cm/s ICA PSV: 109 cm/s ICA EDV: 35 cm/s ICA/CCA Ratio: 1.5 Vertebral artery: Patent, antegrade flow. Calcified plaque at the carotid bifurcation. Grayscale images demonstrate no visible stenosis. Spect ral analysis demonstrates no hemodynamically significant CCA or ICA stenosis. IMPRESSION: 1. No evidence of hemodynamically significant CCA or ICA stenosis. 2. Calcified plaque of the bilateral carotid bifurcations.
--- NOTE | 2024-08-05 15:52 | DVHDS2 ---
Discharge Summary Date of Admission Aug 04, 2024 at 22:16 Labs/Diagnostic Data: Laboratory Results Test 08/05/24 06:05 08/04/24 21:42 08/04/24 18:30 White Blood Count 7.9 10^3/uL (4.4-10.8) Red Blood Count 4.04 10^6/uL (4.5-5.90) Hemoglobin 13.0 g/dL (13.5-17.5) Hematocrit 38.5 % (41.0-53.0) Mean Corpuscular Volume 95.3 fL (80.0-100.0) Mean Corpuscular Hemoglobin 32.3 pg (28.0-32.0) Mean Corpuscular Hemoglobin Concent 33.9 g/dL (32.0-36.0) Red Cell Distribution Width 14.3 % (11.8-14.3) Platelet Count 268 10^3/uL (140-450) Mean Platelet Volume 6.9 fL (6.9-10.8) Neutrophils (%) (Auto) 49.3 % (37.0-80.0) Lymphocytes (%) (Auto) 33.9 % (10.0-50.0) Monocytes (%) (Auto) 10.2 % (0.0-12.0) Eosinophils (%) (Auto) 5.9 % (0.0-7.0) Basophils (%) (Auto) 0.7 % (0.0-2.0) Neutrophils # (Auto) 3.9 10 ^3/uL (1.6-8.6) Lymphocytes # (Auto) 2.7 10 ^3/uL (0.4-5.4) Monocytes # (Auto) 0.8 10 ^3/uL (0-1.3) Eosinophils # (Auto) 0.5 10 ^3/uL (0-0.8) Basophils # (Auto) 0.1 10 ^3/uL (0-0.2) Nucleated Red Blood Cells 0.1 % Sodium Level 144 mmol/L (136-145) Potassium Level 4.4 mmol/L (3.5-5.1) Chloride Level 110 mmol/L (98-107) Carbon Dioxide Level 26 mmol/L (20-31) Anion Gap 8 (5-15) Blood Urea Nitrogen 18 mg/dL (9-23) Creatinine 1.06 mg/dL (0.700-1.30) Glomerular Filtration Rate Calc 74 mL/min (>90) BUN/Creatinine Ratio 17.0 (10.0-20.0) Serum Glucose 82 mg/dL (74-106) Hemoglobin A1c 5.3 % A1C (<5.7) Calcium Level 9.7 mg/dL (8.7-10.4) Magnesium Level 2.1 mg/dL (1.6-2.6) Total Bilirubin 0.4 mg/dL (0.2-1.0) Aspartate Amino Transferase (AST) 23 U/L (<34) Alanine Aminotransferase (ALT) 20 U/L (7-40) Alkaline Phosphatase 83 U/L (46-116) Total Protein 6.1 g/dL (5.7-8.2) Albumin 4.1 g/dL (3.2-4.8) Triglycerides Level 45 mg/dL (< 150) Cholesterol Level 114 mg/dL (< 200) LDL Cholesterol 48 mg/dL (< 100) HDL Cholesterol 51 mg/dL (40-59) Thyroid Stimulating Hormone (TSH) 2.21 uIU/mL (0.55-4.78) POC Glucose 116 mg/dl (70-106) Urine Color Light-yellow (Yellow) Urine Clarity Clear (Clear) Urine pH 6.0 (5.0-9.0) Urine Specific [place] 1.018 (1.001-1.035) Urine Protein Negative (Negative) Urine Ketones Negative (Negative) Urine Blood Negative /uL (Negative) Urine Nitrite Negative (Negative) Urine Bilirubin Negative (Negative) Urine Urobilinogen Normal mg/dL (Negative) Urine Leukocyte Esterase Negative /uL (Negative) Urine RBC 1 /hpf (0 - 3) Urine Microscopic WBC < 1 /HPF (0-3) Urine Squamous Epithelial Cells None seen /hpf (<5) Urine Bacteria None seen /hpf (None Seen) Urine Glucose Normal mg/dL (Normal) Other Laboratory Tests 08/05/24 06:05 Discharge Statement: "Patient was advised to return to the ER or call 911 if any headaches, dizziness, shortness of breath, chest pain, abdominal pain, bleeding, fevers, or worsening of medical condition. Patient was counseled about treatment plan, medications, possible side effects, patientverbalized understanding. All questions were answered to the best of my ability. This discharge took greater then 30 minutes in planning, reviewing documentation, counseling the patient, and discussing with other team members." ASSESSMENT ASSESSMENT Assessment KENDELL FABIAN MD Aug 05, 2024 15:52
--- NOTE | 2024-08-05 15:59 | DVHINCON2 ---
Date Seen: Aug 05, 2024 Referring Physician Janae Reason for Consultation Bradycardia, dizziness History of Present Illness This is [id number] male with a PMH of HTN, HLD, CVA, vertigo COPD on Eliquis, CAD, dementia who presented to the ED with complaints of dizziness and vertigo for the last 2 days. Patient states he has been having feelings of the room spinning and headaches and dizziness, no episodes of syncope or near-syncope only dizziness. Patient denies any chest pain, palpitation, shortness of breath. Patient recently had event monitoring in place and was [facility] though has not been able to set up transportation for follow up appointment. Patient has recurrent hospitalization with dizziness for which patient states meclizine helps for short term resolution of symptoms. Denies any chest pain, palpitation, shortness of breath. EKG reviewed and shows sinus rhythm with PACs at 59 beats per minute, possible WAP. CT ABD PEL shows moderate volume colonic stool, moderate colonic stool, severe emphysema. Nonspecific diffuse urinary bladder wall thickening. CT head shows unchanged size of the left frontal meningioma when compared to 03/17/2024. Mild chronic schematic white matter change. Old small right thalamic infarct. Patient was admitted to the hospital. I am asked to consult on this patient. Past Medical History As stated above Past Surgical History Denies previous cardiac surgeries Family History: FH: colon cancer G8 BROTHER FH: emphysema G8 BROTHER FH: heart attack uncles uncles uncles FH: stroke G8 FATHER Allergies: Coded Allergies: Sulfamethoxazole w/Trimethoprim (Verified Allergy, Intermediate, 02/26/24) Home Meds Active Scripts Budesonide-Formoterol Fumarate (Budesonide/Formoterol Fum 160-4.5 Mcg/Act) 1 Aer Aer, 1 AER IN BID for 30 Days, #1 AER Prov:GLORIA MAS RESIDENT 02/28/24 Albuterol Sulfate (VENTOLIN MDI) 90 Mcg Ih, 90 MCG IN DAILYP PRN for 30 Days, #1 INH Prov:GLORIA MAS RESIDENT 02/28/24 Reported Medications Clopidogrel Bisulfate (CLOPIDOGREL) 75 Mg Tab, 75 MG PO DAILY for 30 Days, MG 08/05/24 Ascorbic Acid (Ascorbic Acid) 500 Mg Tab, 500 MG PO DAILY for 30 Days, MG 08/05/24 Tamsulosin Hcl (Tamsulosin Hcl) 0.4 Mg Cap, 0.4 MG PO QPM for 30 Days, MG 08/05/24 Famotidine (Famotidine) 20 Mg Tab, 20 MG PO DAILY for 30 Days, MG 08/05/24 Aspirin (Aspir-Low) 81 Mg Tab, 81 MG PO DAILY for 30 Days, MG 08/05/24 Atorvastatin Calcium (ATORVASTATIN CALCIUM) 80 Mg Tab, 1 TAB PO DAILY, #30 TAB 5 Refills 08/05/24 Donepezil Hydrochloride (DONEPEZIL HCL) 5 Mg Tab, 5 MG PO DAILY for 30 Days, MG 08/05/24 Amlodipine Besylate (Amlodipine Besylate) 5 Mg Tab, 10 MG PO DAILY for 30 Days, MG 08/05/24 Meclizine HCl (Meclizine Hydrochloride) 25 Mg Tab, 1 TAB PO TID PRN 05/11/24 Hydrocodone-Acetaminophen (Hydrocodone Bitartrate/AC 7.5-325 mg) 1 Tab Tab, 1 TAB PO Q12HP PRN for PAIN SCALE 1 THRU 6, TAB 02/26/24 Cyclobenzaprine Hcl (Cyclobenzaprine Hcl) 10 Mg Tab, 10 MG PO Q12HP PRN for FOR MUSCLE SPASM for 30 Days, MG 02/26/24 Current Medications Current Medications Medications (Trade) Dose Ordered Sig/Georgie Route PRN Reason Start Time Stop Time Status Last Admin Ondansetron HCl (Zofran) 4 mg Q4HPRN PRN IV NAUSEA / VOMITING 08/05/24 02:45 Acetaminophen/ Hydrocodone Bitart ([place] 5/325MG Tab) 1 tab Q4HPRN PRN PO MODERATE PAIN (4-6 PAIN SCALE) 08/05/24 02:45 08/05/24 03:53 Acetaminophen (Tylenol Tablet) 650 mg Q6HP PO 08/05/24 06:00 08/05/24 11:50 Docusate Sodium (Colace Capsule) 100 mg BIDPRN PRN PO FOR CONSTIPATION 08/05/24 02:45 Albuterol (Ventolin Medneb) 2.5 mg Q4HPRN PRN NEB SHORTNESS OF BREATH 08/05/24 03:15 08/05/24 10:06 Ipratropium [place] (Atrovent Medneb) 0.5 mg Q4HPRN PRN NEB SHORTNESS OF BREATH 08/05/24 03:15 08/05/24 10:06 Aspirin 81 mg DAILY PO 08/05/24 10:00 08/05/24 09:41 Atorvastatin Calcium (Lipitor) 80 mg HS PO 08/05/24 22:00 Meclizine HCl (Antivert Tablet) 25 mg Q6HPRN PRN PO DIZZINESS 08/05/24 03:15 Famotidine (Pepcid Tablet) 20 mg DAILY PO 08/05/24 10:00 08/05/24 09:41 Enoxaparin Sodium (Lovenox) 40 mg DAILY SC 08/05/24 10:00 08/05/24 09:42 Review of Systems Constitutional: No: Fever, Chills, Sweats, Weakness, Malaise, Other Eyes: No: Pain, Vision change, Conjunctivae inflammation, Eyelid inflammation, Other, Redness ENT: No: Ear pain, Ear discharge, Nose pain, Nose discharge, Nose congestion, Mouth pain, Mouth swelling, Throat pain, Throat swelling, Other Respiratory: No: Cough, Dry, Shortness of breath, SOB with exertion, Wheezing, Hemoptysis, Pleuritic Pain, Sputum, Wheezing, Other Cardiovascular: ; No: Chest Pain Palpitations, Orthopnea, Paroxysmal Noc. D yspnea, Edema, Lt Headedness, Other Gastrointestinal: No: Nausea, Vomiting, Abdominal Pain, Diarrhea, Constipation, Melena, Hematochezia, Other Genitourinary: No Dysuria, No Frequency, No Incontinence, No Hematuria, No Retention, No Other Musculoskeletal: neck pain; No: other, shoulder pain, arm pain, back pain, hand pain, leg pain, foot pain Skin: No: Rash, Lesions, Jaundice, Bruising, Other Neurological: Other (Dizziness, headache.); No: Weakness, Numbness, Incoordination, Change in speech, Confusion, Seizures Vital Signs Vital Signs Date Time Temp Pulse Resp B/P (MAP) Pulse Ox O2 Delivery O2 Flow Rate FiO2 08/05/24 10:12 51 14 100 08/05/24 10:06 Room Air* 0 21 08/05/24 09:00 97.4 118/62 (80) 97.4 Physical Exam GENERAL: Alert and oriented x 3. No acute distress. EYES: PERRL, EOMI. Anicteric. HENT: Moist mucous membranes. LUNGS: Clear to auscultation bilaterally. CARDIOVASCULAR: Regular rate and rhythm. ABDOMEN: Soft, nontender and nondistended. EXTREMITIES: No edema. NEUROLOGIC: No focal neurological deficits. SKIN: Warm, dry. Labs/Diagnostic Data Labs Test 08/05/24 06:05 08/04/24 21:42 08/04/24 18:30 Range/Units White Blood Count 7.9 4.4-10.8 10^3/uL Red Blood Count 4.04 L 4.5-5.90 10^6/uL Hemoglobin 13.0 L 13.5-17.5 g/dL Hematocrit 38.5 L 41.0-53.0 % Mean Corpuscular Volume 95.3 80.0-100.0 fL Mean Corpuscular Hemoglobin 32.3 H 28.0-32.0 pg Mean Corpuscular Hemoglobin Concent 33.9 32.0-36.0 g/dL Red Cell Distribution Width 14.3 11.8-14.3 % Platelet Count 268 140-450 10^3/uL Mean Platelet Volume 6.9 6.9-10.8 fL Neutrophils (%) (Auto) 49.3 37.0-80.0 % Lymphocytes (%) (Auto) 33.9 10.0-50.0 % Monocytes (%) (Auto) 10.2 0.0-12.0 % Eosinophils (%) (Auto) 5.9 0.0-7.0 % Basophils (%) (Auto) 0.7 0.0-2.0 % Neutrophils # (Auto) 3.9 1.6-8.6 10 ^3/uL Lymphocytes # (Auto) 2.7 0.4-5.4 10 ^3/uL Monocytes # (Auto) 0.8 0-1.3 10 ^3/uL Eosinophils # (Auto) 0.5 0-0.8 10 ^3/uL Basophils # (Auto) 0.1 0-0.2 10 ^3/uL Nucleated Red Blood Cells 0.1 % Sodium Level 144 136-145 mmol/L Potassium Level 4.4 3.5-5.1 mmol/L Chloride Level 110 H 98-107 mmol/L Carbon Dioxide Level 26 20-31 mmol/L Anion Gap 8 5-15 Blood Urea Nitrogen 18 9-23 mg/dL Creatinine 1.06 0.700-1.30 mg/dL Glomerular Filtration Rate Calc 74 >90 mL/min BUN/Creatinine Ratio 17.0 10.0-20.0 Serum Glucose 82 74-106 mg/dL Hemoglobin A1c 5.3 <5.7 % A1C Calcium Level 9.7 8.7-10.4 mg/dL Magnesium Level 2.1 1.6-2.6 mg/dL Total Bilirubin 0.4 0.2-1.0 mg/dL Aspartate Amino Transferase (AST) 23 <34 U/L Alanine Aminotransferase (ALT) 20 7-40 U/L Alkaline Phosphatase 83 46-116 U/L Total Protein 6.1 5.7-8.2 g/dL Albumin 4.1 3.2-4.8 g/dL Triglycerides Level 45 < 150 mg/dL Cholesterol Level 114 < 200 mg/dL LDL Cholesterol 48 < 100 mg/dL HDL Cholesterol 51 40-59 mg/dL Thyroid Stimulating Hormone (TSH) 2.21 0.55-4.78 uIU/mL POC Glucose 116 H 70-106 mg/dl Urine Color Light-yellow Yellow Urine Clarity Clear Clear Urine pH 6.0 5.0-9.0 Urine Specific [place] 1.018 1.001-1.035 Urine Protein Negative Negative Urine Ketones Negative Negative Urine Blood Negative Negative /uL Urine Nitrite Negative Negative Urine Bilirubin Negative Negative Urine Urobilinogen Normal Negative mg/dL Urine Leukocyte Esterase Negative Negative /uL Urine RBC 1 0 - 3 /hpf Urine Microscopic WBC < 1 0-3 /HPF Urine Squamous Epithelial Cells None seen <5 /hpf Urine Bacteria None seen None Seen /hpf Urine Glucose Normal Normal mg/dL Assessment Sinus bradycardia, possible WAP. Dizziness, vertigo. HTN. Plan/Recommendation I agree with your ongoing assessment and care of plan. Patient has been seen by Charli Persaud NP on my behalf, him and I discussed the plan with the patient. Continue telemetry monitoring. No signs of significant pauses on monitor. Positive chronotropic response while getting up out of bed. Avoid AV hilda blockers. Patient with history of event monitoring [facility]. Patient with previous stress test negative 05/2024. Echo pending. Carotid Doppler pending. Continued on meclizine. BP stable off meds, continue monitoring. Aspirin, Lipitor. DVT prophylactics. [place] for pain management. Additional plan as per the hospital course. Plan discussed with: Patient NYHA Physical activity limitations: NA Date of Service: Aug 05, 2024 Billing Provider: LAZ MACIAS MD Cardiology Common Codes: 17420-[id number] INP/OBS CARE (High) Cardiology Consultation Codes: [id number] CONSULT <45MIN LAZ MACIAS MD Aug 05, 2024 14:03
[2024-08-05] MEDS ORDERED: NITROGLYCERIN 0.4 MG SL TAB SL PRN (18:30)
[2024-08-05 19:20] LABS: Alanine Aminotransferase 28 U/L (7-40); Albumin 4.8 g/dL (3.2-4.8); Alkaline Phosphatase 100 U/L (46-116); Anion Gap 10 (5-15); BUN/Creatinine Ratio 20.4 (10.0-20.0); Bilirubin, Total 0.5 mg/dL (0.2-1.0); Blood Urea Nitrogen 20 mg/dL (9-23); Calcium 9.7 mg/dL (8.7-10.4); Carbon Dioxide 30 mmol/L (20-31); Chloride 106 mmol/L (98-107); Potassium 4.4 mmol/L (3.5-5.1); Total Protein 6.9 g/dL (5.7-8.2)
[2024-08-05 19:24] LABS: Glucose 130 mg/dL (74-106); Sodium 146 mmol/L (136-145)
[2024-08-05] MEDS: MECLIZINE HCL 25 MG TAB PO PRN (20:37)
[2024-08-05] MEDS: ATORVASTATIN 20 MG TAB PO SCH (22:07)
--- NOTE | 2024-08-05 23:30 | DVHPN2 ---
Subjective The patient is seen and examined at bedside. Denied any dizziness. CT head done. Reviewed: Care Plan, H&P, Labs, Medications, Previous Orders, Radiology Changes from previous H/P or p: No Changes Objective Vitals Vital Signs Date Time Temp Pulse Resp B/P (MAP) Pulse Ox O2 Delivery O2 Flow Rate FiO2 08/05/24 21:48 51 16 100 08/05/24 21:40 Room Air 0.0 08/05/24 21:40 21 08/05/24 21:00 98.4 132/75 (94) 98.4 155/74 (101) 164/81 (108) Intake/Output Intake and Output 08/05/24 07:00 Intake Total 100 ml Output Total 225 ml Balance -125 ml Intake Oral 100 ml Output Urine Total 225 ml General Appearance: Alert, Oriented X3, Cooperative, No acute distress HEENT: Atraumatic, PERRLA, EOMI, Mucous membr. moist/pink Neck: Supple Lungs: Clear to auscultation, Normal air movement Cardiovascular: Regular rate, Normal S1, Normal S2, No murmurs, Gallops, Rubs Abdomen: Normal bowel sounds, Soft, No tenderness Neuro: Cranial nerves 3-12 NL Psych/Mental Status: Mental status NL Medications Current Medications Medications Dose Ordered Sig/Georgie Route Start Time Stop Time Status Last Admin Dose Admin Ondansetron HCl 4 mg Q4HPRN PRN IV 08/05/24 02:45 Acetaminophen/ Hydrocodone Bitart 1 tab Q4HPRN PRN PO 08/05/24 02:45 08/05/24 18:42 1 TAB Acetaminophen 650 mg Q6HP PO 08/05/24 06:00 08/05/24 11:50 650 MG Docusate Sodium 100 mg BIDPRN PRN PO 08/05/24 02:45 Albuterol 2.5 mg Q4HPRN PRN NEB 08/05/24 03:15 08/05/24 21:42 2.5 MG Ipratropium [place] 0.5 mg Q4HPRN PRN NEB 08/05/24 03:15 08/05/24 21:42 0.5 MG Aspirin 81 mg DAILY PO 08/05/24 10:00 08/05/24 09:41 81 MG Atorvastatin Calcium 80 mg HS PO 08/05/24 22:00 08/05/24 22:07 80 MG Meclizine HCl 25 mg Q6HPRN PRN PO 08/05/24 03:15 08/05/24 20:37 25 MG Famotidine 20 mg DAILY PO 08/05/24 10:00 08/05/24 09:41 20 MG Enoxaparin Sodium 40 mg DAILY SC 08/05/24 10:00 08/05/24 09:42 40 MG Nitroglycerin 0.4 mg Q5MINP PRN SL 08/05/24 18:30 Laboratory Results Laboratory Tests 08/05/24 06:05 08/05/24 18:45 Chemistry Test 08/05/24 06:05 08/05/24 18:45 Albumin 4.1 g/dL (3.2-4.8) 4.8 g/dL (3.2-4.8) Calcium Level 9.7 mg/dL (8.7-10.4) 9.7 mg/dL (8.7-10.4) Magnesium Level 2.1 mg/dL (1.6-2.6) Total Protein 6.1 g/dL (5.7-8.2) 6.9 g/dL (5.7-8.2) Lipid panel Test 08/05/24 06:05 Cholesterol Level 114 mg/dL (< 200) HDL Cholesterol 51 mg/dL (40-59) Triglycerides Level 45 mg/dL (< 150) LFT Test 08/05/24 06:05 08/05/24 18:45 Alanine Aminotransferase (ALT) 20 U/L (7-40) 28 U/L (7-40) Alkaline Phosphatase 83 U/L (46-116) 100 U/L (46-116) Aspartate Amino Transferase (AST) 23 U/L (<34) 26 U/L (<34) Total Bilirubin 0.4 mg/dL (0.2-1.0) 0.5 mg/dL (0.2-1.0) HgA1c, TSH Test 08/05/24 06:05 Hemoglobin A1c 5.3 % A1C (<5.7) Thyroid Stimulating Hormone (TSH) 2.21 uIU/mL (0.55-4.78) Urinalysis Test 08/04/24 18:30 Urine Color Light-yellow (Yellow) Urine Clarity Clear (Clear) Urine pH 6.0 (5.0-9.0) Urine Specific [place] 1.018 (1.001-1.035) Urine Protein Negative (Negative) Urine Ketones Negative (Negative) Urine Blood Negative /uL (Negative) Urine Nitrite Negative (Negative) Urine Bilirubin Negative (Negative) Urine Urobilinogen Normal mg/dL (Negative) Urine Leukocyte Esterase Negative /uL (Negative) Urine RBC 1 /hpf (0 - 3) Urine Microscopic WBC < 1 /HPF (0-3) Urine Squamous Epithelial Cells None seen /hpf (<5) Urine Bacteria None seen /hpf (None Seen) Urine Glucose Normal mg/dL (Normal) Labs and/or images reviewed: Labs reviewed by me Assessment/Plan Assessment/Plan # dizziness, ? Symptomatic bradycardia #Moderate volume colonic stool. #Moderate colonic stool. #Nonspecific diffuse urinary bladder wall thickening. #hypertension #dyslipidemia Continuing current management. CT head is negative for acute CVA. Cardiology evaluation for bradycardia showed no further intervention . The patient had a recent cardiac stress test done in May 2024 showed negative stress test. I plan to discharge this patient home however he refused to go home. He stated now that he had chest pain. I am going to call Dr. Rosa Romo cardiology to re- evaluate the patient. EKG showed no change. Continuing meclizine p.r.n. for dizziness This medical document was created using an electronic medical record system with [employer] direct computerized dictation system. Although this document has been carefully reviewed, there may still be some phonetic and typographical errors. These areas are purely typographical due to imperfections of the software programs, and do not reflect any compromise in the patient's medical care. Plan discussed with: Patient My Orders Orders - KENDELL FABIAN MD Procedure Category Date Status Time Discharge DISCHARGE 08/05/24 Transmitted 15:52 Date of Service: Aug 05, 2024 Billing Provider: KENDELL FABIAN MD Common Visit Codes: [id number] INP/OBS CARE(HIGH) KENDELL FABIAN MD Aug 05, 2024 23:30
[2024-08-06] VITALS (10 sets, daily range): BP systolic 126–147; BP diastolic 69–93; PULSE 49–84; RESP 16–20; TEMP 97.6–98.2; O2SAT 96–100
[2024-08-06 06:44] LABS: Potassium 3.8 mmol/L (3.5-5.1); Sodium 144 mmol/L (136-145)
[2024-08-06 06:45] LABS: Anion Gap 11 (5-15); Calcium 10.1 mg/dL (8.7-10.4); Carbon Dioxide 26 mmol/L (20-31)
[2024-08-06 06:47] LABS: Chloride 107 mmol/L (98-107)
[2024-08-06 06:50] LABS: Glucose 80 mg/dL (74-106)
[2024-08-06 06:51] LABS: BUN/Creatinine Ratio 21.7 (10.0-20.0); Blood Urea Nitrogen 18 mg/dL (9-23)
--- NOTE | 2024-08-06 14:48 | DVHPNRES ---
Progress Note Date Seen: Aug 06, 2024 Resident Creating Document: GILMER BLANCO RESIDENT Medical Necessity Reason Pt with a Central, PICC or Fol: No Subjective Review of Systems Patient is complaining of SOB. Repeat troponin is negative Objective vital signs Vital Sign Date Time Temp Pulse Resp B/P (MAP) Pulse Ox O2 Delivery O2 Flow Rate FiO2 08/06/24 13:00 97.6 49 16 134/74 (94) 100 97.6 08/06/24 08:00 Room Air* 0 21 Total Intake and Output 08/05/24 08/05/24 08/06/24 14:59 22:59 06:59 Intake Total 1840 ml 550 ml Output Total 700 ml 900 ml Balance 1140 ml -350 ml medications Current Medications Medications Dose Ordered Sig/Georgie Route Start Time Stop Time Status Last Admin Dose Admin Ondansetron HCl 4 mg Q4HPRN PRN IV 08/05/24 02:45 Acetaminophen/ Hydrocodone Bitart 1 tab Q4HPRN PRN PO 08/05/24 02:45 08/06/24 05:58 1 TAB Acetaminophen 650 mg Q6HP PO 08/05/24 06:00 08/06/24 11:47 650 MG Docusate Sodium 100 mg BIDPRN PRN PO 08/05/24 02:45 Albuterol 2.5 mg Q4HPRN PRN NEB 08/05/24 03:15 08/05/24 21:42 2.[address] [place] 0.5 mg Q4HPRN PRN NEB 08/05/24 03:15 08/05/24 21:42 0.5 MG Aspirin 81 mg DAILY PO 08/05/24 10:00 08/06/24 09:51 81 MG Atorvastatin Calcium 80 mg HS PO 08/05/24 22:00 08/05/24 22:07 80 MG Meclizine HCl 25 mg Q6HPRN PRN PO 08/05/24 03:15 08/06/24 09:50 25 MG Famotidine 20 mg DAILY PO 08/05/24 10:00 08/06/24 09:50 20 MG Enoxaparin Sodium 40 mg DAILY SC 08/05/24 10:00 08/06/24 09:51 40 MG Nitroglycerin 0.4 mg Q5MINP PRN SL 08/05/24 18:30 Examination General Appearance: Alert, Oriented X3, Cooperative, No acute distress HEENT: Atraumatic, PERRLA, EOMI, Mucous membr. moist/pink Neck: Supple Lungs: Clear to auscultation, Normal air movement Cardiovascular: Regular rate, Normal S1, Normal S2, No murmurs, Gallops, Rubs Abdomen: Normal bowel sounds, Soft, No tenderness Neuro: Cranial nerves 3-12 NL Psych/Mental Status: Mental status NL laboratory and microbiology Laboratory Tests 08/06/24 04:48 08/05/24 06:05 Test 08/06/24 04:48 Range/Units Serum Glucose 80 74-106 mg/dL Labs and/or images reviewed: Labs reviewed by me, Image(s) reviewed by me Problem List/Assessment/Plan Problem List/Assessment/Plan # dizziness, ? Symptomatic bradycardia # Sinus bradycardia, possible WAP # Dizziness, vertigo EKG Tele monitoring Tropes Echo Cardiology consult head CT- Negative [place] Hallpike negative #Constipation with moderate stool burden -seen on CT - stool softeners #Nonspecific diffuse urinary bladder wall thickening. -seen on CT #Hypertension -normal Bp - resume home meds #Dyslipidemia - resume home meds #History of stroke - no new neurological deficits; resume home meds #Back pain - resume home meds #GERD resume home meds #PAD status post angiogram - resume home meds #COPD; not in exacerbation -stable #PTSD -no suicide ideation/plans; resume home meds #possible liver cirrhosis -CMP #Insomnia -resume home meds #Possible obstructive sleep apnea -CPAP at night Goals of care discussed with the patient for 20 minutes; full code Case discussion with Dr Aguirre Plan discussed with: Patient, Other (Nurse) Addendum Addendum Addendum I was physically present for the camacho portions of the service provided to patient by THE RESIDENT. I have reviewed the documentation, discussed the case with resident and agree with the resident's documentation except as noted. Also the patient's clinical case was discussed with the patient's nurse. This medical document was created using an electronic medical record system with computerized dictation system. Although this document has been carefully reviewed, there might still be some phonetic and typographical errors. These areas are purely typographical due to imperfections of the software programs, and do not reflect any compromise in the patient's medical care. Late signature. Date of Service: Aug 06, 2024 Billing Provider: BRITTANY GREGORIO MD Common Visit Codes: [id number] INP/OBS CARE(HIGH) Secondary Visit Codes: [id number] CARE PLAN 30 MINUTES (20 minutes) GILMER BLANCO RESIDENT Aug 06, 2024 14:48 BRITTANY GREGORIO MD Aug 07, 2024 13:41
--- NOTE | 2024-08-06 23:07 | DVHPN2 ---
Progress Note - Dictate Date Seen: Aug 06, 2024 Medical Necessity Reason Pt with a Central, PICC or Fol: No Subjective Patient was seen and evaluated in follow up. Patient is complaining of SOB. Repeat troponin is negative. The patient was refusing medication earlier. Telemetry reviewed. vital signs Vital Sign Date Time Temp Pulse Resp B/P (MAP) Pulse Ox O2 Delivery O2 Flow Rate FiO2 08/06/24 20:00 Room Air* 0 21 08/06/24 18:35 51 16 100 08/06/24 17:00 98.2 126/70 (88) 98.2 Total Intake and Output 08/05/24 08/05/24 08/06/24 14:59 22:59 06:59 Intake Total 1840 ml 550 ml Output Total 700 ml 900 ml Balance 1140 ml -350 ml medications Current Medications Medications Dose Ordered Sig/Georgie Route Start Time Stop Time Status Last Admin Dose Admin Ondansetron HCl 4 mg Q4HPRN PRN IV 08/05/24 02:45 Acetaminophen/ Hydrocodone Bitart 1 tab Q4HPRN PRN PO 08/05/24 02:45 08/06/24 18:56 1 TAB Acetaminophen 650 mg Q6HP PO 08/05/24 06:00 08/06/24 11:47 650 MG Docusate Sodium 100 mg BIDPRN PRN PO 08/05/24 02:45 Albuterol 2.5 mg Q4HPRN PRN NEB 08/05/24 03:15 08/06/24 19:07 2.5 MG Ipratropium [place] 0.5 mg Q4HPRN PRN NEB 08/05/24 03:15 08/06/24 19:07 0.5 MG Aspirin 81 mg DAILY PO 08/05/24 10:00 08/06/24 09:51 81 MG Atorvastatin Calcium 80 mg HS PO 08/05/24 22:00 08/05/24 22:07 80 MG Meclizine HCl 25 mg Q6HPRN PRN PO 08/05/24 03:15 08/06/24 17:59 25 MG Famotidine 20 mg DAILY PO 08/05/24 10:00 08/06/24 09:50 20 MG Enoxaparin Sodium 40 mg DAILY SC 08/05/24 10:00 08/06/24 09:51 40 MG Nitroglycerin 0.4 mg Q5MINP PRN SL 08/05/24 18:30 objective GENERAL: Alert and oriented x 3. No acute distress. EYES: PERRL, EOMI. Anicteric. HENT: Moist mucous membranes. LUNGS: Clear to auscultation bilaterally. CARDIOVASCULAR: Regular rate and rhythm. ABDOMEN: Soft, nontender and nondistended. EXTREMITIES: No edema. NEUROLOGIC: No focal neurological deficits. SKIN: Warm, dry. laboratory and microbiology Laboratory Tests 08/06/24 04:48 08/05/24 06:05 Test 08/06/24 04:48 Range/Units Serum Glucose 80 74-106 mg/dL Problem List Sinus bradycardia, possible WAP. Dizziness, vertigo. HTN. Assessment/Plan Continued all current supportive medical care. Aspirin, Lipitor. DVT prophylactics. Nitro SL. [place] for pain management. Additional plan as per the hospital course. Plan discussed with: Patient LAZ MACIAS MD Aug 06, 2024 21:34
[2024-08-07] VITALS (12 sets, daily range): BP systolic 0–165; BP diastolic 66–89; PULSE 47–95; RESP 16–20; TEMP 97.6–98.1; O2SAT 94–100
[2024-08-07 06:03] LABS: Hematocrit 37.3 % (41.0-53.0); Hemoglobin 12.9 g/dL (13.5-17.5); Mean Corpuscular Hemoglobin 32.8 pg (28.0-32.0); Mean Corpuscular Volume 95.0 fL (80.0-100.0); Nucleated Red Blood Cells % 0.1 %
[2024-08-07 06:15] LABS: Potassium 4.3 mmol/L (3.5-5.1); Sodium 142 mmol/L (136-145)
[2024-08-07 06:16] LABS: Anion Gap 7 (5-15); Carbon Dioxide 28 mmol/L (20-31)
[2024-08-07 06:17] LABS: Calcium 9.2 mg/dL (8.7-10.4)
[2024-08-07 06:21] LABS: BUN/Creatinine Ratio 17.7 (10.0-20.0); Blood Urea Nitrogen 17 mg/dL (9-23); Glucose 87 mg/dL (74-106)
[2024-08-07 06:31] LABS: Chloride 107 mmol/L (98-107)
[2024-08-07] MEDS ORDERED: ONDANSETRON ODT 4 MG TAB PO PRN (15:30)
--- NOTE | 2024-08-07 17:39 | DVHDSRES ---
Discharge Summary Date of Admission Resident Creating Document: TAPAN YA RESIDENT Aug 04, 2024 at 22:16 Date of Discharge: Aug 07, 2024 Admitting Diagnosis Dizziness Labs/Diagnostic Data: Laboratory Results Test 08/07/24 05:18 08/06/24 04:48 08/05/24 18:45 08/05/24 06:05 White Blood Count 8.1 10^3/uL (4.4-10.8) Red Blood Count 3.93 10^6/uL (4.5-5.90) Hemoglobin 12.9 g/dL (13.5-17.5) Hematocrit 37.3 % (41.0-53.0) Mean Corpuscular Volume 95.0 fL (80.0-100.0) Mean Corpuscular Hemoglobin 32.8 pg (28.0-32.0) Mean Corpuscular Hemoglobin Concent 34.5 g/dL (32.0-36.0) Red Cell Distribution Width 14.2 % (11.8-14.3) Platelet Count 258 10^3/uL (140-450) Mean Platelet Volume 7.0 fL (6.9-10.8) Neutrophils (%) (Auto) 50.8 % (37.0-80.0) Lymphocytes (%) (Auto) 33.7 % (10.0-50.0) Monocytes (%) (Auto) 9.0 % (0.0-12.0) Eosinophils (%) (Auto) 5.9 % (0.0-7.0) Basophils (%) (Auto) 0.6 % (0.0-2.0) Neutrophils # (Auto) 4.1 10 ^3/uL (1.6-8.6) Lymphocytes # (Auto) 2.7 10 ^3/uL (0.4-5.4) Monocytes # (Auto) 0.7 10 ^3/uL (0-1.3) Eosinophils # (Auto) 0.5 10 ^3/uL (0-0.8) Basophils # (Auto) 0.1 10 ^3/uL (0-0.2) Nucleated Red Blood Cells 0.1 % Sodium Level 142 mmol/L (136-145) Potassium Level 4.3 mmol/L (3.5-5.1) Chloride Level 107 mmol/L (98-107) Carbon Dioxide Level 28 mmol/L (20-31) Anion Gap 7 (5-15) Blood Urea Nitrogen 17 mg/dL (9-23) Creatinine 0.96 mg/dL (0.700-1.30) Glomerular Filtration Rate Calc 83 mL/min (>90) BUN/Creatinine Ratio 17.7 (10.0-20.0) Serum Glucose 87 mg/dL (74-106) Calcium Level 9.2 mg/dL (8.7-10.4) Troponin I High Sensitivity 5 ng/L (</=54) Total Bilirubin 0.5 mg/dL (0.2-1.0) Aspartate Amino Transferase (AST) 26 U/L (<34) Alanine Aminotransferase (ALT) 28 U/L (7-40) Alkaline Phosphatase 100 U/L (46-116) Total Protein 6.9 g/dL (5.7-8.2) Albumin 4.8 g/dL (3.2-4.8) Hemoglobin A1c 5.3 % A1C (<5.7) Magnesium Level 2.1 mg/dL (1.6-2.6) Triglycerides Level 45 mg/dL (< 150) Cholesterol Level 114 mg/dL (< 200) LDL Cholesterol 48 mg/dL (< 100) HDL Cholesterol 51 mg/dL (40-59) Vitamin B12 Level 534 pg/mL (211-911) Folic Acid 17.33 ng/mL (>5.38) Thyroid Stimulating Hormone (TSH) 2.21 uIU/mL (0.55-4.78) Test 08/04/24 21:42 08/04/24 18:30 POC Glucose 116 mg/dl (70-106) Urine Color Light-yellow (Yellow) Urine Clarity Clear (Clear) Urine pH 6.0 (5.0-9.0) Urine Specific [place] 1.018 (1.001-1.035) Urine Protein Negative (Negative) Urine Ketones Negative (Negative) Urine Blood Negative /uL (Negative) Urine Nitrite Negative (Negative) Urine Bilirubin Negative (Negative) Urine Urobilinogen Normal mg/dL (Negative) Urine Leukocyte Esterase Negative /uL (Negative) Urine RBC 1 /hpf (0 - 3) Urine Microscopic WBC < 1 /HPF (0-3) Urine Squamous Epithelial Cells None seen /hpf (<5) Urine Bacteria None seen /hpf (None Seen) Urine Glucose Normal mg/dL (Normal) Other Laboratory Tests 08/07/24 05:18 Brief Hx & Hospital Course: Patient is a 74-year-old male with prior medical history of hypertension, dyslipidemia, stroke, back pain, GERD, PAD post angiogram, COPD, AFib on Eliquis, possible pulmonary nodules, PTSD, possible liver cirrhosis, possible NGOZI who presented to the ED with chief complaint of dizziness and vertigo for previous 2 days associated with headache and palpitations. Denied chest pain, shortness of breath, vomiting. On exam patient referred dizziness, but overall physical exam unremarkable. EKG performed in the ED showed possible premature atrial contraction. CT ABD PEL shows moderate volume colonic stool, moderate colonic stool, severe emphysema. Nonspecific diffuse urinary bladder wall thickening. Patient admitted for further monitoring. On admission patient continued to refer dizziness Marlo-Hallpike maneuver at the time negative, meclizine started, head CT ordered, carotid Doppler ultrasound was ordered, and home medications were continued. Possible symptomatic bradycardia considered. Patient evaluated by Cardiology who stated EKG reviewed and shows sinus rhythm with PACs at 59 beats per minute, possible WAP. Negative Stress test and echocardiogram from previous hospitalization in 05/2024 reviewed showing sinus rhythm, right atrial and ventricular enlargement, mild LVH, EF: 55-60%. Troponins were negative. Cardiology recommended continue on telemetry avoid AV hilda blockers, and outpatient follow-up. CT head shows unchanged size of the left frontal meningioma when compared to 03/17/2024. Mild chronic schematic white matter change. Old small right thalamic infarct. Carotid Doppler showed no evidence of hemodynamically significant CCA or ICA stenosis and calcified plaque of the bilateral carotid bifurcations. Patient was planned for discharge on 08/05 however patient refused to go and stated that he had chest pain and shortness of breath at the time. Troponins were negative. Patient evaluated by respiratory therapy who determined that patient was not in respiratory distress and had no indication of treatment as well as patient denying treatment, as well as patient refusing other medications. Patient evaluated again by Cardiology who stated to continue current plan. Patient evaluated today states he is still dizzy, however due to overall stable condition plan is to discharge home. Consults/Reason for consult Cardiology consulted due to possible symptomatic bradycardia. Operations or Procedures CT CT AB PEL WO CON-NO ORAL OR IV History: dizzy Comparison Study: None Technique: Multidetector spiral CT of the abdomen was performed from lung bases to pubic symphysis. Imaging was performed without IV contrast. Axial, coronal and sagittal multiplanar reformats were obtained from the axial data set by the technologist. Radiation Dose : 1. Abdomen/Pelvis: CTDIvol 5.96 mGy, DLP 285.73 mGy*cm. Findings: Evaluation of solid organs is limited due to lack of intravenous contrast use. Lung Bases: Severe emphysema. Liver: The liver is normal in size. No focal lesions. Gallbladder and Biliary Tree: Unremarkable Spleen: Unremarkable Pancreas: The pancreas is grossly normal in appearance. Adrenal Glands: Unremarkable Kidneys: No hydronephrosis. Punctate 0.1 cm nonobstructing stone in the mid right kidney. Left renal cyst measures 2.1 cm. Bladder: Diffuse urinary bladder wall thickening. Bowel: Small hiatal hernia. Moderate colonic stool. The appendix is not visualized; however, no secondary findings of acute appendicitis identified. Ascites: Absent Lymphadenopathy: No mesenteric, retroperitoneal or periportal lymphadenopathy. Abdominal Wall and Mesentery: Unremarkable. Vasculature: Bilateral femoral femoral bypass graft. The visualized abdominal aorta is normal in size and caliber. There is extensive atherosclerotic calcification of the aorta and its branches. Evaluation of abdominal and pelvic vessels is limited due to lack of intravenous contrast. Pelvic Organs: Unremarkable Musculoskeletal: No aggressive focal bony lesions, acute fractures or dislocation. IMPRESSION: Moderate volume colonic stool. Moderate colonic stool. Severe emphysema. Nonspecific diffuse urinary bladder wall thickening. This can be seen in cystitis or chronic bladder outlet obstruction. US CAROTID DOPPLER CLINICAL INDICATION: Dizziness TECHNIQUE: Multiple grayscale, color Doppler and spectral Doppler ultrasound images were obtained throughout both carotid systems. COMPARISON: None FINDINGS: RIGHT: CCA PSV: 74 cm/s ECA PSV: 64 cm/s ICA PSV: 103 cm/s ICA EDV: 39 cm/s ICA/CCA Ratio: 1.4 Vertebral artery: Patent, antegrade flow. Calcified plaque at the carotid bifurcation. Grayscale images demonstrate no visible stenosis. Spectral analysis demonstrates no hemodynamically significant CCA or ICA stenosis. LEFT: CCA PSV: 75 cm/s ECA PSV: 45 cm/s ICA PSV: 109 cm/s ICA EDV: 35 cm/s ICA/CCA Ratio: 1.5 Vertebral artery: Patent, antegrade flow. Calcified plaque at the carotid bifurcation. Grayscale images demonstrate no visible stenosis. Spectral analysis demonstrates no hemodynamically significant CCA or ICA stenosis. IMPRESSION: 1. No evidence of hemodynamically significant CCA or ICA stenosis. 2. Calcified plaque of the bilateral carotid bifurcations. CT HEAD WITHOUT CONTRAST INDICATION: persistent dizziness EXAM DATE: 08/05/2024 08:06 AM COMPARISON: CT HEAD WITHOUT CONTRAST on DOS: 03/27/24 RADIATION DOSE: CTDIvol: 53.99 mGy, DLP: 863.9 mGy*cm PROCEDURE: CT scans of the head were obtained from the vertex to the skull base. Sagittal and coronal reconstructions were provided. All CT scans at this medical facility are performed using dose modulation techniques as appropriate to a performed exam including the following: Automated exposure control was utilized; adjustment of the MA and/or KV according to patient size; and use of iterative reconstruction technique. FINDINGS: There is no acute intracranial hemorrhage, extra-axial fluid collection, mass effect, or midline shift. There is a rim partial rim calcified 2.4 x 1.3 cm left frontal extra-axial mass. There is patchy periventricular and subcortical white matter hypoattenuation, nonspecific. 7 mm old right thalamic infarct. Paranasal sinuses and mastoid air cells are clear. Calvarium is intact. IMPRESSION: 1. No acute intracranial findings 2. Unchanged size of the left frontal meningioma when compared to 03/17/2024 3. Mild chronic schematic white matter change 4. Old small right thalamic infarct Condition at Discharge: Stable Final Diagnosis/Problems List Dizziness, ?Possible Symptomatic bradycardia Sinus bradycardia, Possible WAP Constipation with moderate stool burden Nonspecific diffuse urinary bladder wall thickening. Hypertension Dyslipidemia History of stroke Back pain GERD PAD status post angiogram COPD; not in exacerbation PTSD possible liver cirrhosis Insomnia Possible obstructive sleep apnea Discharge Disposition: Home Discharge Instruct/Medications Diet: Cardiac 2g Na,low cholest Activity: No Restrictions, As Tolerated Follow Up/Referral: pcp 1-2 weeks Medications: resume home meds Discharge Statement: "Patient was advised to return to the ER or call 911 if any headaches, dizziness, shortness of breath, chest pain, abdominal pain, bleeding, fevers, or worsening of medical condition. Patient was counseled about treatment plan, medications, possible side effects, patientverbalized understanding. All questions were answered to the best of my ability. This discharge took greater then 30 minutes in planning, reviewing documentation, counseling the patient, and discussing with other team members." ASSESSMENT ASSESSMENT Assessment TAPAN Rojas RESIDENT Aug 07, 2024 17:39
--- NOTE | 2024-08-07 21:57 | DVHPN2 ---
Progress Note - Dictate Date Seen: Aug 07, 2024 Medical Necessity Reason Pt with a Central, PICC or Fol: No Subjective Patient was seen and evaluated in follow up. No overnight events. Patient on room air. CBC and chemistry are unremarkable. Telemetry reviewed. vital signs Vital Sign Date Time Temp Pulse Resp B/P (MAP) Pulse Ox O2 Delivery O2 Flow Rate FiO2 08/07/24 21:00 97.6 54 16 137/69 (91) 98 97.6 137/69 (91) 08/07/24 18:18 Room Air* 0 21 Total Intake and Output 08/06/24 08/06/24 08/07/24 15:00 23:00 07:00 Intake Total 1160 ml 650 ml Output Total 500 ml Balance 660 ml 650 ml medications Current Medications Medications Dose Ordered Sig/Georgie Route Start Time Stop Time Status Last Admin Dose Admin Acetaminophen/ Hydrocodone Bitart 1 tab Q4HPRN PRN PO 08/05/24 02:45 08/07/24 17:37 1 TAB Acetaminophen 650 mg Q6HP PO 08/05/24 06:00 08/06/24 11:47 650 MG Docusate Sodium 100 mg BIDPRN PRN PO 08/05/24 02:45 Albuterol 2.5 mg Q4HPRN PRN NEB 08/05/24 03:15 08/07/24 18:21 2.5 MG Ipratropium [place] 0.5 mg Q4HPRN PRN NEB 08/05/24 03:15 08/06/24 19:07 0.5 MG Aspirin 81 mg DAILY PO 08/05/24 10:00 08/07/24 11:01 81 MG Atorvastatin Calcium 80 mg HS PO 08/05/24 22:00 08/07/24 21:19 80 MG Meclizine HCl 25 mg Q6HPRN PRN PO 08/05/24 03:15 08/07/24 20:44 25 MG Famotidine 20 mg DAILY PO 08/05/24 10:00 08/07/24 11:01 20 MG Enoxaparin Sodium 40 mg DAILY SC 08/05/24 10:00 08/07/24 11:02 40 MG Nitroglycerin 0.4 mg Q5MINP PRN SL 08/05/24 18:30 Ondansetron HCl 4 mg Q8HP PRN PO 08/07/24 15:30 objective GENERAL: Alert and oriented x 3. No acute distress. EYES: PERRL, EOMI. Anicteric. HENT: Moist mucous membranes. LUNGS: Clear to auscultation bilaterally. CARDIOVASCULAR: Regular rate and rhythm. ABDOMEN: Soft, nontender and nondistended. EXTREMITIES: No edema. NEUROLOGIC: No focal neurological deficits. SKIN: Warm, dry. laboratory and microbiology Laboratory Tests 08/07/24 05:18 Test 08/07/24 05:18 Range/Units Serum Glucose 87 74-106 mg/dL Problem List Sinus bradycardia, possible WAP. Dizziness, vertigo. HTN. Assessment/Plan Continued all current supportive medical care. Aspirin, Lipitor. DVT prophylactics. Nitro SL. [place] for pain management. Additional plan as per the hospital course. Plan discussed with: Patient LAZ MACIAS MD Aug 07, 2024 21:57
--- NOTE | 2024-08-07 22:16 | DVHINCON2 ---
Date of service: Aug 07, [address] Francis Reason for Consultation Persistent dizziness/vertigo History of Present Illness Mr. Pond is a 74 years old right-handed gentleman with a history of hypertension, dyslipidemia, anemia, possible liver cirrhosis, stroke with left-sided weakness, sleep apnea can not tolerate CPAP, peripheral arterial disease, the patient was admitted to the [facility] on 08/04/2024 with a chief complaint of headache and dizziness. At that time, he is alert and oriented x3, place a very poor historian. He reports he had stroke, likely the end of 2023 or early 2024, with left-sided weakness, and coincidentally after the stroke, he has daily dizzy spells triggered by lying down, getting up, reason head, but not bending over. He can not further specify the symptoms, but he said he takes meclizine with improved symptoms. He remembers taking clopidogrel at home, but the ER note also mentioned aspirin 81 mg daily, atorvastatin 80 mg daily. He is to see Dr. Romo, a local neurologist He does not know for how long, but he has intermittent swelling feeling and burning pain in the feet. He has not had specific evaluation for this problem yet He has chronic low back pain, he remember having electricity needle study many years ago, but he is not aware of the result. He has been referred to a pain specialist Urinalysis, 08/04/2024: Unremarkable WBC/HB/PLT/MCV, 08/07/2024: 8.1/12/9/258/95 CMP, 08/05/2024: Unremarkable HGB A1c, 08/05/2024: 5.3 TG/HDL/LDL/HDL, 08/05/2024: 54/1 for Vitamin B12, 08/05/2024: 534 Folic acid, 08/05/2024: 17.33 TSH, 08/05/2024: 2.21 CT head, 08/05/2024: 1. No acute intracranial findings 2. Unchanged size of the left frontal meningioma when compared to 03/17/2024 3. Mild chronic schematic white matter change 4. Old small right thalamic infarct Past Medical History Hypertension, dyslipidemia, anemia, possible liver cirrhosis, stroke with left- sided weakness, sleep apnea not tolerate CPAP, peripheral arterial disease, chronic low back pain, the chart mentioned but he he could not confirmed a history atrial fibrillation, diabetes Past Surgical History Right femur-pop bypass, appendectomy, left knee surgery, bunion removal, bilateral hammertoes repair Family History: FH: colon cancer G8 BROTHER FH: emphysema G8 BROTHER FH: heart attack uncles uncles uncles FH: stroke G8 FATHER Family History Coronary artery disease, stroke, COPD, colon cancer Social History He smokes, but denies a history of drug or alcohol abuse Allergies: Coded Allergies: Sulfamethoxazole w/Trimethoprim (Verified Allergy, Intermediate, 02/26/24) Home Meds Active Scripts Budesonide-Formoterol Fumarate (Budesonide/Formoterol Fum 160-4.5 Mcg/Act) 1 Aer Aer, 1 AER IN BID for 30 Days, #1 AER Prov:GLORIA MAS RESIDENT 02/28/24 Albuterol Sulfate (VENTOLIN MDI) 90 Mcg Ih, 90 MCG IN DAILYP PRN for 30 Days, #1 INH Prov:GLORIA MAS RESIDENT 02/28/24 Reported Medications Clopidogrel Bisulfate (CLOPIDOGREL) 75 Mg Tab, 75 MG PO DAILY for 30 Days, MG 08/05/24 Ascorbic Acid (Ascorbic Acid) 500 Mg Tab, 500 MG PO DAILY for 30 Days, MG 08/05/24 Tamsulosin Hcl (Tamsulosin Hcl) 0.4 Mg Cap, 0.4 MG PO QPM for 30 Days, MG 08/05/24 Famotidine (Famotidine) 20 Mg Tab, 20 MG PO DAILY for 30 Days, MG 08/05/24 Aspirin (Aspir-Low) 81 Mg Tab, 81 MG PO DAILY for 30 Days, MG 08/05/24 Atorvastatin Calcium (ATORVASTATIN CALCIUM) 80 Mg Tab, 1 TAB PO DAILY, #30 TAB 5 Refills 08/05/24 Donepezil Hydrochloride (DONEPEZIL HCL) 5 Mg Tab, 5 MG PO DAILY for 30 Days, MG 08/05/24 Amlodipine Besylate (Amlodipine Besylate) 5 Mg Tab, 10 MG PO DAILY for 30 Days, MG 08/05/24 Meclizine HCl (Meclizine Hydrochloride) 25 Mg Tab, 1 TAB PO TID PRN 05/11/24 Hydrocodone-Acetaminophen (Hydrocodone Bitartrate/AC 7.5-325 mg) 1 Tab Tab, 1 TAB PO Q12HP PRN for PAIN SCALE 1 THRU 6, TAB 02/26/24 Cyclobenzaprine Hcl (Cyclobenzaprine Hcl) 10 Mg Tab, 10 MG PO Q12HP PRN for FOR MUSCLE SPASM for 30 Days, MG 02/26/24 Current Medications Current Medications Medications (Trade) Dose Ordered Sig/Georgie Route PRN Reason Start Time Stop Time Status Last Admin Ondansetron HCl (Zofran Po) 4 mg Q8HP PRN PO NAUSEA / VOMITING 08/07/24 15:30 Review of Systems As above, the other systems are negative Vital Signs Vital Signs Date Time Temp Pulse Resp B/P (MAP) Pulse Ox O2 Delivery O2 Flow Rate FiO2 08/07/24 21:00 97.6 54 16 137/69 (91) 98 97.6 137/69 (91) 08/07/24 18:18 Room Air* 0 21 Physical Exam GENERAL EXAM: General: the patient is well developed and nourished. No acute distress. HEENT: Normocephalic, neck is supple, no carotid bruits. No mass. RESPIRATORY: Normal respiratory effort with symmetrical lung expansion. Lungs clear to auscultation. CARDIOVASCULAR: Regular rate and rhythm with no murmurs. S1, S2. ABDOMEN: Soft, nontender, normal bowel sound NEUROLOGICAL: MENTAL STATUS: Awake and alert. Oriented to person, place, time and general circumstances. Poor historian SPEECH, LANGUAGE, HIGHER CORTICAL FUNCTION: no aphasia or dysathria. CRANIAL NERVES: #2: Intact visual gudino to confrontation. The optic discs were sharp. #3,4,6: Pupils are equal, round and reactive. EOMs full and conjugate. No nystagmus. #5: Facial sensation intact in all three divisions bilaterally. Mandibular strength intact. #7: Facial muscles symmetrical and strength intact. #8: Hearing grossly normal to voice. #9,10: Uvula and soft palate rise in the midline. Swallow and voice are normal. #11: Trapezius and sternomastoid strength intact bilaterally. #12: Tongue midline. No fasciculations or atrophy. SENSATION: Sensation to touch and pinprick is diminished distally in the lower extremities MOTOR: Normal tone in the upper and lower extremity. Normal muscle bulk. No fasciculations. No abnormal movements or posturing. Muscle strength of the major groups in the upper extremities is 5/5. Muscle strength of the major groups in the lower extremities is 5/5. REFLEXES: Deep tendon reflexes are symmetrically diminished in the lower extremities. No pathological reflexes. CEREBELLAR/COORDINATION: Finger to nose is normal bilaterally. GAIT/STATION: Unremarkable Labs/Diagnostic Data Labs Test 08/07/24 05:18 08/06/24 04:48 08/05/24 18:45 08/05/24 06:05 Range/Units White Blood Count 8.1 4.4-10.8 10^3/uL Red Blood Count 3.93 L 4.5-5.90 10^6/uL Hemoglobin 12.9 L 13.5-17.5 g/dL Hematocrit 37.3 L 41.0-53.0 % Mean Corpuscular Volume 95.0 80.0-100.0 fL Mean Corpuscular Hemoglobin 32.8 H 28.0-32.0 pg Mean Corpuscular Hemoglobin Concent 34.5 32.0-36.0 g/dL Red Cell Distribution Width 14.2 11.8-14.3 % Platelet Count 258 140-450 10^3/uL Mean Platelet Volume 7.0 6.9-10.8 fL Neutrophils (%) (Auto) 50.8 37.0-80.0 % Lymphocytes (%) (Auto) 33.7 10.0-50.0 % Monocytes (%) (Auto) 9.0 0.0-12.0 % Eosinophils (%) (Auto) 5.9 0.0-7.0 % Basophils (%) (Auto) 0.6 0.0-2.0 % Neutrophils # (Auto) 4.1 1.6-8.6 10 ^3/uL Lymphocytes # (Auto) 2.7 0.4-5.4 10 ^3/uL Monocytes # (Auto) 0.7 0-1.3 10 ^3/uL Eosinophils # (Auto) 0.5 0-0.8 10 ^3/uL Basophils # (Auto) 0.1 0-0.2 10 ^3/uL Nucleated Red Blood Cells 0.1 % Sodium Level 142 136-145 mmol/L Potassium Level 4.3 3.5-5.1 mmol/L Chloride Level 107 98-107 mmol/L Carbon Dioxide Level 28 20-31 mmol/L Anion Gap 7 5-15 Blood Urea Nitrogen 17 9-23 mg/dL Creatinine 0.96 0.700-1.30 mg/dL Glomerular Filtration Rate Calc 83 >90 mL/min BUN/Creatinine Ratio 17.7 10.0-20.0 Serum Glucose 87 74-106 mg/dL Calcium Level 9.2 8.7-10.4 mg/dL Troponin I High Sensitivity 5 </=54 ng/L Total Bilirubin 0.5 0.2-1.0 mg/dL Aspartate Amino Transferase (AST) 26 <34 U/L Alanine Aminotransferase (ALT) 28 7-40 U/L Alkaline Phosphatase 100 46-116 U/L Total Protein 6.9 5.7-8.2 g/dL Albumin 4.8 3.2-4.8 g/dL Hemoglobin A1c 5.3 <5.7 % A1C Magnesium Level 2.1 1.6-2.6 mg/dL Triglycerides Level 45 < 150 mg/dL Cholesterol Level 114 < 200 mg/dL LDL Cholesterol 48 < 100 mg/dL HDL Cholesterol 51 40-59 mg/dL Vitamin B12 Level 534 211-911 pg/mL Folic Acid 17.33 >5.38 ng/mL Thyroid Stimulating Hormone (TSH) 2.21 0.55-4.78 uIU/mL Test 08/04/24 21:42 08/04/24 18:30 Range/Units POC Glucose 116 H 70-106 mg/dl Urine Color Light-yellow Yellow Urine Clarity Clear Clear Urine pH 6.0 5.0-9.0 Urine Specific [place] 1.018 1.001-1.035 Urine Protein Negative Negative Urine Ketones Negative Negative Urine Blood Negative Negative /uL Urine Nitrite Negative Negative Urine Bilirubin Negative Negative Urine Urobilinogen Normal Negative mg/dL Urine Leukocyte Esterase Negative Negative /uL Urine RBC 1 0 - 3 /hpf Urine Microscopic WBC < 1 0-3 /HPF Urine Squamous Epithelial Cells None seen <5 /hpf Urine Bacteria None seen None Seen /hpf Urine Glucose Normal Normal mg/dL Assessment Chronic intermittent dizziness ? Benign paroxysmal positional vertigo ? Secondary to chronic stroke Chronic stroke with good recovery Polyneuropathy, etiology unclear ? Cognitive dysfunction ? Vascular dementia ? Alzheimer disease Plan/Recommendation Monitoring Supportive treatment Telemetry Aspirin 81 mg daily Lipitor 80 mg daily DVT prophylaxis/Lovenox GI prophylax Meclizine p.r.n., I have advised him to avoid vertigo product as much as possible Dr. Romo on discharge Follow with his PCP BEHZAD on discharge Okay to discharge from neurologic point of view Progress: Poor This medical document was created using an electronic medical record system with [employer] computerized dictation system. Although this document has been carefully reviewed, there may still be some phonetic and typographical errors. These areas are purely typographical due to imperfections of the software programs, and do not reflect any compromise in the patient's medical care. Plan discussed with: Other SUNNI VELIZ MD Aug 07, 2024 22:16
[2024-08-08] VITALS (12 sets, daily range): BP systolic 93–158; BP diastolic 65–91; PULSE 49–83; RESP 16–20; TEMP 97.6–98.3; O2SAT 95–98
--- NOTE | 2024-08-08 14:43 | DVHPN2 ---
Progress Note - Dictate Date Seen: Aug 08, 2024 Medical Necessity Reason Pt with a Central, PICC or Fol: No Subjective Mr. Pond is a 74 years old right-handed gentleman with a history of hypertension, dyslipidemia, anemia, possible liver cirrhosis, stroke with left- sided weakness, sleep apnea can not tolerate CPAP, peripheral arterial disease, the patient was admitted to the [facility] on 08/04/2024 with a chief complaint of headache and dizziness. I have seen examined the patient, I have talked to his nurse he is doing fine, awake, oriented x3, no new company He is not happy because his dizziness persists and the etiology remained unclear Urinalysis, 08/04/2024: Unremarkable WBC/HB/PLT/MCV, 08/07/2024: 8.1/12/9/258/95 CMP, 08/05/2024: Unremarkable HGB A1c, 08/05/2024: 5.3 TG/HDL/LDL/HDL, 08/05/2024: 54/1 for Vitamin B12, 08/05/2024: 534 Folic acid, 08/05/2024: 17.33 TSH, 08/05/2024: 2.21 CT head, 08/05/2024: 1. No acute intracranial findings 2. Unchanged size of the left frontal meningioma when compared to 03/17/2024 3. Mild chronic schematic white matter change 4. Old small right thalamic infarct vital signs Vital Sign Date Time Temp Pulse Resp B/P (MAP) Pulse Ox O2 Delivery O2 Flow Rate FiO2 08/08/24 13:40 66 126/75 (92) 08/08/24 13:00 98.3 18 97 98.3 08/08/24 08:00 Room Air* 0 21 Total Intake and Output 08/07/24 08/07/24 08/08/24 15:00 23:00 07:00 Intake Total 420 ml 700 ml Output Total 4520 ml Balance -4100 ml 700 ml medications Current Medications Medications Dose Ordered Sig/Georgie Route Start Time Stop Time Status Last Admin Dose Admin Acetaminophen/ Hydrocodone Bitart 1 tab Q4HPRN PRN PO 08/05/24 02:45 08/07/24 22:47 1 TAB Acetaminophen 650 mg Q6HP PO 08/05/24 06:00 08/06/24 11:47 650 MG Docusate Sodium 100 mg BIDPRN PRN PO 08/05/24 02:45 Albuterol 2.5 mg Q4HPRN PRN NEB 08/05/24 03:15 08/07/24 18:21 2.5 MG Ipratropium [place] 0.5 mg Q4HPRN PRN NEB 08/05/24 03:15 08/06/24 19:07 0.5 MG Aspirin 81 mg DAILY PO 08/05/24 10:00 08/08/24 10:16 81 MG Atorvastatin Calcium 80 mg HS PO 08/05/24 22:00 08/07/24 21:19 80 MG Meclizine HCl 25 mg Q6HPRN PRN PO 08/05/24 03:15 08/08/24 10:21 25 MG Famotidine 20 mg DAILY PO 08/05/24 10:00 08/08/24 10:16 20 MG Enoxaparin Sodium 40 mg DAILY SC 08/05/24 10:00 08/07/24 11:02 40 MG Nitroglycerin 0.4 mg Q5MINP PRN SL 08/05/24 18:30 Ondansetron HCl 4 mg Q8HP PRN PO 08/07/24 15:30 Amlodipine Besylate 10 mg DAILY PO 08/09/24 10:00 Melatonin 5 mg HS PO 08/08/24 22:00 objective General: the patient is well developed and nourished. No acute distress. MENTAL STATUS: Subjective SPEECH, LANGUAGE, HIGHER CORTICAL FUNCTION: no aphasia or dysathria. CRANIAL NERVES: Pupils are equal, round and reactive. EOMs full and conjugate. No nystagmus. Facial sensation intact in all three divisions bilaterally. Mandibular strength intact. Facial muscles symmetrical and strength intact. SENSATION: Sensation to touch and pinprick is diminished distally in the lower extremities MOTOR: Normal tone in the upper and lower extremity. Normal muscle bulk. No fasciculations. No abnormal movements or posturing. Muscle strength of the major groups in the extremities is 5/5. REFLEXES: Deep tendon reflexes are symmetrically diminished in the lower extremities. No pathological reflexes. CEREBELLAR/COORDINATION: Finger to nose is normal bilaterally. GAIT/STATION: Unremarkable laboratory and microbiology Laboratory Tests 08/07/24 05:18 Test 08/07/24 05:18 Range/Units Serum Glucose 87 74-106 mg/dL Problem List Chronic intermittent dizziness ? Benign paroxysmal positional vertigo ? Secondary to chronic stroke Chronic stroke with good recovery Polyneuropathy, etiology unclear ? Cognitive dysfunction ? Vascular dementia ? Alzheimer disease Assessment/Plan Monitoring Supportive treatment Telemetry MRI head wo Aspirin 81 mg daily Lipitor 80 mg daily DVT prophylaxis/Lovenox GI prophylax Meclizine p.r.n., I have advised him to avoid vertigo product as much as possible Dr. Romo on discharge Follow with his PCP BEHZAD on discharge This medical document was created using an electronic medical record system with [employer] dictation system. Although this document has been carefully reviewed, there may still be some phonetic and typographical errors. These areas are purely typographical due to imperfections of the software programs, and do not reflect any compromise in the patient's medical care. Prognosis Poor Plan discussed with: Patient, Other Total Time (mins): 35 SUNNI VELIZ MD Aug 08, 2024 14:43
--- NOTE | 2024-08-08 16:35 | DVHPNRES ---
Progress Note Date Seen: Aug 08, 2024 Resident Creating Document: TAPAN YA RESIDENT Has the PT tested + for MRSA If YES, has PT been informed?: No Medical Necessity Reason Pt with a Central, PICC or Fol: No Subjective Review of Systems 74-year-old male with prior medical history of hypertension, dyslipidemia, stroke (Late 2023 - early 2024), back pain, GERD, PAD s/p angiogram, COPD, AFib on Eliquis, possible pulmonary nodules, PTSD, possible liver cirrhosis, possible NGOZI who presented to the ED with chief complaint of dizziness and vertigo for 2 days associated with headache and palpitations. Denies chest pain, shortness of breath, and vomiting. On exam patient referred dizziness, but overall physical exam unremarkable. EKG performed in the ED showed possible premature atrial contraction. CT ABD PEL shows moderate volume colonic stool, moderate colonic stool, severe emphysema. Nonspecific diffuse urinary bladder wall thickening. Patient admitted for further monitoring. Patient seen at bedside. The patient states that he was able to dizziness persists and continues to present headache. Additionally states that his sleep has been affected during his stay due hospital activities at night. Patient was seen by Neurology who stated that dizziness was likely due patient's previous stroke and recommended outpatient follow-up. He asked questions about the following steps in terms of his follow-up care, questions were answered. Review of Systems Constitutional: Denies weight loss, fever and chills. HEENT: Denies changes in vision and hearing. Respiratory: Denies shortness of breath and cough Cardiovascular: Denies chest discomfort or palpitations GI: Mild abdominal distention, reports improvement on abdominal discomfort. : Denies dysuria and urinary frequency. Musculoskeletal: Denies myalgias and joint pain Skin: Denies rash and pruritus. Neurological: Refers dizziness and headache Objective vital signs Vital Sign Date Time Temp Pulse Resp B/P (MAP) Pulse Ox O2 Delivery O2 Flow Rate FiO2 08/08/24 13:40 66 126/75 (92) 08/08/24 13:00 98.3 18 97 98.3 08/08/24 08:00 Room Air* 0 21 Total Intake and Output 08/07/24 08/07/24 08/08/24 15:00 23:00 07:00 Intake Total 420 ml 700 ml Output Total 4520 ml Balance -4100 ml 700 ml medications Current Medications Medications Dose Ordered Sig/Georgie Route Start Time Stop Time Status Last Admin Dose Admin Acetaminophen/ Hydrocodone Bitart 1 tab Q4HPRN PRN PO 08/05/24 02:45 08/07/24 22:47 1 TAB Acetaminophen 650 mg Q6HP PO 08/05/24 06:00 08/06/24 11:47 650 MG Docusate Sodium 100 mg BIDPRN PRN PO 08/05/24 02:45 Albuterol 2.5 mg Q4HPRN PRN NEB 08/05/24 03:15 08/07/24 18:21 2.5 MG Ipratropium [place] 0.5 mg Q4HPRN PRN NEB 08/05/24 03:15 08/06/24 19:07 0.5 MG Aspirin 81 mg DAILY PO 08/05/24 10:00 08/08/24 10:16 81 MG Atorvastatin Calcium 80 mg HS PO 08/05/24 22:00 08/07/24 21:19 80 MG Meclizine HCl 25 mg Q6HPRN PRN PO 08/05/24 03:15 08/08/24 10:21 25 MG Famotidine 20 mg DAILY PO 08/05/24 10:00 08/08/24 10:16 20 MG Enoxaparin Sodium 40 mg DAILY SC 08/05/24 10:00 08/07/24 11:02 40 MG Nitroglycerin 0.4 mg Q5MINP PRN SL 08/05/24 18:30 Ondansetron HCl 4 mg Q8HP PRN PO 08/07/24 15:30 Amlodipine Besylate 10 mg DAILY PO 08/09/24 10:00 Melatonin 5 mg HS PO 08/08/24 22:00 Examination General Appearance: Alert, Oriented X3, Cooperative, No acute distress HEENT: Atraumatic, PERRLA, EOMI, Mucous membranes. moist/pink Neck: Supple Lungs: Clear to auscultation, Normal air movement Cardiovascular: Regular rate, Normal S1, Normal S2, No murmurs, Gallops, Rubs Abdomen: Normal bowel sounds, Soft, No tenderness Neuro: Cranial nerves 3-12 NL Psych/Mental Status: Mental status NL laboratory and microbiology Laboratory Tests 08/07/24 05:18 Test 08/07/24 05:18 Range/Units Serum Glucose 87 74-106 mg/dL Problem List/Assessment/Plan Problem List/Assessment/Plan Assessment and Plan: Dizziness, ?BPPV? stroke sequela? Sinus bradycardia, Possible WAP Constipation with moderate stool burden Nonspecific diffuse urinary bladder wall thickening. Hypertension -Amlodipine 10 mg PO Dyslipidemia History of stroke Back pain GERD PAD status post angiogram COPD; not in exacerbation PTSD possible liver cirrhosis Insomnia Possible obstructive sleep apnea Patient was discharged yesterday, placed an appeal to his insurance company. Today appeal was denied, patient going home today. Plan discussed with Dr. Sousa Plan discussed with the patient. Plan discussed with: Patient Date of Service: Aug 08, 2024 Billing Provider: TODD SOUSA MD Common Visit Codes: [id number] INP/OBS CARE(MOD) TAPAN YA RESIDENT Aug 08, 2024 16:35 TODD SOUSA MD Aug 08, 2024 21:20
[2024-08-08] MEDS: MELATONIN 5 MG TAB PO SCH (21:24)
--- NOTE | 2024-08-08 23:45 | DVHPN2 ---
Progress Note - Dictate Date Seen: Aug 08, 2024 Has the PT tested + for MRSA If YES, has PT been informed?: No Medical Necessity Reason Pt with a Central, PICC or Fol: No Subjective Patient was seen and evaluated in follow up. Patient is complaining of dizziness and headache. Patient reports poor sleep at night. Neurology advised that dizziness was likely due patient's previous stroke and recommended outpatient follow up. Telemetry reviewed. vital signs Vital Sign Date Time Temp Pulse Resp B/P (MAP) Pulse Ox O2 Delivery O2 Flow Rate FiO2 08/08/24 21:00 97.8 50 18 155/77 (103) 95 97.8 08/08/24 20:25 Room Air* 0 21 Total Intake and Output 08/07/24 08/07/24 08/08/24 15:00 23:00 07:00 Intake Total 420 ml 700 ml Output Total 4520 ml Balance -4100 ml 700 ml medications Current Medications Medications Dose Ordered Sig/Georgie Route Start Time Stop Time Status Last Admin Dose Admin Acetaminophen/ Hydrocodone Bitart 1 tab Q4HPRN PRN PO 08/05/24 02:45 08/08/24 20:23 1 TAB Acetaminophen 650 mg Q6HP PO 08/05/24 06:00 08/06/24 11:47 650 MG Docusate Sodium 100 mg BIDPRN PRN PO 08/05/24 02:45 Albuterol 2.5 mg Q4HPRN PRN NEB 08/05/24 03:15 08/07/24 18:21 2.5 MG Ipratropium [place] 0.5 mg Q4HPRN PRN NEB 08/05/24 03:15 08/06/24 19:07 0.5 MG Aspirin 81 mg DAILY PO 08/05/24 10:00 08/08/24 10:16 81 MG Atorvastatin Calcium 80 mg HS PO 08/05/24 22:00 08/08/24 21:24 80 MG Meclizine HCl 25 mg Q6HPRN PRN PO 08/05/24 03:15 08/08/24 20:22 25 MG Famotidine 20 mg DAILY PO 08/05/24 10:00 08/08/24 10:16 20 MG Enoxaparin Sodium 40 mg DAILY SC 08/05/24 10:00 08/07/24 11:02 40 MG Nitroglycerin 0.4 mg Q5MINP PRN SL 08/05/24 18:30 Ondansetron HCl 4 mg Q8HP PRN PO 08/07/24 15:30 Amlodipine Besylate 10 mg DAILY PO 08/09/24 10:00 Melatonin 5 mg HS PO 08/08/24 22:00 08/08/24 21:24 5 MG objective GENERAL: Alert and oriented x 3. No acute distress. EYES: PERRL, EOMI. Anicteric. HENT: Moist mucous membranes. LUNGS: Clear to auscultation bilaterally. CARDIOVASCULAR: Regular rate and rhythm. ABDOMEN: Soft, nontender and nondistended. EXTREMITIES: No edema. NEUROLOGIC: No focal neurological deficits. SKIN: Warm, dry. laboratory and microbiology Laboratory Tests 08/07/24 05:18 Test 08/07/24 05:18 Range/Units Serum Glucose 87 74-106 mg/dL Problem List Sinus bradycardia, possible WAP. Dizziness, vertigo. HTN. Assessment/Plan Continued all current supportive medical care. Aspirin, Lipitor. Amlodipine. DVT prophylactics. Nitro SL. [place] for pain management. Additional plan as per the hospital course. Plan discussed with: Patient LAZ MACIAS MD Aug 08, 2024 23:45
[2024-08-09 01:00] VITALS: BP_SYST 147; BP_SYST 150; BP_SYST 153; BP_DIAS 79; BP_DIAS 81; BP_DIAS 82; PULSE 51; RESP 17; TEMP 97.9; O2SAT 94
[2024-08-09 05:00] VITALS: BP 129/64; PULSE 50; RESP 18; TEMP 97.7; O2SAT 95
[2024-08-09 08:00] VITALS: RESP 18
[2024-08-09 09:11] VITALS: O2SAT 99
--- NOTE | 2024-08-09 14:21 | DVHPNRES ---
Progress Note Date Seen: Aug 09, 2024 Resident Creating Document: TAPAN YA RESIDENT Has the PT tested + for MRSA If YES, has PT been informed?: No Medical Necessity Reason Pt with a Central, PICC or Fol: No Subjective Review of Systems 74-year-old male with prior medical history of hypertension, dyslipidemia, stroke (Late 2023 - early 2024), back pain, GERD, PAD s/p angiogram, COPD, AFib on Eliquis, possible pulmonary nodules, PTSD, possible liver cirrhosis, possible NGOZI who presented to the ED with chief complaint of dizziness and vertigo for 2 days associated with headache and palpitations. Denies chest pain, shortness of breath, and vomiting. On exam patient referred dizziness, but overall physical exam unremarkable. EKG performed in the ED showed possible premature atrial contraction. CT ABD PEL shows moderate volume colonic stool, moderate colonic stool, severe emphysema. Nonspecific diffuse urinary bladder wall thickening. Patient admitted for further monitoring. Patient seen at bedside. The patient states that he was able to dizziness persists and continues to present headache. Patient states he is struggling to sleep. Patient was seen by Neurology who stated that dizziness was likely due p becca's previous stroke and recommended outpatient follow-up. He asked questions about the following steps in terms of his follow-up care. Review of Systems Constitutional: Denies weight loss, fever and chills. HEENT: Denies changes in vision and hearing. Respiratory: Denies shortness of breath and cough Cardiovascular: Denies chest discomfort or palpitations GI: Mild abdominal distention, reports improvement on abdominal discomfort. : Denies dysuria and urinary frequency. Musculoskeletal: Denies myalgias and joint pain Skin: Denies rash and pruritus. Neurological: Refers dizziness and headache Objective vital signs Vital Sign Date Time Temp Pulse Resp B/P (MAP) Pulse Ox O2 Delivery O2 Flow Rate FiO2 08/09/24 09:11 99 Room Air* 0 21 08/09/24 08:53 100/62 08/09/24 08:00 18 08/09/24 05:00 97.7 50 97.7 Total Intake and Output 08/08/24 08/08/24 08/09/24 15:00 23:00 07:00 Intake Total 740 ml 600 ml Output Total 400 ml Balance 340 ml 600 ml laboratory and microbiology Laboratory Tests 08/07/24 05:18 Test 08/07/24 05:18 Range/Units Serum Glucose 87 74-106 mg/dL Problem List/Assessment/Plan Problem List/Assessment/Plan Assessment and Plan: Dizziness, ? BPPV? Sinus bradycardia, Possible WAP Constipation with moderate stool burden Nonspecific diffuse urinary bladder wall thickening. Hypertension -Amlodipine 10 mg PO Dyslipidemia History of stroke Back pain GERD PAD status post angiogram COPD; not in exacerbation PTSD possible liver cirrhosis Insomnia Possible obstructive sleep apnea Patient has agreed to his discharge and will be going home today. Advised to follow up outpatient with his PCP for vestibular rehab Plan discussed with Dr. Sousa Plan discussed with the patient. Plan discussed with: Patient Date of Service: Aug 09, 2024 Billing Provider: TODD SOUSA MD Common Visit Codes: 01465-HMI/OBS DISCH DAY >30min TAPAN YA RESIDENT Aug 09, 2024 14:21 TODD SOUSA MD Aug 10, 2024 08:38
--- NOTE | 2024-08-09 22:15 | DVHPN2 ---
Progress Note - Dictate Date Seen: Aug 09, 2024 Has the PT tested + for MRSA If YES, has PT been informed?: No Medical Necessity Reason Pt with a Central, PICC or Fol: No Subjective Patient was seen and evaluated in follow up. Patient has no new complaints at this time. Patient denies any cardiac symptoms. Patient is cardiac stable for discharge. Telemetry reviewed. vital signs Vital Sign Date Time Temp Pulse Resp B/P (MAP) Pulse Ox O2 Delivery O2 Flow Rate FiO2 08/09/24 09:11 99 Room Air* 0 21 08/09/24 08:53 100/62 08/09/24 08:00 18 08/09/24 05:00 97.7 50 97.7 Total Intake and Output 08/08/24 08/08/24 08/09/24 14:59 22:59 06:59 Intake Total 740 ml 600 ml Output Total 400 ml Balance 340 ml 600 ml objective GENERAL: Alert and oriented x 3. No acute distress. EYES: PERRL, EOMI. Anicteric. HENT: Moist mucous membranes. LUNGS: Clear to auscultation bilaterally. CARDIOVASCULAR: Regular rate and rhythm. ABDOMEN: Soft, nontender and nondistended. EXTREMITIES: No edema. NEUROLOGIC: No focal neurological deficits. SKIN: Warm, dry. laboratory and microbiology Laboratory Tests 08/07/24 05:18 Test 08/07/24 05:18 Range/Units Serum Glucose 87 74-106 mg/dL Problem List Sinus bradycardia, possible WAP. Dizziness, vertigo. HTN. Assessment/Plan Continued all current supportive medical care. Aspirin, Lipitor. Amlodipine. DVT prophylactics. Nitro SL. [place] for pain management. Additional plan as per the hospital course. Plan discussed with: Patient LAZ MACIAS MD Aug 09, 2024 16:09
== END 2024-08-09 11:26 | disposition home or self-care (01) | DRG 310 ==
LOC: ER 12:13 → EDBD 12:13 → OVERFLOW 22:16 → TELE-WESTW 23:41
PROVIDERS: ADMIT Student in an Organized Health Care Education/Training Program; ATTEND Student in an Organized Health Care Education/Training Program
DX: I49.8 Other specified cardiac arrhythmias (principal); K21.9 Gastro-esophageal reflux disease without esophagitis; F43.10 Post-traumatic stress disorder, unspecified; J44.9 Chronic obstructive pulmonary disease, unspecified; E78.5 Hyperlipidemia, unspecified; I10 Essential (primary) hypertension; E11.51 Type 2 diabetes mellitus with diabetic peripheral angiopathy without gangrene; K59.00 Constipation, unspecified; G47.00 Insomnia, unspecified; G90.9 Disorder of the autonomic nervous system, unspecified; E11.40 Type 2 diabetes mellitus with diabetic neuropathy, unspecified; I25.10 Atherosclerotic heart disease of native coronary artery without angina pectoris; G47.33 Obstructive sleep apnea (adult) (pediatric); F17.200 Nicotine dependence, unspecified, uncomplicated; Z86.73 Personal history of transient ischemic attack (TIA), and cerebral infarction without residual deficits; Z82.5 Family history of asthma and other chronic lower respiratory diseases; Z82.49 Family history of ischemic heart disease and other diseases of the circulatory system; Z82.3 Family history of stroke; Z80.0 Family history of malignant neoplasm of digestive organs; Z79.899 Other long term (current) drug therapy; Z79.82 Long term (current) use of aspirin; Z88.1 Allergy status to other antibiotic agents; K74.60 Unspecified cirrhosis of liver
CPT/HCPCS: 36415; 70450; 74176; 80048; 80053; 80061; 81001; 82607; 82746; 82962; 83036; 83735; 84443; 84484; 85025; 93005; 93886; 94640; 97110; 97163; 97530; 99291; 99292; G0378